=== PATIENT | female | born 1995 | race Caucasian/White ===

== ENCOUNTER → 2016-09-14 | Outpatient (CLI) | payer MEDICAID ==
[~2016-09-14] MED LIST: ACETAMINOPHEN-H1 TA2 PO; AMOXICILLIN 50500 MG PO; AMOXICILLIN500 M2 PO; BUSPIRONE HCL7.5 MG PO; CEFDINIR 300MG300 MG PO; CITALOPRAM HYDR10 MG PO; ETODOLAC200 MG PO; ETODOLAC400 MG PO; FLEXERIL10 MG PO; KEFLEX 500MG.500 MG PO; MACROBID 100MG100 MG PO; MACROBID100 M3 PO; MOBIC15 MG PO; MOTRIN 400MG.400 MG PO; MOTRIN 600MG.600 MG PO; NAPROSYN 500MG500 MG PO; NAPROSYN500 M1 PO; NAPROXEN SOD.550 MG PO; NICOTINE T21 MG/24 H TD; NITROFURANTOIN100 M4 PO; PAROXETINE HCL10 MG PO; PERCOCET 5/3251 EACH PO; PHENERGAN25 M3 PO; PREDNISONE 20MG20 MG PO; PRENATAL PLUS1 TA1 PO; TRAZODONE 50MG50 MG PO; TYLENOL WITH CO1 TA1 PO; TYLENOL325 MG PO; ULTRAM50 MG PO; ZITHROMAX Z PA250 MG PO; ZOFRAN ODT4 MG PO
--- NOTE | 2016-09-14 20:54 | RADIOLOGY REPORT PS360 ---
ULTRASOUND THYROID PROCEDURE: Multiple sagittal & transverse ultrasound images of the thyroid. HISTORY: COMPARISON 06/09/2016:. ----- FINDINGS: Small bilateral thyroid nodules evident. Bilateral thyroid enlargement. Minimal color flow bilateral. If anything slightly diminished. RIGHT LOBE: 4.9 cm x 1.7cm x 1.5 cm. Small Nodule: 4 mm x 5.2 mm solid nodule anterior aspect midportion right lobe. (No appreciablel change since May 2016 when measured from similar points.) LEFT LOBE: 4.5 cm x 2 cm x 1.3 cm. Small Nodule : 5.5 mm vague solid nodule posterior aspect mid left lobe The nodule left lobe does measure less than 1 mm mm greater than previous study, but I believe this is merely variations in measurements with no significant change. . ISTHMUS: Appears normal 3 mm AP ---- IMPRESSION 1. Gland is enlarged bilaterally 2.. No prominent findings. No significant change since prior studies. Small unimpressive singular thyroid nodules at both right and left lobe again noted. .
== END ==
LOC: RAD 13:00
DX: E04.9 Nontoxic goiter, unspecified (principal); E04.2 Nontoxic multinodular goiter; R13.10 Dysphagia, unspecified

== ENCOUNTER → 2016-09-17 | Outpatient (CLI) | payer MEDICAID ==
[2016-09-17 14:49] LABS: BUN 13 mg/dL (7-18)
[2016-09-17 14:50] LABS: GFR (ESTIMATED) 106 ML/MIN (59-)
[2016-09-17 14:54] LABS: LYMPH # 1.2 K/mm3 (0.7-4.5); LYMPH % 10.4 % (10-50.0)
== END ==
LOC: LAB 14:27
PROVIDERS: Surgery
DX: N63 Unspecified lump in breast (principal); Z01.812 Encounter for preprocedural laboratory examination

== ENCOUNTER 2016-09-18 06:59 | Day surgery (SDC) | payer MEDICAID ==
[~2016-09-18] VITALS: Ht 167.6 cm; Wt 83.9 kg
[~2016-09-18 06:59] MED LIST changes: -ETODOLAC200 MG PO
--- NOTE | 2016-09-18 12:17 | Operative Note ---
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 After discussion with the patient concerning the risks and benefits, complete excision of the lesion was recommended. Findings: Radiographic confirmation of lesion Procedure Description: The patient had a localization needle placed in radiology prior to presenting to the operating room. Please see separate radiology report for detail. After informed consent was obtained, the patient was taken to the operating room and placed in the supine position. General anesthesia was induced the patient's RIGHT breast was prepped and draped in a sterile fashion. After infiltration with local anesthetic a curvilinear incision was made just medial to the localization needle exit site. The deep subcutaneous tissue was dissected with scalpel and electrocautery. The localization needle was brought out through the incision. The surrounding breast tissue that had been marked by the localization needle was excised with electrocautery and passed off for pathologic evaluation after being confirmed in the radiology department. Again, the lesion was noted radiographically in the specimen. It also should be noted that the specimen was marked for margin. The dyed suture was utilized to shahid the lateral and superior margins (short superior/along lateral). The non-dyed suture was utilized to shahid the superficial and deep margins (short superficial/long deep). The wound was thoroughly irrigated. Electrocautery was utilized to achieve hemostasis. Metallic clips are placed along the wound base and margin. The deep subcutaneous tissue was reapproximated with interrupted Vicryl and skin was closed with 4-0 Monocryl in a running subcuticular fashion. Steri-Strips were applied and the patient's anesthetic agents were reversed. Her laryngeal mask airway was removed prior to transfer to recovery. EBL (ml): 25 Anesthesia: General Complications: No immediate Specimens: RIGHT breast lesion Disposition Disposition: Stable to recovery from where she will be discharged home. She will follow-up in one week. at 1216
--- NOTE | 2016-09-18 13:00 | RADIOLOGY REPORT PS360 ---
US BREAST BX-NEEDLE LOC-RT, DIG MAMM-SURGICAL SPECIMEN, US ORGAN SITE (BREAST), US BREAST-RT COMPLETE W/AXILLA CLINICAL INDICATION: Right breast mass, desired for surgical excision BREAST MASS COMPARISON: Previous ultrasound of 08/19/2016 FINDINGS: TECHNIQUE: Following obtaining informed consent under aseptic conditions and local anesthesia with 1% lidocaine, using sonographic guidance, a 5 cm Kopan's needle was inserted into the nodule within the inferior periareolar region of the right breast and the wire was employed and deemed to be in good position by ultrasound. The patient tolerated the procedure well without evidence of immediate common location and left radiology suite in stable condition. Surgical specimen: Ultrasound and mammogram performed of the surgical specimen confirming that the nodule is present within the specimen with wire through the nodule Pathology: Pending IMPRESSION: Successful ultrasound-guided wire localization of right breast nodule
[2016-09-18 14:02] VITALS: BP 121/65
[2016-12-04] MEDS ORDERED: ETODOLAC200 MG PO (00:01)
== END 2016-09-18 13:35 | disposition home or self-care (01) ==
LOC: SDC 06:59
PROVIDERS: Surgery
PROC: 0HBT0ZX Excision of Right Breast, Open Approach, Diagnostic (ICD-10-PCS; principal; 2016-09-18 10:00)
DX: N60.11 Diffuse cystic mastopathy of right breast (principal)
CPT/HCPCS: J0131; J2405

== ENCOUNTER → 2017-04-05 | Outpatient (CLI) | payer MEDICAID ==
[~2017-04-05] MED LIST changes: +ALBUTEROL-200 PUFFS/ IH; +ETODOLAC200 MG PO
[2017-04-05 14:38] LABS: FASTING URINE GLUCOSE NEGATIVE
[2017-04-05 15:33] LABS: LYMPH # 1.5 K/mm3 (0.7-4.5); LYMPH % 12.4 % (10-50.0)
[2017-04-05 16:45] LABS: ABO BLOOD TYPE A; RH BLOOD TYPE POSITIVE
--- NOTE | 2017-04-05 16:48 | RADIOLOGY REPORT PS360 ---
US PREG COMP: US PREG COMP: INDICATION: 20 WEEK ANATOMICAL SURVEY ORDERING PHYSICIAN: Ino Nava MD PATIENT AGE: 22 years TECHNIQUE: ultrasound transabdominal scanning. COMPARISON: No previous relevant studies. FINDINGS: Single viable intrauterine gestation. Breech position. Placenta: Posterior placenta grade 1. There is average amount fluid. The cervix appears satisfactory. Closed and measuring 3 cm in length. Complete survey performed and was unremarkable on the submitted images as in PACS. No discrete anomalies identified on survey imaging by technologist. Active fetus. Three-vessel cord with satisfactory umbilical cord insertion. 4- chamber heart noted. Survey of brain & ventricles. Face and neck survey unremarkable. Diaphragm and chest views unremarkable. Abdomen: Both kidneys noted and unremarkable. Stomach noted and satisfactory. Spine: Survey of the spine satisfactory with no anomalies identified nor imaged. Both arms and legs noted. Amniotic Fluid: Adequate. Maternal adnexa: No significant findings. Measurements: Average ultrasound age 27 weeks 2 days. Gestational Age unknown. Estimated due date by ultrasound age 1007/03/2017. Estimated weight 1028 g grams. BPD = 26 weeks 5 days OFD = 29 weeks 2 days HC = 28 weeks 1 day AC = 27 weeks 4 days FL = 26 weeks 3 days Heart Rate = 152 BPM Cerebellum = 27 weeks 4 days Humerus = 27 weeks 3 days HC/AC is 1.12. CI is 69%. FL/BPD is 74%. FL/AC is 21%. IMPRESSION: There is a single live fetus present in breech presentation. Average ultrasound age is 27 weeks 2 days. No obvious anomalies. Posterior placenta with no evidence of previa. Please see above for detail.
[2017-04-05 17:03] LABS: 1 HR URINE GLUCOSE NEGATIVE mg/ml
[2017-04-07 08:42] LABS: HIV Screen 4th Generation wRfx Non Reactive (Non Reactive); Rapid Plasma Reagin, Quant Non Reactive (NonRea<1:1)
[2017-04-07 09:37] LABS: HBsAg Screen Negative (Negative)
[2017-04-08 06:41] LABS: Rubella Antibodies, IgG 3.68 index (Immune >0.99)
== END ==
LOC: LAB 12:31 → RAD 12:31
PROVIDERS: Nurse Practitioner Obstetrics & Gynecology
DX: Z34.80 Encounter for supervision of other normal pregnancy, unspecified trimester (principal)
CPT/HCPCS: G0432

== ENCOUNTER 2017-04-07 15:21 | Emergency (ER) | payer MEDICAID ==
[~2017-04-07] VITALS: Ht 167.6 cm; Wt 90.7 kg
[~2017-04-07 15:21] MED LIST changes: -ALBUTEROL-200 PUFFS/ IH
--- OUTSIDE RECORDS SUMMARY | 2017-04-07 15:35 | External Medical Summary Rpt ---
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 ALS SERVICE SERVICE EMERGENCY TRANSPORT LEVEL 1 91343 MICHAEL GROSSMAN NONSTRESS 6 CHAUNCEY SHAW SONAM TEST URNLS DIP 57019 TOM SANTOS 6 [facility] STICK/TAB INC INC LET REAGENT AUTO MICROSCOP Y DRUG TST G0477 TOM SANTOS PRESUMP;C 6 [facility] PBL [place]ING [place] [address] TOM SANTOS INFUSION 6 [facility] THERAPY/P INC INC ROPHYLAXI S /DX 1ST TO 1 HR UNCLASSIF J3490 TOM SANTOS IED DRUGS 6 [place] [address] TOM SANTOS INFUSION 6 [facility] THERAPY INC INC PROPHYLAX IS/DX EA HOUR CULTURE 75163 TOM SANTOS BACTERIAL 6 [facility] INC INC QUANTTATI VE COLONY COUNT URINE BLOOD 43115 TOM SANTOS COUNT 6 [facility] COMPLETE INC INC AUTO&AUTO DIFRNTL WBC UNCLASSIF J3490 TOM SANTOS IED DRUGS 6 [facility] INC INC URNLS DIP 36257 TOM SANTOS 6 [facility] STICK/TAB INC INC LET REAGENT AUTO MICROSCOP Y COMPREHEN 49520 TOM SANTOS SIVE 6 [facility] METABOLIC INC INC PANEL DRUG TST G0477 TOM SANTOS PRESUMP;C 6 [facility] PBL BEING INC INC READ DC OPT OBV ONLY URNLS DIP 76300 TOM SANTOS 6 [facility] STICK/TAB INC INC LET REAGENT AUTO MICROSCOP Y UNCLASSIF J3490 TOM SANTOS IED DRUGS 6 [facility] INC INC 16919 [facility] REECE NONSTRESS 6 PHYSICIAN JOHN TEST S GROUP CULTURE 67306 TOM SANTOS BACTERIAL 6 [facility] INC INC QUANTTATI VE COLONY COUNT URINE DRUG TST G0477 [facility] NEWELL PRESUMP;C 6 PHYSICIAN JOHN PBL BEING S GROUP READ DC OPT OBV ONLY INF AGT G0432 TOM SANTOS AB DETECT 6 [facility] EIA TECH INC INC HIV-1&/HI V-2 SCR US PREG 61895 [facility] REECE UTERUS 6 PHYSICIAN JOHN AFTER 1ST S GROUP TRIMEST GESTATION COLLECTIO 49675 TOM SANTOS N VENOUS 6 [facility] BLOOD INC INC VENIPUNCT URE OBSTETRIC 30358 TOM SANTOS PANEL 6 [facility] INC INC COMPREHEN 38131 TOM SANTOS SIVE 5 [facility] METABOLIC INC INC PANEL URNLS DIP 23569 TOM SANTOS 5 [facility] STICK/TAB INC INC LET REAGENT AUTO MICROSCOP Y BLOOD 36153 TOM SANTOS COUNT 5 [facility] COMPLETE INC INC AUTO&AUTO DIFRNTL WBC AMB A0427 [facility] SERVICE 5 AMBULANCE AMBULANCE ALS SERVICE SERVICE EMERGENCY TRANSPORT LEVEL 1 GROUND A0425 [facility] MILEAGE 5 AMBULANCE AMBULANCE PER SERVICE SERVICE STATUTE MILE THER 11275 TOM SANTOS PROPH/DX 5 [facility] NJX EA INC INC SEQL IV PUSH SBST/DRUG FAC BLOOD 34623 TOM SANTOS COUNT 5 [facility] COMPLETE INC INC AUTO&AUTO DIFRNTL WBC THER 89673 TOM SANTOS PROPH/DX 5 [facility] NJX IV INC INC PUSH SINGLE/1S T SBST/DRUG URNLS DIP 07291 TOM SANTOS 5 [facility] STICK/TAB INC INC LET REAGENT AUTO MICROSCOP Y UNCLASSIF J3490 TOM SANTOS IED DRUGS 5 [facility] INC INC BASIC 57902 TOM SANTOS METABOLIC 5 [facility] PANEL INC INC CALCIUM TOTAL US PREG 38661 [place] [facility] UTERUS 5 MEDICAL ANAND REAL TIME IMAGING W/IMAGE ASS DCMTN TRANSVAG URNLS DIP 69565 TOM SANTOS 5 [facility] STICK/TAB INC INC LET REAGENT AUTO MICROSCOP Y CULTURE 93075 TOM SANTOS BACTERIAL 5 [facility] INC INC QUANTTATI VE COLONY COUNT URINE URINE 27844 TOM SANTOS 5 [facility] TEST INC INC VISUAL COLOR CMPRSN METHS URINE 23181 TOM SANTOS 5 [facility] TEST INC INC VISUAL COLOR CMPRSN METHS URNLS DIP 42208 TOM SANTOS 5 [facility] STICK/TAB INC INC LET REAGENT AUTO MICROSCOP Y Encounters Encounter Start End Date Code Location Performer Type Date OFFICE 39837 TOM MOORE 7 7 [facility] T VISIT 5 INC MINUTES [facility]PITAL TOM - 7 7 [facility] T[facility] - 7 7 [facility] OUT[facility]EN [facility] EMERGENCY 97349 TOM 7 7 [facility] T VISIT LOW/MODER SEVERITY EMERGENCY 55437 LESLIE WHYTE DEPT 7 7 PHYSICIAN [facility] HIGH SEVERITY& THREAT FUNCJ EMERGENCY 11917 LESLIE WHYTE 7 7 [facility] T VIS[facility] HIGH/URGE NT SEVERITY OFFICE 87089 A C KILPELA OUTPATIEN 7 7 [facility] SHAW T VISIT PSC 15 MINUTES EMERGENCY 96133 LESLIE COLE 7 7 PHYSICIAN [facility] T VISIT HIGH/URGE NT SEVERITY OFFICE 63685 TOM CHIANGPATIEN 7 7 [facility] T VISIT 5 INC MINUTES HOSPITAL TOM - 7 7 [facility] OUT[facility] OFFICE 87361 A C KILPELA OUTPATIEN 7 7 [facility] SHAW T VISIT PSC 15 MINUTES OFFICE 88257 A C KILPELA OUTPATIEN 7 7 [facility] SHAW T VISIT PSC 15 MINUTES HOSPITAL TOM - 7 7 [facility] H[facility]PITAL TOM - 7 7 [facility]PATIEN [facility] HOSPITAL TOM - 7 7 [facility]PAT[facility] OFFICE 07687 [facility] SAIGE CONSULTAT 7 7 PHYSICIAN ION S GROUP NEW/ESTAB PATIENT 30 MIN HOSPITAL TOM - 6 6 [facility] OUTPATIEN [facility] EMERGENCY 89591 LESLIE WHYTE 6 6 PHYSICIAN [facility] T VISIT MODERATE SEVERITY EMERGENCY 79548 LESLIE WHYTE 6 6 PHYSICIAN [facility] T VISIT HIGH/URGE NT SEVERITY OFFICE 93218 [facility] REECE OUTPATIEN 6 6 PHYSICIAN JOHN T VISIT S GROUP 15 MINUTES HOSPITAL TOM - 6 6 [facility] OUTPATIEN INC T OFFICE 49107 A C VALE OUTPATIEN 6 6 AIXA Lakhani VISIT PSC 15 MINUTES OFFICE 64433 [facility] REECE OUTPATIEN 6 6 PHYSICIAN JOHN T VISIT S GROUP 25 MINUTES EMERGENCY 66416 LESLIE COLE [address] [facility] T VISIT HIGH/URGE NT SEVERITY OFFICE 07840 [facility] MATILDE OUTZEV 6 6 PHYSICIAN KATHERINE T NEW 20 S GROUP MINUTES HOSPITAL TOM - 6 6 [facility] OUTPATIEN INC T EMERGENCY 73245 LESLIE WHYTE 6 6 PHYSICIAN [facility] DEPARTMEN S, PLLC T VISIT HIGH/URGE NT SEVERITY EMERGENCY 18716 LESLIE LEMUS [address] [facility] T VISIT MODERATE SEVERITY EMERGENCY 47160 LESLIE COLE 6 6 PHYSICIAN [facility] T VISIT MODERATE SEVERITY OFFICE 22610 A C VALE OUTPATIEN 6 6 AIXA MACEDO T VISIT PSC 15 MINUTES HOSPITAL TOM - 6 6 [facility] OUTPATIEN INC T OFFICE 18982 A C APOORVA OUTPATIEN 6 6 AIXA STRANGE 45 PSC MINUTES EMERGENCY 42850 LESLIE WHYTE DEPT 6 6 PHYSICIAN MI VISIT S, PLLC HIGH SEVERITY& THREAT FUNCJ EMERGENCY 84480 LESLIE WHYTE 6 6 PHYSICIAN MI DEPARTMEN S, PLLC T VISIT MODERATE SEVERITY EMERGENCY 59421 TOM 6 6 [facility] T VISIT LIMITED/M INOR PROB EMERGENCY 63968 LESLIE ISABELL 6 6 PHYSICIAN MI [facility] LOW/MODER SEVERITY HOSPITAL TOM - 6 6 [facility] OUTPATIEN INC T EMERGENCY 76711 LESLIE ISABELL 6 6 PHYSICIAN [facility] T VISIT MODERATE SEVERITY HOSPITAL TOM - 6 6 [facility] OUTPATIEN INC T EMERGENCY 23885 TOM 6 6 [facility] DEPARTMEN INC T VISIT LOW/MODER SEVERITY EMERGENCY 63364 TOM 6 6 [facility] DEPARTMEN INC T VISIT LOW/MODER SEVERITY HOSPITAL TOM - 6 6 [facility] OUTPATIEN INC T EMERGENCY 71370 LESLIE ISABELL 6 6 PHYSICIAN [facility], [facility] T VISIT MODERATE SEVERITY EMERGENCY 48920 LESLIE ANDINOEY 6 6 PHYSICIAN [facility] T VISIT MODERATE SEVERITY EMERGENCY 31566 TOM 6 6 [facility] T VISIT LOW/MODER SEVERITY EMERGENCY 20778 LESLIE GREENUSCH 6 6 PHYSICIAN FAIZA BARKLEY S [facility] T VISIT MODERATE SEVERITY HOSPITAL TOM - 6 6 [facility] T EMERGENCY 79662 LESLIE CHAMBERLAINH 6 6 PHYSICIAN FAIZA [facility] S [facility] T VISIT HIGH/URGE NT SEVERITY EMERGENCY 03634 TOM 6 6 [facility] MODERATE SEVERITY HOSPITAL TOM - 6 6 [facility] OUTPATIEN INC T EMERGENCY 97206 LESLIE ISABELL 6 6 PHYSICIAN [facility], [facility] T VISIT HIGH/URGE NT SEVERITY HOSPITAL TOM - 6 6 [facility] OUTPATIEN INC T EMERGENCY 07869 TOM 6 6 [facility] T VISIT LOW/MODER SEVERITY OFFICE 94432 [facility] MARTINEZ 6 6 PHYSICIAN JOHN T VISIT S GROUP 15 MINUTES EMERGENCY 10515 TOM 6 6 [facility] T VISIT LOW/MODER SEVERITY EMERGENCY 21858 LESLIE COLE DEPT 6 6 PHYSICIAN U ANAND [facility] HIGH SEVER[facility]& THREAT [facility] TOM - 6 6 [facility] OUTPATIEN INC T EMERGENCY 78573 LESLIE WHYTE 6 6 PHYSICIAN [facility] T VISIT HIGH/URGE NT SEVERITY EMERGENCY 49725 TOM 6 6 [facility] T VISIT LOW/MODER SEVERITY HOSPITAL TOM - 6 6 [facility] T EMERGENCY 45728 LESLIE WHYTE 6 6 PHYSICIAN [facility] T VISIT MODERATE SEVERITY HOSPITAL TOM - 6 6 [facility] T EMERGENCY 91871 TOM 6 6 [facility] T VISIT LIMITED/M INOR PROB EMERGENCY 10307 LESLIE ANDINOEY 6 6 PHYSICIAN [facility] T VISIT HIGH/URGE NT SEVERITY EMERGENCY 98607 TOM 6 6 [facility] T VISIT LIMITED/M INOR PROB HOSPITAL TOM - 6 6 [facility] OUTPATIEN [facility] T EMERGENCY 00939 TOM 6 6 [facility] DEPARTMEN INC T VISIT LOW/MODER SEVERITY HOSPITAL TOM - 6 6 [facility] OUTPATIEN [facility] T EMERGENCY 20594 LESLIE BLOCK, 6 6 PHYSICIAN [facility], [facility] T VISIT HIGH/URGE NT SEVERITY HOSPITAL TOM - 6 6 [facility] OUTPATIEN INC T EMERGENCY 00243 TOM 6 6 [facility] T VISIT LOW/MODER SEVERITY EMERGENCY 80861 LESLIE WHYTE 6 6 [facility]ICIAN [facility] T VISIT MODERATE SEVERITY HOSPITAL TOM - 6 6 [facility] INPATIENT [facility] TOM [facility] 6 6 [facility] OUTPATIEN [facility] OFFICE 50920 [facility] 6 6 PHYSICIAN JOHN T VISIT S GROUP 15 MINUTES HOSPITAL TOM - 6 6 [facility] OUTPATIEN [facility] EMERGENCY 51047 LESLIE WHYTE 6 6 PHYSICIAN [facility], [facility] T VISIT HIGH/URGE NT SEVERITY EMERGENCY 32923 TOM 6 6 [facility] T VISIT MODERATE SEVERITY HOSPITAL TOM - 6 6 [facility] OUTPATIEN [facility] H[facility]PITAL TOM - 6 6 [facility] OUTPATIEN [facility] H[facility]PITAL TOM [facility] 6 6 [facility] OUTPATIEN [facility] H[facility]PITAL TOM - 5 5 [facility] EMERGENCY 18404 LESLIE WHYTE 5 5 PHYSICIAN [facility] DEPARTMEN S, [facility] T VISIT HIGH/URGE NT SEVERITY EMERGENCY 44904 TOM 5 5 [facility] T VISIT LOW/MODER SEVERITY EMERGENCY 01899 LESLIE MCGOWAN 5 5 PHYSICIAN DEPARTMEN S, [facility] T VISIT HIGH/URGE NT SEVERITY EMERGENCY 56339 TOM 5 5 [facility] T VISIT MODERATE SEVERITY HOSPITAL TOM - 5 5 [facility] T EMERGENCY 14635 LESLIE MENDEZ 5 5 PHYSICIAN DEPARTMEN S, [facility] T VISIT HIGH/URGE NT SEVERITY EMERGENCY 75728 TOM 5 5 [facility] T VISIT LOW/MODER SEVERITY HOSPITAL TOM - 5 5 [facility] EMERGENCY 73121 TOM 5 5 [facility] T VISIT LOW/MODER SEVERITY HOSPITAL TOM - 5 5 [facility]
--- OUTSIDE RECORDS SUMMARY | 2017-04-07 15:35 | External Medical Summary Rpt ---
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 [facility]IS[facility] HIGH/URGE NT SEVERITY EMERGENCY 24827 TOM 6 6 [facility] INC T VISIT MODERATE SEVERITY HOSPITAL TOM - 6 6 [facility] OUTPATIEN INC T EMERGENCY 47136 LESLIE ISABELL 6 6 PHYSICIAN [facility], [facility]IS[facility] HIGH/URGE NT SEVERITY HOSPITAL TOM - 6 6 [facility] OUTPATIEN INC T EMERGENCY 88658 TOM 6 6 [facility] T VISIT LOW/MODER SEVERITY OFFICE 99223 [facility] 6 PHYSICIAN JOHN T VISIT S GROUP 15 MINUTES EMERGENCY 63361 TOM 6 6 [facility] T VISIT LOW/MODER SEVERITY EMERGENCY 76652 LESLIE COLE DEPT 6 6 PHYSICIAN U ANAND VISIT [facility] HIGH SEVERITY& THREAT [facility] TOM - 6 6 [facility] OUTPATIEN INC T EMERGENCY 96148 LESILE WHYTE 6 6 PHYSICIAN [facility], [facility] T VISIT HIGH/URGE NT SEVERITY EMERGENCY 19948 TOM 6 6 [facility] T VISIT LOW/MODER SEVERITY HOSPITAL TOM - 6 6 [facility] T EMERGENCY 56842 LESLIE WHYTE 6 6 PHYSICIAN [facility], [facility] T VISIT MODERATE SEVERITY HOSPITAL TOM - 6 6 [facility] T EMERGENCY 49795 TOM 6 6 [facility] T VISIT LIMITED/M INOR PROB EMERGENCY 72599 LESLIE ANDINOEY 6 6 PHYSICIAN [facility] S, [facility] T VISIT HIGH/URGE NT SEVERITY EMERGENCY 80881 TOM 6 6 [facility] T VISIT LIMITED/M INOR PROB HOSPITAL TOM - 6 6 [facility] T EMERGENCY 17229 TOM 6 6 [facility] DEPARTMEN INC T VISIT LOW/MODER SEVERITY HOSPITAL TOM - 6 6 [facility] T EMERGENCY 00552 LESLIE BLOCK, 6 6 PHYSICIAN [facility] S, [facility] T VISIT HIGH/URGE NT SEVERITY HOSPITAL TOM - 6 6 [facility] T EMERGENCY 16233 TOM 6 6 [facility] T VISIT LOW/MODER SEVERITY EMERGENCY 11646 LESLIE WHYTE 6 6 PHYSICIAN [facility], [facility] T VISIT MODERATE SEVERITY HOSPITAL TOM - 6 6 [facility] INPATIENT [facility] TOM [facility] 6 6 [facility] OUTPATIEN [facility] OFFICE 97007 [facility] PHYSICIAN JOHN T VISIT S GROUP 15 MINUTES HOSPITAL TOM - 6 6 [facility] OUTPATIEN [facility] EMERGENCY 06970 LESLIE WHYTE 6 6 PHYSICIAN [facility] S, [facility] T VISIT HIGH/URGE NT SEVERITY EMERGENCY 51460 TOM 6 6 [facility] T VISIT MODERATE SEVERITY HOSPITAL TOM - 6 6 [facility] OUTPATIEN [facility] HOSPITAL TOM - 6 6 [facility] OUTPATIEN [facility] HOSPITAL TOM - 6 6 [facility] OUTPATIEN [facility] HOSPITAL TOM - 5 5 [facility] EMERGENCY 95027 ELSLIE WHYTE 5 5 PHYSICIAN [facility] HIGH/URGE NT SEVERITY EMERGENCY 50717 TOM 5 5 [facility] T VISIT LOW/MODER SEVERITY EMERGENCY 66932 LESLIE MCGOWAN 5 5 PHYSICIAN [facility], [facility] HIGH/URGE NT SEVERITY EMERGENCY 69511 TOM 5 5 [facility] T VISIT MODERATE SEVERITY HOSPITAL TOM - 5 5 [facility] T EMERGENCY 62236 LESLIE MENDEZ 5 5 PHYSICIAN [facility], [facility] HIGH/URGE NT SEVERITY EMERGENCY 78161 TOM 5 5 [facility] T VISIT LOW/MODER SEVERITY HOSPITAL TOM - 5 5 [facility] 44453 TOM 5 5 [facility] T VISIT LOW/MODER SEVERITY HOSPITAL TOM - 5 5 [facility]
--- OUTSIDE RECORDS SUMMARY | 2017-04-07 15:40 | External Medical Summary Rpt ---
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 EMERGENCY 91959 LESLIE WHYTE 6 6 PHYSICIAN MI DEPARTMEN S, PLLC T VISIT MODERATE SEVERITY HOSPITAL TOM - 6 6 [facility] OUTPATIEN INC T EMERGENCY 51891 TOM 6 6 [facility] DEPARTMEN INC T VISIT LIMITED/M INOR PROB EMERGENCY 26074 LESLIE WHYTE 6 6 PHYSICIAN MI DEPARTMEN S, PLLC T VISIT LOW/MODER SEVERITY HOSPITAL TOM - 6 6 [facility] OUTPATIEN INC T EMERGENCY 41995 LESLIE WHYTE 6 6 PHYSICIAN MI DEPARTMEN S, PLLC T VISIT MODERATE SEVERITY EMERGENCY 40771 TOM 6 6 [facility] DEPARTMEN INC T VISIT LOW/MODER SEVERITY HOSPITAL TOM - 6 6 [facility] OUTPATIEN INC T EMERGENCY 39893 LESLIE WHYTE 6 6 PHYSICIAN MI DEPARTMEN S, PLLC T VISIT MODERATE SEVERITY EMERGENCY 83101 TOM 6 6 [facility] DEPARTMEN INC T VISIT LOW/MODER SEVERITY EMERGENCY 75263 LESLIE WHYTE 6 6 PHYSICIAN MI DEPARTMEN S, PLLC T VISIT MODERATE SEVERITY EMERGENCY 72357 TOM 6 6 [facility] DEPARTMEN INC T VISIT LOW/MODER SEVERITY EMERGENCY 18574 LESLIE LEMUS 6 6 PHYSICIAN FAIZA DEPARTMEN S, PLLC T VISIT MODERATE SEVERITY HOSPITAL TOM - 6 6 [facility] OUTPATIEN INC T EMERGENCY 27569 LESLIE LEMUS 6 6 [facility]IC[facility], [facility] T VISIT HIGH/URGE NT SEVERITY EMERGENCY 70823 TOM 6 6 [facility] T VISIT MODERATE SEVERITY HOSPITAL TOM - 6 6 [facility] T EMERGENCY 48822 LESLIE WHYTE 6 6 PHYSICIAN [facility] S, [facility] T VISIT HIGH/URGE NT SEVERITY EMERGENCY 57580 TOM 6 [address] [facility] T VISIT LOW/MODER SEVERITY HOSPITAL TOM - 6 6 [facility] 11339 [facility] 6 6 PHYSICIAN JOHN T VISIT S GROUP 15 MINUTES HOSPITAL TOM - 6 6 [facility] EMERGENCY 91215 LESLIE COLE DEPT 6 6 PHYSICIAN Bonita MICHEL VISIT [facility] HIGH SEVERITY& THREAT FUNCJ EMERGENCY 56439 TOM 6 [address] [facility] T VISIT LOW/MODER SEVERITY EMERGENCY 19376 LESLIE WHYTE 6 6 PHYSICIAN [facility] S [facility] T VISIT HIGH/URGE NT SEVERITY EMERGENCY 43360 TOM 6 [address] [facility] T VISIT LOW/MODER SEVERITY HOSPITAL TOM - 6 6 [facility] EMERGENCY 59096 LESLIE WHYTE 6 6 PHYSICIAN [facility] S, [facility] T VISIT MODERATE SEVERITY HOSPITAL TOM - 6 6 [facility] T EMERGENCY 90634 TOM 6 6 [facility] T VISIT LIMITED/M INOR PROB EMERGENCY 91604 LESLIE WHYTE 6 6 PHYSICIAN [facility] S, [facility] T VISIT HIGH/URGE NT SEVERITY HOSPITAL TOM - 6 6 [facility] OUTPATIEN [facility] T EMERGENCY 76521 TOM 6 6 [facility] T VISIT LIMITED/M INOR PROB HOSPITAL TOM - 6 6 [facility] OUTPATIEN [facility] T EMERGENCY 91311 TOM 6 [address] [facility] T VISIT LOW/MODER SEVERITY EMERGENCY 64020 LESLIE BLOCK, 6 6 PHYSICIAN [facility], [facility] T VISIT HIGH/URGE NT SEVERITY HOSPITAL TOM - 6 6 [facility] OUTPATIEN [facility] EMERGENCY 79953 LESLIE WHYTE 6 6 PHYSICIAN [facility], [facility] T VISIT MODERATE SEVERITY EMERGENCY 23970 TOM 6 6 [facility] T VISIT LOW/MODER SEVERITY HOSPITAL TOM - 6 6 [facility] INPATIENT [facility] H[facility]PITAL TOM [facility] 6 6 [facility] OUTPATIEN [facility] OFFICE 73814 [facility] 6 6 PHYSICIAN JOHN T VISIT S GROUP 15 MINUTES HOSPITAL TOM [facility] 6 6 [facility] OUTPATIEN [facility] EMERGENCY 81498 TOM 6 [address] [facility] T VISIT MODERATE SEVERITY HOSPITAL TOM - 6 6 [facility] OUTPATIEN [facility] T EMERGENCY 63223 LESLIE WHYTE 6 6 PHYSICIAN [facility], [facility] T VISIT HIGH/URGE NT SEVERITY HOSPITAL TOM - 6 6 [facility] OUTPATIEN [facility] TOM - 6 6 [facility] OUTPATIEN [facility] T EMERGENCY 00996 [facility]OM 5 [address] [facility] T VISIT LOW/MODER SEVERITY HOSPITAL TOM - 5 5 [facility] OUTPATIEN INC T EMERGENCY 10807 LESLIE WHYTE 5 5 PHYSICIAN [facility] DEPARTMEN S, [facility] T VISIT HIGH/URGE NT SEVERITY EMERGENCY 01343 LESLIE MCGOWAN 5 5 PHYSICIAN DEPARTMEN S, [facility] T VISIT HIGH/URGE NT SEVERITY EMERGENCY 05881 [facility] 5 [facility] T VISIT MODERATE SEVERITY HOSPITAL TOM - 5 5 [facility] OUTPATIEN [facility] T EMERGENCY 08424 LESLIE MENDEZ 5 5 PHYSICIAN DEPARTMEN S, [facility] T VISIT HIGH/URGE NT SEVERITY HOSPITAL TOM - 5 5 [facility] OUTPATIEN INC T EMERGENCY 60628 [facility]OM 5 5 [facility] T VISIT [facility]OW[facility]MODER SEVERITY HOSPITAL TOM - 5 5 [facility] OUTPATIEN INC T EMERGENCY 71025 [facility]OM 5 5 [facility] T VISIT LOW/MODER SEVERITY
--- OUTSIDE RECORDS SUMMARY | 2017-04-07 15:40 | External Medical Summary Rpt ---
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 6 [facility] T VISIT LOW/MODER SEVERITY HOSPITAL TOM [facility] 6 6 [facility] EMERGENCY 25869 LESLIE WHYTE 6 6 PHYSICIAN [facility] S, [facility] T VISIT MODERATE SEVERITY HOSPITAL TOM - 6 6 [facility] T EMERGENCY 26528 TOM 6 6 [facility] T VISIT LIMITED/M INOR PROB EMERGENCY 84973 LESLIE WHYTE 6 6 PHYSICIAN [facility] S, [facility] T VISIT HIGH/URGE NT SEVERITY HOSPITAL TOM - 6 6 [facility] OUTPATIEN [facility] T EMERGENCY 93407 [facility] T VISIT LIMITED/M INOR PROB HOSPITAL TOM - 6 6 [facility] OUTPATIEN [facility] T EMERGENCY 29461 TOM 6 6 [facility] T VISIT LOW/MODER SEVERITY EMERGENCY 08048 LESLIE BLOCK, 6 6 PHYSICIAN [facility], [facility] T VISIT HIGH/URGE NT SEVERITY HOSPITAL TOM - 6 6 [facility] OUTPATIEN [facility], [facility] EMERGENCY 02428 LESLIE WHYTE 6 6 PHYSICIAN [facility], [facility] T VISIT MODERATE SEVERITY EMERGENCY 87809 TOM 6 6 [facility] T VISIT LOW/MODER SEVERITY HOSPITAL TOM - 6 6 [facility] INPATIENT [facility] HOSPITAL TOM [facility] 6 6 [facility] OUTPATIEN [facility], [facility] OFFICE 73444 [facility] 6 6 PHYSICIAN JOHN T VISIT S GROUP 15 MINUTES HOSPITAL TOM [facility] 6 6 [facility] OUTPATIEN [facility] EMERGENCY 70453 TOM 6 6 [facility] T VISIT MODERATE SEVERITY HOSPITAL TOM - 6 6 [facility] OUTPATIEN [facility] T EMERGENCY 45927 LESLIE WHYTE 6 6 PHYSICIAN [facility], [facility] T VISIT HIGH/URGE NT SEVERITY HOSPITAL TOM - 6 6 [facility] OUTPATIEN [facility] HOSPITAL TOM [facility] 6 6 [facility] OUTPATIEN [facility] T EMERGENCY 10777 TOM 5 5 [facility] T VISIT LOW/MODER SEVERITY HOSPITAL TOM - 5 5 [facility] OUTPATIEN INC T EMERGENCY 50431 LESLIE WHYTE 5 5 PHYSICIAN [facility] DEPARTMEN S, [facility] T VISIT HIGH/URGE NT SEVERITY EMERGENCY 38784 LESLIE MCGOWAN 5 5 PHYSICIAN DEPARTMEN S, [facility] T VISIT HIGH/URGE NT SEVERITY EMERGENCY 30892 [facility] T VISIT MODERATE SEVERITY HOSPITAL TOM - 5 5 [facility] OUTPATIEN [facility] T EMERGENCY 75723 LESLIE MENDEZ 5 5 PHYSICIAN DEPARTMEN S, [facility] T VISIT HIGH/URGE NT SEVERITY HOSPITAL TOM - 5 5 [facility] OUTPATIEN INC T EMERGENCY 09182 TOM 5 5 [facility] T VISIT LOW/MODER SEVERITY HOSPITAL TOM - 5 5 [facility] OUTPATIEN INC T EMERGENCY 60246 TOM 5 5 [facility] T VISIT LOW/MODER SEVERITY
--- OUTSIDE RECORDS SUMMARY | 2017-04-07 15:41 | External Medical Summary Rpt ---
Demographics Preferred Language Bengali Marital Status Unknown Faith Affiliation Unknown Race Unknown Ethnic Group Unknown Author Author , JESUS LEE Address Unknown Phone Immunization Unable to retrieve immunization data due to connection failure with Immunization Registry. Please try again later.
--- OUTSIDE RECORDS SUMMARY | 2017-04-07 15:41 | External Medical Summary Rpt ---
Author Author JESUS Opal, [employer] Address Unknown Phone Unavailable Results Glucose [Presence] in Urine by Test strip --1 hour post 75 g glucose PO Observa Value Referen Units Interpr Notes Date ti ce etation Range Glucose No mg/dL No No Apr 05 [Mass/vol informati informati informati 2017 2:05 ume] in on in on in on in PM Serum or source source source Plasma data data data --1 hour post dose glucose Glucose NEGATIV No mg/ml No No Apr 05 E informa informa informa 2016 [Presen tion in tion in tion in 2:05 PM ce] in source source source Urine data data data by Test strip Glucose NEGATIV No mg/dL No No Apr 05 E informa informa informa 2016 [Presen tion in tion in tion in 2:05 PM ce] in source source source Urine data data data by Automat ed test strip Fasting 60 - 105 mg/dL Normal No Apr 05 glucose informati 2016 2:05 [Mass/vol on in PM ume] in source Serum or data Plasma Blood group antibody screen [Presence] in Serum or Plasma Observa Value Referen Units Interpr Notes Date ti ce etation Range Blood NEGATIV NEGATIV No No No Apr 05 group E E informa informa informa 2016 antibod tion in tion in ti in 1:58 PM y source source source screen data data data [Presen ce] in Serum or Plasma Rh [Type] in Blood Observa Value Referen Units Interpr Notes Date ti ce etation Range Rh POSITIV No No No No Apr 05 [Type] E informa informa informa informa 2016 in tion in tion in tion in tion in 1:58 PM Blood source source source source data data data data ABO group [Type] in Blood Observa Value Referen Units Interpr Notes Date ce etation Range ABO A No No No No Apr 05 group informa informa informa informa 2017 [Type] tion in tion in tion in tion in 1:58 PM in source source source source Blood data data data data CBC W Auto Differential panel in Blood Observa Value Referen Units Interpr Notes Date tion ce etation Range Basophils 0 - 0.2 K/MM3 Normal No Apr 05 inform2016 1:58 [#/volume on in PM ] in source Blood by data Automated count Basophils 0.1 - 2.0 % Normal No Apr 05 / informati 2016 1:58 leukocyte on in PM s in source Blood by data Automated count Eosinophi 0.0 - 0.4 K/mm3 Normal No Apr 05 ls informati 2016 1:58 [#/volume on in PM ] in source Blood by data Automated count Eosinophi 0.1 - % Normal No Apr 05 ls/100 12.0 informati 2016 1:58 leukocyte on in PM s in source Blood by data Automated count Granulocy 1.8 - 7.8 K/mm3 High No Apr 05 gillian informati 2016 1:58 [#/volume on in PM ] in source Blood by data Automated count Granulocy 37.0 - % High No Apr 05 gillian/100 80.0 informati 2016 1:58 leukocyte on in PM s in source Blood by data Automated count Hematocri 37.0 - % Low No Apr 05 t [Volume 47.0 informati 2016 1:58 on in PM Fraction] source of Blood data Hemoglobi 12.2 - g/dL Low No Apr 05 n 16.2 informati 2016 1:58 [Mass/vol on in PM ume] in source Blood data Lymphocyt 0.7 - 4.5 K/mm3 Normal No Apr 05 es informati 2016 1:58 [#/volume on in PM ] in source Unspecifi data ed specimen by Automated count Lymphocyt 10 - 50.0 % Normal No Apr 05 es informati 2016 1:58 [#/volume on in PM ] in source Unspecifi data ed specimen by Automated count Erythrocy 27 - 31.2 pg High No Apr 05 te mean informati 2016 1:58 corpuscul on in PM ar source hemoglobi data n [Entitic mass] Erythrocy 31.8 - g/dl Normal No Apr 05 te mean 35.4 informati 2016 1:58 corpuscul on in PM ar source hemoglobi data n concentra tion [Mass/vol ume] by Automated count Erythrocy 82.2 - fl High No Apr 05 te mean 97.8 informati 2016 1:58 corpuscul on in PM ar volume source [Entitic data volume] by Automated count Monocytes 0.1 - 1.0 K/mm3 Normal No Apr 05 informati 2016 1:58 [#/volume on in PM ] in source Blood by data Automated count Monocytes 1.7 - 9.3 % Normal No Apr 05 /100 informati 2016 1:58 leukocyte on in PM s in source Blood by data Automated count Platelet 7.4 - fl Normal No Apr 05 mean 10.4 informati 2016 1:58 volume on in PM [Entitic source volume] data in Blood by Automated count Platelets 142 - 424 K/mm3 Normal No Apr 05 informati 2016 1:58 [#/volume on in PM ] in source Blood data Erythrocy 4.2 - 5.4 M/mm3 Low No Apr 05 gillian informati 2016 1:58 [#/volume on in PM ] in source Amniotic data fluid Erythrocy 11.5 - % Normal No Apr 05 te 17.5 informati 2016 1:58 distribut on in PM ion width source [Entitic data volume] by Automated count Leukocyte 4.8 - K/MM3 High No Apr 05 s 10.8 informati 2016 1:58 [#/volume on in PM ] in source Blood data Choriogonadotropin.beta subunit ( test) [Presence] in Serum or Plasma Observa Value Referen Units Interpr Notes Date tion ce etation Range Choriog 76537.3 No mIU/ML No NON-PRE February 10 onadotr informa informa GNANT 2017 opin.be tion in tion in FEMALES 9:03 PM ta source source subunit data data REFEREN CE (pregna RANGE = ncy 0 - 6 test) mIU/mLG [Presen estatio ce] in nal Age Serum or HCG Plasma RANGE0. 2 WEEKS 5 - 501-2 WEEKS 50 - 5002-3 WEEKS 100 - 5,0003- 4 WEEKS 500 - 10,0004 -5 WEEKS 1,000 - 50,0005 -6 WEEKS 10,000 - 100,000 6-8 WEEKS 15,000 - 200,000 2-3 MONTHS 10,000 - 100,000 Choriogonadotropin.beta subunit ( test) [Presence] in Serum or Plasma Observa Value Referen Units Interpr Notes Date tion ce etation Range Choriog 61808.5 No mIU/ML No NON-PRE February 04 onadotr informa informa GNANT 2017 opin.be tion in tion in FEMALES 9:50 PM ta source source subunit data data REFEREN CE (pregna RANGE = ncy 0 - 6 test) mIU/mLG [Presen estatio ce] in nal Age Serum or HCG Plasma RANGE0. 2 WEEKS 5 - 501-2 WEEKS 50 - 5002-3 WEEKS 100 - 5,0003- 4 WEEKS 500 - 10,0004 -5 WEEKS 1,000 - 50,0005 -6 WEEKS 10,000 - 100,000 6-8 WEEKS 15,000 - 200,000 2-3 MONTHS 10,000 - 100,000 Amylase [Enzymatic activity/volume] in Serum or Plasma Observa Value Referen Units Interpr Notes Date ti ce etation Range Amylase 25 - 115 U/L Normal No February 04 [Enzymati informati 2016 9:50 c on in PM activity/ source volume] data in Serum or Plasma Comprehensive metabolic 2000 panel in Serum or Plasma Observa Value Referen Units Interpr Notes Date tion ce etation Range Albumin/G 1.1 - 1.8 No Low No February 04 lobulin informati informati 2016 9:50 [Mass on in on in PM ratio] in source source Serum or data data Plasma Albumin 3.4 - 5.0 gm/dL Low No February 04 [Mass/vol informati 2016 9:50 ume] in on in PM Serum or source Plasma data Alkaline 46 - 116 U/L Normal No February 04 phosphata informati 2016 9:50 se on in PM [Enzymati source c data activity/ volume] in Serum or Plasma Bilirubin 0.2 - 1.0 mg/dL Normal No February 04 .total informati 2016 9:50 [Mass/vol on in PM ume] in source Serum or data Plasma Urea 7 - 18 mg/dL Low No February 04 nitrogen informati 2016 9:50 [Mass/vol on in PM ume] in source Serum or data Plasma Calcium 8.5 - mg/dL Normal No February 04 [Mass/vol 10.1 informati 2017 9:50 ume] in on in PM Serum or source Plasma data Chloride 98 - 107 mmoL/L Normal No February 04 [Moles/vo informati 2017 9:50 lume] in on in PM Serum or source Plasma data Carbon 21.0 - mmoL/L Normal No February 04 dioxide, 32.0 informati 2016 9:50 total on in PM [Moles/vo source lume] in data Serum or Plasma Creatinin 0.55 - mg/dL Normal No February 04 e 1.02 informati 2016 9:50 [Mass/vol on in PM ume] in source Serum or data Plasma Creatinin 50 - 200 ML/MIN High No February 04 e renal informati 2016 9:50 clearance on in PM source predicted data by Cockcroft -Gault formula Estimated 59- ML/MIN No REFERENCE February 04 informati RANGE: 2017 9:50 glomerula on in >60 PM r source ML/MIN/1. filtratio data 73 SQUARE n rate METERSIf (GF this patient is -A merican, then multiply theresult by 1.210. Globulin 1.3 - 3.2 gm/dL Normal No February 04 [Mass/vol informati 2016 9:50 ume] in on in PM Serum source data Glucose 74 - 106 mg/dL High No February 04 [Mass/vol informati 2016 9:50 ume] in on in PM Serum or source Plasma data Potassium 3.5 - 5.1 mmoL/L Normal No February 04 informati 2016 9:50 [Moles/vo on in PM lume] in source Serum or data Plasma Sodium 136 - 145 mmoL/L Normal No February 04 [Moles/vo informati 2016 9:50 lume] in on in PM Serum or source Plasma data Aspartate 15 - 37 U/L Low No February 04 informati 2016 9:50 aminotran on in PM sferase source [Enzymati data c activity/ volume] in Serum or Plasma Alanine 12 - 78 U/L Normal No February 04 aminotran informati 2016 9:50 sferase on in PM [Enzymati source c data activity/ volume] in Serum or Plasma Protein 6.4 - 8.2 gm/dL Low No February 04 [Mass/vol informati 2016 9:50 ume] in on in PM Serum or source Plasma data Lipase [Enzymatic activity/volume] in Serum or Plasma Observa Value Referen Units Interpr Notes Date tion ce etation Range Lipase 73 - 393 U/L Normal No February 04 [Enzymati informati 2016 9:50 c on in PM activity/ source volume] data in Serum or Plasma CBC W Auto Differential panel in Blood Observa Value Referen Units Interpr Notes Date tion ce etation Range Basophils 0 - 0.2 K/MM3 Normal No February 04 inform2016 9:50 [#/volume on in PM ] in source Blood by data Automated count Basophils 0.1 - 2.0 % Normal No February 04 / inform2016 9:50 leukocyte on in PM s in source Blood by data Automated count Eosinophi 0.0 - 0.4 K/mm3 Normal No February 04 ls informati 2016 9:50 [#/volume on in PM ] in source Blood by data Automated count Eosinophi 0.1 - % Normal No February 04 ls/100 12.0 informati 2016 9:50 leukocyte on in PM s in source Blood by data Automated count Granulocy 1.8 - 7.8 K/mm3 Normal No February 04 gillian informati 2016 9:50 [#/volume on in PM ] in source Blood by data Automated count Granulocy 37.0 - % Normal No February 04 gillian/100 80.0 informati 2016 9:50 leukocyte on in PM s in source Blood by data Automated count Hematocri 37.0 - % Normal No February 04 t [Volume 47.0 informati 2016 9:50 on in PM Fraction] source of Blood data Hemoglobi 12.2 - g/dL No February 04 n 16.2 informati informati 2016 9:50 [Mass/vol on in on in PM ume] in source source Blood data data Lymphocyt 0.7 - 4.5 K/mm3 Normal No February 04 es informati 2016 9:50 [#/volume on in PM ] in source Unspecifi data ed specimen by Automated count Lymphocyt 10 - 50.0 % Normal No February 04 es informati 2016 9:50 [#/volume on in PM ] in source Unspecifi data ed specimen by Automated count Erythrocy 27 - 31.2 pg High No February 04 te mean informati 2016 9:50 corpuscul on in PM ar source hemoglobi data n [Entitic mass] Erythrocy 31.8 - g/dl Normal No February 04 te mean 35.4 informati 2016 9:50 corpuscul on in PM ar source hemoglobi data n concentra tion [Mass/vol ume] by Automated count Erythrocy 82.2 - fl Normal No February 04 te mean 97.8 informati 2016 9:50 corpuscul on in PM ar volume source [Entitic data volume] by Automated count Monocytes 0.1 - 1.0 K/mm3 Normal No February 042016 9:50 [#/volume on in PM ] in source Blood by data Automated count Monocytes 1.7 - 9.3 % Normal No February 04 /100 informati 2016 9:50 leukocyte on in PM s in source Blood by data Automated count Platelet 7.4 - fl Low No February 04 mean 10.4 informati 2016 9:50 volume on in PM [Entitic source volume] data in Blood by Automated count Platelets 142 - 424 K/mm3 Normal No February 04 informati 2016 9:50 [#/volume on in PM ] in source Blood data Erythrocy 4.2 - 5.4 M/mm3 Low No February 04 gillian ati 2016 9:50 [#/volume on in PM ] in source Amniotic data fluid Erythrocy 11.5 - % Normal February 04 te 17.5 ati 2016 9:50 distribut on in PM ion width source [Entitic data volume] by Automated count Leukocyte 4.8 - K/MM3 Normal No February 04 s 10.8 ati 2016 9:50 [#/volume on in PM ] in source Blood data Urinalysis dipstick W Reflex Microscopic panel in Urine Observa Value Referen Units Interpr Notes Date tion ce etation Range Appeara CLEAR CLEAR No No No February 04 nce of informa informa informa 2016 Urine tion in tion in tion in 9:35 PM source source source data data data Bacteri 1+ O No No No February 04 a informa informa informa 2016 [Presen tion in tion in tion in 9:35 PM ce] in source source source Urine data data data sedimen t by Light microsc opy Bilirub NEGATIV NEG No No No February 04 in E informa informa informa 2016 [Presen tion in tion in tion in 9:35 PM ce] in source source source Urine data data data by Test strip Erythro NEGATIV NEG No No No February 04 cytes E informa informa informa 2016 [Presen tion in tion in tion in 9:35 PM ce] in source source source Urine data data data Color YELLOW YELLOW No No No February 04 of informa informa informa 2016 Urine tion in tion in tion in 9:35 PM source source source data data data Glucose NEG No No No February 04 [Mass/vol informati informati informati 2016 9:35 ume] in on in on in on in PM Urine by source source source Test data data data strip Ketones NEGATIV NEG mg/dL No No February 04 E informa informa 2016 [Presen tion in tion in 9:35 PM ce] in source source Urine data data by Automat ed test strip Mucus 2+ NEG No Abnorma No February 04 [Presen informa l informa 2016 ce] in tion in tion in 9:35 PM Urine source source sedimen data data t by Light microsc opy Nitrite NEGATIV NEG No No No February 04 E informa informa informa 2016 [Presen tion in tion in tion in 9:35 PM ce] in source source source Urine data data data by Test strip pH of 5.0 - 8.5 No Normal No February 04 Urine informati informati 2016 9:35 on in on in PM source source data data Protein NEG mg/dL No No February 04 [Mass/vol informati informati 2016 9:35 ume] in on in on in PM Urine by source source Automated data data test strip Erythro 5-10 0 rbc/hpf No No February 04 cytes informa informa 2016 [Presen tion in tion in 9:35 PM ce] in source source Urine data data sedimen t by Light microsc opy Specific 1.005 - No Normal No February 04 gravity 1.030 informati informati 2016 9:35 of Urine on in on in PM source source data data Epithel 10-20 0 - 5 #/hpf No No February 04 ial informa informa 2016 cells.s tion in tion in 9:35 PM quamous source source data data [Presen ce] in Urine sedimen t by Microsc opy high power field Trichom 1+ NONE No No No February 04 onas sp informa informa informa 2017 tion in tion in tion in 9:35 PM [Presen source source source ce] in data data data Urine by Light microsc opy Urobili 1.0 NEG E.U./dL No No February 04 nogen informa informa 2016 [Presen tion in tion in 9:35 PM ce] in source source Urine data data by Test strip Leukocy [5 O wbc/hpf No No February 04 gillian wbc/hpf informa informa 2016 [#/volu ; 10 tion in tion in 9:35 PM me] in wbc/hpf source source Urine ] data data Urinalysis dipstick W Reflex Microscopic panel in Urine Observa Value Referen Units Interpr Notes Date tion ce etation Range Appeara CLEAR CLEAR No No No February 04 nce of informa informa informa 2016 Urine tion in tion in tion in 9:35 PM source source source data data data Bilirub NEGATIV NEG No No No February 04 in E informa informa informa 2016 [Presen tion in tion in tion in 9:35 PM ce] in source source source Urine data data data by Test strip Erythro NEGATIV NEG No No No February 04 cytes E informa informa informa 2016 [Presen tion in tion in tion in 9:35 PM ce] in source source source Urine data data data Color YELLOW YELLOW No No No February 04 of informa informa informa 2016 Urine tion in tion in tion in 9:35 PM source source source data data data Glucose NEG No No No February 04 [Mass/vol informati informati informati 2016 9:35 ume] in on in on in on in PM Urine by source source source Test data data data strip Ketones NEGATIV NEG mg/dL No No February 04 E informa informa 2016 [Presen tion in tion in 9:35 PM ce] in source source Urine data data by Automat ed test strip Mucus 2+ NEG No Abnorma No February 04 [Presen informa l informa 2016 ce] in tion in tion in 9:35 PM Urine source source sedimen data data t by Light microsc opy Nitrite NEGATIV NEG No No No February 04 E informa informa informa 2016 [Presen tion in tion in tion in 9:35 PM ce] in source source source Urine data data data by Test strip pH of 5.0 - 8.5 No Normal No February 04 Urine informati informati 2016 9:35 on in on in PM source source data data Protein NEG mg/dL No No February 04 [Mass/vol informati informati 2017 9:35 ume] in on in on in PM Urine by source source Automated data data test strip Specific 1.005 - No Normal No February 04 gravity 1.030 informati informati 2016 9:35 of Urine on in on in PM source source data data Urobili 1.0 NEG E.U./dL No No February 04 nogen informa informa 2016 [Presen tion in tion in 9:35 PM ce] in source source Urine data data by Test strip Choriogonadotropin.beta subunit [Units] in 24 hour Urine Observa Value Referen Units Interpr Notes Date tion ce etation Range Choriogon NEG No No No February 04 adotropin informati informati informati 2016 9:35 .beta on in on in on in PM subunit source source source [Units] data data data in 24 hour Urine
--- OUTSIDE RECORDS SUMMARY | 2017-04-07 15:41 | External Medical Summary Rpt ---
Demographics Preferred Language Persian Marital Status Unknown Yarsanism Affiliation Unknown Race Unknown Ethnic Group Unknown Author Author , JESUS LEE Address Unknown Phone Immunization Unable to retrieve immunization data due to connection failure with Immunization Registry. Please try again later.
--- OUTSIDE RECORDS SUMMARY | 2017-04-07 15:41 | External Medical Summary Rpt ---
[...] Notes Date tion ce etation Range Choriog 72847.3 No mIU/ML No NON-PRE February 10 onadotr [...] Notes Date tion ce etation Range Choriog 96385.5 No mIU/ML No NON-PRE February 04 onadotr [...]
[2017-04-07] MEDS ORDERED: ALBUTEROL-200 PUFFS/ IH (16:02)
[2017-04-07] MEDS ORDERED: AMOXICILLIN500 M2 PO (16:02)
--- NOTE | 2017-04-07 16:03 | Emergency Room Report ---
History of Present Illness Time Seen by [id number] Presenting Problem in Triage Pt arrived:Walked Presenting Problem:COLD SYMPTONS. 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 N Clinical Suspician of Infection? N Mental Status: 1 - Regular (Normal Baseline) Sepsis Risk:Low Sepsis Risk Have you (or family members/close friends) recently traveled outside the [place]? N If Yes, where/when: Have you had exposure to infectious disease within the past month? TB? Other? Specify: Source patient, RN notes reviewed, RN/MD Exam Limitations no limitations Comment This is a 22-year-old female patient, 7 months , here with congestion and nonproductive cough for the past 2 weeks. She has been prescribed Claritin, with incomplete control of her symptoms. She is still smoking half a pack of cigarettes a day, despite being . Patient has any fever or productive cough. ALLERGIES Coded Allergies: adhesive tape (04/07/17) History Medical History General CAD? No Angina: No DE: No Hypertension? No Hyperlipidemia? No CHF? No DVT? No PE? No COPD? No Asthma? Yes Anemia? No GERD? No Gastric ulcers? No GI Bleed? No Hernia? No Thyroid Problems? Yes Hypothyroidism? No CVA? No Seizures? Yes Diabetes? No Insulin Dependent: No Insulin Pump: No Home FSBS? No Renal Insuffiency? No End Stage Renal Disease? No UTI? Yes Stones? Yes BPH? No GB Disease: Yes Nephritic Syndrome? No Asplenia? No Hepatitis? No Sickle Cell Disease? No Arthritis? No Migraines? Yes Cataracts? No Glaucoma? No MRSA? No HIV? No TB? No Anxiety? Yes Depression? Yes Cancer? No More? 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 Respiratory cough Physical Exam Vital Signs Vital Signs Date Time Temp Pulse Resp B/P Pulse O2 O2 Flow FiO2 Ox Delivery Rate 04/07 1607 98.4 92 18 156/82 99 04/07 1525 98.4 92 18 99 General Appearance normal appearance, WD/WN, no apparent distress Ear, Nose, Throat hearing grossly normal, postnasal discharge, yellow Respiratory Status Yes: trachea midline, chest symmetrical, non tender chest. No: respiratory distress. Lung Sounds bilateral: normal breath sounds, lungs clear. 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 No Comment I advised patient to continue the current antihistamine, Claritin, will add amoxicillin as well. If not better patient instructed to follow-up with PCP or ObGyn per discharge. Departure Departure Time of Disposition 1600 Disposition DC Home or Self Care(routine) Clinical Impression Primary Impression: Acute bronchitis Qualifiers: Bronchitis organism: unspecified organism Qualified Code: J20.9 - Acute bronchitis, unspecified Secondary Impressions: RAD (reactive airway disease) Qualifiers: Asthma severity: unspecified severity Asthma complication type: uncomplicated Qualified Code: J45.909 - Unspecified asthma, uncomplicated Condition STABLE Referrals [facility]: 2 Days-Call Office if not better Patient Instructions DI for Acute Bronchitis Additional Instructions Take the medications prescribed as directed, follow up with PCP or your ObGyn if not better per instructions. Discharge Counseling Counseled pt/family regarding diagnosis, test results, medications/RX, home care, follow up needs Comment Take the medications prescribed as directed, follow up with PCP or your ObGyn if not better per instructions. Prescriptions Current Visit Scripts Albuterol (Albuterol-Hfa Inhaler) 1 PUFF IH QID #1 INH Ref 2 Amoxicillin (Amoxicillin 500MG Tab) 500 MG PO TID #30 TAB ED Critical Care Critical Care No at 1910
--- NOTE | 2017-04-07 16:03 | Emergency Room Report ---
History of Present Illness Time Seen by [id number] Presenting Problem in Triage Pt arrived:Walked Presenting Problem:COLD SYMPTONS. 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 N Clinical Suspician of Infection? N Mental Status: 1 - Regular (Normal Baseline) Sepsis Risk:Low Sepsis Risk Have you (or family members/close friends) recently traveled outside the [place]? N If Yes, where/when: Have you had exposure to infectious disease within the past month? TB? Other? Specify: Source patient, RN notes reviewed, RN/MD Exam Limitations no limitations Comment This is a 22-year-old female patient, 7 months , here with congestion and nonproductive cough for the past 2 weeks. She has been prescribed Claritin, with incomplete control of her symptoms. She is still smoking half a pack of cigarettes a day, despite being . Patient has any fever or productive cough. ALLERGIES Coded Allergies: adhesive tape (04/07/17) History Medical History General CAD? No Angina: No [place]: No Hypertension? No Hyperlipidemia? No CHF? No DVT? No PE? No COPD? No Asthma? Yes Anemia? No GERD? No Gastric ulcers? No GI Bleed? No Hernia? No Thyroid Problems? Yes Hypothyroidism? No CVA? No Seizures? Yes Diabetes? No Insulin Dependent: No Insulin Pump: No Home FSBS? No Renal Insuffiency? No End Stage Renal Disease? No UTI? Yes Stones? Yes BPH? No GB Disease: Yes Nephritic Syndrome? No Asplenia? No Hepatitis? No Sickle Cell Disease? No Arthritis? No Migraines? Yes Cataracts? No Glaucoma? No MRSA? No HIV? No TB? No Anxiety? Yes Depression? Yes Cancer? No More? 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 Respiratory cough Physical Exam Vital Signs Vital Signs Date Time Temp Pulse Resp B/P Pulse O2 O2 Flow FiO2 Ox Delivery Rate 04/07 1607 98.4 92 18 156/82 99 04/07 1525 98.4 92 18 99 General Appearance normal appearance, WD/WN, no apparent distress Ear, Nose, Throat hearing grossly normal, postnasal discharge, yellow Respiratory Status Yes: trachea midline, chest symmetrical, non tender chest. No: respiratory distress. Lung Sounds bilateral: normal breath sounds, lungs clear. 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 No Comment I advised patient to continue the current antihistamine, Claritin, will add amoxicillin as well. If not better patient instructed to follow-up with PCP or ObGyn per discharge. Departure Departure Time of Disposition 1600 Disposition DC Home or Self Care(routine) Clinical Impression Primary Impression: Acute bronchitis Qualifiers: Bronchitis organism: unspecified organism Qualified Code: J20.9 - Acute bronchitis, unspecified Secondary Impressions: RAD (reactive airway disease) Qualifiers: Asthma severity: unspecified severity Asthma complication type: uncomplicated Qualified Code: J45.909 - Unspecified asthma, uncomplicated Condition STABLE Referrals [facility]: 2 Days-Call Office if not better Patient Instructions DI for Acute Bronchitis Additional Instructions Take the medications prescribed as directed, follow up with PCP or your ObGyn if not better per instructions. Discharge Counseling Counseled pt/family regarding diagnosis, test results, medications/RX, home care, follow up needs Comment Take the medications prescribed as directed, follow up with PCP or your ObGyn if not better per instructions. Prescriptions Current Visit Scripts Albuterol (Albuterol-Hfa Inhaler) 1 PUFF IH QID #1 INH Ref 2 Amoxicillin (Amoxicillin 500MG Tab) 500 MG PO TID #30 TAB ED Critical Care Critical Care No at 1910
[2017-04-07 16:07] VITALS: BP 156/82
== END 2017-04-07 16:08 | disposition home or self-care (01) ==
LOC: ER 15:21
DX: O99.519 Diseases of the respiratory system complicating pregnancy, unspecified trimester (principal); J45.909 Unspecified asthma, uncomplicated; J20.9 Acute bronchitis, unspecified

== ENCOUNTER 2017-05-13 22:07 | Outpatient (CLI) | payer MEDICAID ==
[~2017-05-13 22:07] MED LIST changes: +ALBUTEROL-200 PUFFS/ IH
[2017-05-13 22:32] LABS: URINE BILIRUBIN - DIPSTICK NEGATIVE (NEG); URINE BLOOD NEGATIVE (NEG)
[2017-05-14] MEDS ORDERED: ZOFRAN4 MG PO (17:59)
[2017-05-14] MEDS ORDERED: PHENERGAN 2525 MG/ML PO (17:59)
== END 2017-05-13 23:56 | disposition home or self-care (01) ==
LOC: OBOUT 22:07 → OB 22:09 → OBOUT 23:56
PROVIDERS: Obstetrics & Gynecology
DX: O26.93 Pregnancy related conditions, unspecified, third trimester (principal); Z3A.34 34 weeks gestation of pregnancy; M54.5 Low back pain; R10.30 Lower abdominal pain, unspecified

== ENCOUNTER 2017-05-14 17:33 | Outpatient (CLI) | payer MEDICAID ==
[~2017-05-14] VITALS: Ht 167.6 cm; Wt 90.3 kg
[2017-05-14 17:55] VITALS: BP 114/65
[2017-05-14] MEDS ORDERED: ZOFRAN4 MG PO (17:59)
[2017-05-14] MEDS ORDERED: PHENERGAN 2525 MG/ML PO (17:59)
[2017-05-14 18:02] LABS: URINE BILIRUBIN - DIPSTICK NEGATIVE (NEG); URINE BLOOD NEGATIVE (NEG)
[2017-05-14 18:16] LABS: URINE SQUAMOUS CELLS OCC #/hpf (0-5)
[2017-05-14 18:34] LABS: AMPHETAMINES/METAMPHETAMINES NEGATIVE ng/mL (<1000)
== END 2017-05-14 20:20 ==
LOC: OBOUT 17:33 → OB 17:36 → OBOUT 20:20
PROVIDERS: Obstetrics & Gynecology
DX: O26.93 Pregnancy related conditions, unspecified, third trimester (principal); Z3A.34 34 weeks gestation of pregnancy; M54.5 Low back pain; R10.30 Lower abdominal pain, unspecified

== ENCOUNTER 2017-05-18 15:35 | Outpatient (CLI) | payer MEDICAID ==
[~2017-05-18] VITALS: Ht 167.6 cm; Wt 83.9 kg
[~2017-05-18 15:35] MED LIST changes: +PHENERGAN 2525 MG/ML PO; +ZOFRAN4 MG PO
[2017-05-18 15:50] VITALS: BP 135/80
== END 2017-05-18 16:03 | disposition hospice, home (50) ==
LOC: OBOUT 15:35 → OB 15:35 → OBOUT 16:03
DX: O26.93 Pregnancy related conditions, unspecified, third trimester (principal); Z3A.33 33 weeks gestation of pregnancy

== ENCOUNTER 2017-05-19 15:56 | Outpatient (CLI) | payer MEDICAID | END 2017-05-19 16:11 | disposition home or self-care (01) | LOC: OB 15:56 → OBOUT 15:56 | DX: O26.93 Pregnancy related conditions, unspecified, third trimester (principal); Z3A.33 33 weeks gestation of pregnancy ==

== ENCOUNTER 2017-05-27 16:14 | Outpatient (CLI) | payer MEDICAID ==
[~2017-05-27] VITALS: Ht 167.6 cm; Wt 87.5 kg
[2017-05-27 16:37] VITALS: BP 123/73
[2017-05-27] MEDS ORDERED: PRENATAL PLUS1 TA1 PO (16:42)
== END 2017-05-27 17:00 | disposition home or self-care (01) ==
LOC: OBOUT 16:14 → OB 16:14 → OBOUT 17:00
DX: O26.93 Pregnancy related conditions, unspecified, third trimester (principal); Z3A.34 34 weeks gestation of pregnancy; R11.10 Vomiting, unspecified

== ENCOUNTER 2017-05-27 16:58 | Emergency (ER) | payer MEDICAID ==
[~2017-05-27] VITALS: Ht 167.6 cm; Wt 87.5 kg
--- NOTE | 2017-05-27 17:41 | Urgent Treatment Center Report ---
History of Present Issue Date/Time Seen by Provider 05/27/17 1715 Visit Reason Pt arrived:Walked Presenting Problem:SORE THROAT TODAY, VOMTIED TODAY AND HAS BEEN VOMITING DURING THE , OT IS 34 WEEKS . Location if Accident: Onset of symptoms date/time:/ or onset unknown for:MEDICAL HX UNKNOWN Have you (or family members/close friends) recently traveled outside the [place]? N If Yes, where/when: Have you had exposure to infectious disease within the past month? TB? Other? Specify: Patient state that she has had sore throat that started this morning. States that she has also been vomiting today but has vomited on and off the whole . States that she is 34 weeks OB and was sent down to be checked to make sure that she does not have strep throat. Was just seen on the mother and baby floor and recommended that due to the fact that she was so close to her due date that she come down and get checked for strep throat ALLERGIES Coded Allergies: adhesive tape (-- 05/13/17) Home Medications Reported Medications MULTIVIT-MIN W/FE-FA ( Multivitamin Tablet) 1 TAB PO DAILY History Medical History General CAD? No Angina: No [place]: No Hypertension? No Hyperlipidemia? No CHF? No DVT? No PE? No COPD? No Asthma? Yes Anemia? No GERD? No Gastric ulcers? No GI Bleed? No Hernia? No Thyroid Problems? Yes Hypothyroidism? No CVA? No Seizures? Yes Diabetes? No Insulin Dependent: No Insulin Pump: No Home FSBS? No Renal Insuffiency? No UTI? Yes Stones? Yes BPH? No GB Disease: Yes Nephritic Syndrome? No Asplenia? No Hepatitis? No Sickle Cell Disease? No Arthritis? No Migraines? Yes Cataracts? No Glaucoma? No MRSA? No HIV? No TB? No Anxiety? Yes Depression? Yes Cancer? No More? No Immunization HX DT/Tetanus 1-4 Years Ago Flu 2015-16FSN Pneumonia Refuses Surgical Hx Previous Surgery?Y GALLBLADDER BIOPSY RIGHT BREAST Social History Smoking Hx Smoker: Current Every Day Smoker Tobacco: Yes Type Cigarettes Packs/day < 1 Pack Alcohol Alcohol: No Review of Systems All Other Systems Reviewed and Negative ENT throat pain, throat swelling. Physical Exam Vital Signs Vital Signs Date Time Temp Pulse Resp B/P Pulse O2 O2 Flow FiO2 Ox Delivery Rate 05/27 1705 98.7 121 18 130/81 96 General Appearance normal appearance, WD/WN, no apparent distress Ear, Nose, Throat Throat red, irritated. drainage noted Respiratory Status Yes: trachea midline, chest symmetrical, non tender chest. No: respiratory distress. 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 No Results/Orders Laboratory Tests 05/27/17 1710: Group A Strep Screen NOT DETECTED Orders Procedure Date/time Status [facility] STREP SCREEN 05/27 171 Complete Departure Departure Time of Disposition 1735 Disposition DC Home or Self Care(routine) Clinical Impression Primary Impression: Acute pharyngitis Qualifiers: Pharyngitis/tonsillitis etiology: unspecified etiology Qualified Code: J02.9 - Acute pharyngitis, unspecified Condition STABLE Patient Instructions Sore Throat Additional Instructions * Monitor Temp. Tylenol and/or Ibuprofen as needed. ER if fever is no less than 101 despite alternating Tylenol and Ibuprofen * Encourage fluids, water, Gatorade, powerade, pedialyte if /toddler/or child * Warm salt water gargles for throat irritation *Warm fluids *Sore throat lozenges *Sleep elevated *humidifier or vaporizer Follow up IMMEDIATELY for new or worsening of symptoms OR no noticeable improvement over the next 48-72 hours. 911 immediately for any life threatening symptoms such as chest pain or difficulty breathing Discharge Counseling Counseled pt/family regarding diagnosis, test results, home care, follow up needs at 1740
[2017-05-27 17:43] VITALS: BP 130/81
== END 2017-05-27 17:45 | disposition home or self-care (01) ==
LOC: UTC 16:58
DX: O26.893 Other specified pregnancy related conditions, third trimester (principal); J02.9 Acute pharyngitis, unspecified; O99.513 Diseases of the respiratory system complicating pregnancy, third trimester; J45.909 Unspecified asthma, uncomplicated; F17.210 Nicotine dependence, cigarettes, uncomplicated; Z3A.34 34 weeks gestation of pregnancy

== ENCOUNTER → 2017-06-07 | Outpatient (CLI) | payer MEDICAID | LOC: LAB 17:48 | DX: Z34.80 Encounter for supervision of other normal pregnancy, unspecified trimester (principal) ==

== ENCOUNTER 2017-06-26 18:07 | Emergency (ER) | payer MEDICAID ==
[~2017-06-26] VITALS: Ht 170.2 cm; Wt 86.2 kg
[2017-06-26] MEDS ORDERED: ACETAMIN W/CODE1 TAB PO (18:22)
--- NOTE | 2017-06-26 18:25 | Emergency Room Report ---
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 Clinical Suspician of Infection? Mental Status: Sepsis Risk: Have you (or family members/close friends) recently traveled outside the [place]? If Yes, where/when: Have you had exposure to infectious disease within the past month? TB? Other? Specify: Source patient, RN notes reviewed Exam Limitations no limitations Comment Pt reports she had a baby on 06/24 by Vaginal delivery and the baby was taken from her by the [facility]. She comes to the ED now because she has not had a BM since before the baby was born and she is having lower abd pain and swelling in feet and legs. She is not SOA and no fever and no trouble with urination. Also no vomiting Cardiac Chest Pain Chest pain indicative of cardiac No ALLERGIES Coded Allergies: adhesive tape (-- 05/13/17) Home Medications Reported Medications ACETAMINOPHEN WITH CODEINE (Acetaminophen-Cod #3 Tablet) 1 TAB PO Q6HP PRN PAIN #12 History Medical History General CAD? No Angina: No [place]: No Hypertension? No Hyperlipidemia? No CHF? No DVT? No PE? No COPD? No Asthma? Yes Anemia? No GERD? No Gastric ulcers? No GI Bleed? No Hernia? No Thyroid Problems? Yes Hypothyroidism? No CVA? No Seizures? Yes Diabetes? No Insulin Dependent: No Insulin Pump: No Home FSBS? No Renal Insuffiency? No End Stage Renal Disease? No UTI? Yes Stones? Yes BPH? No GB Disease: Yes Nephritic Syndrome? No Asplenia? No Hepatitis? No Sickle Cell Disease? No Arthritis? No Migraines? Yes Cataracts? No Glaucoma? No MRSA? No HIV? No TB? No Anxiety? Yes Depression? Yes Cancer? No More? No Immunization Hx DT/Tetanus 1-4 Years Ago Flu Refused Pneumonia Refuses Surgical Hx Previous Surgery?Y GALLBLADDER BIOPSY RIGHT BREAST Social History Smoking Hx Packs/day 1 1/2 - 2 Packs Alcohol Alcohol: No Review of Systems All Other Systems Reviewed and Negative Constitutional see HPI Gastrointestinal see HPI Genitourinary see HPI. Physical Exam Vital Signs Vital Signs Date Time Temp Pulse Resp B/P Pulse O2 O2 Flow FiO2 Ox Delivery Rate 06/26 1943 82 18 131/83 100 06/26 1817 98.4 85 18 154/95 95 General Appearance normal appearance, no apparent distress, 1+ pretibial edema bilaterally Respiratory Status No: respiratory distress. Lung Sounds bilateral: normal breath sounds. 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 No Results/Orders Laboratory Tests 06/26/17 1845: Sodium 136, Potassium 4.2, Chloride 103, Carbon Dioxide 27, BUN 8, Creatinine 0.5 L, Estimated Creat Clear 240 H, Estimated GFR (MDRD) 154, Glucose 97, Calcium 8.4 L, Total Bilirubin 0.1 L, AST 21, ALT 0 L, Alkaline Phosphatase 446 H, Total Protein 6.1 L, Albumin 2.6 L, Globulin 3.5 H, Albumin/Globulin Ratio 0.7 L, WBC 10.8, RBC 3.70 L, Hgb 11.4 L, Hct 34.4 L, MCV 92.7, RDW 13.9, Plt Count 178, MPV 10.7 H, Gran % 75.1, Gran # 8.1 H, Lymphocytes % 19.7 , Monocytes % 2.9, Eosinophils % 1.9, Basophils % 0.4, Lymphocytes # 2.1, Monocytes # 0.3, Eosinophils # 0.2, Basophils # 0.0, PUBS MCHC 33.2, MCH 30.8 06/26/17 1835: Opiates Screen POSITIVE H, Urine Methadone Screen NEGATIVE, Barbiturates NEGATIVE, Phencyclidine Screen NEGATIVE, Amphetamines Screen NEGATIVE, Benzodiazepines Screen NEGATIVE, Cocaine Screen NEGATIVE, Marijuana (THC) Screen NEGATIVE, Urine Color DK YELLOW, Urine Appearance CLOUDY, Urine pH 7.5, Ur Specific [place] 1.010, Urine Protein TRACE H, Urine Ketones NEGATIVE, Urine Blood 3+ H, Urine Nitrate NEGATIVE, Urine Bilirubin NEGATIVE, Urine Urobilinogen 1.0, Ur Leukocyte Esterase 1+ H, Urine RBC 20-50, Urine WBC 5-10, Ur Squamous Epith Cells 10-20, Urine Bacteria 2+, Urine Glucose NEGATIVE Current Medication Orders Sig/Manju Start time Last Medication Dose Route Stop Time Status Admin Sodium Chloride 10 ML PRN PRN 06/26 1830 AC IV 06/27 182 Sodium Chloride 1,000 ML .Q4H 06/26 183 DC IV 06/26 2229 Sodium Chloride 10 ML PRN PRN 06/26 183 DC IV 06/27 182 Orders Procedure Date/time Status CULTURE, URINE 06/26 1835 Active KUB (SINGLE VIEW) 06/26 1826 Active IV SALINE LOCK 06/26 1826 Active URINALYSIS/COMPLETE 06/26 1826 Complete DRUG ABUSE SCREEN (10) 06/26 1826 Complete CBC WITH AUTO DIFF 06/26 1826 Complete CHEM 12 PROFILE 06/26 1826 Complete XRAY/CT/US XRAY/CT/US XRAY KUB XR interpretation by reviewed by me Xray Results constipated but no fecal impaction Departure Departure Time of Disposition 1945 Disposition DC Home or Self Care(routine) Clinical Impression Primary Impression: Constipation by delayed colonic transit Condition STABLE Patient Instructions Constipation, Constipation (Alternative Therapy), DI for Constipation, DIET-CONSTIPATION NUTRI. HMH, Increased Dietary Fiber May Improve Constipation Conditions With Pelvic Anjum Additional Instructions Drink a lot of fluids and take Magnesium Citrate as directed, 2 ounces every 4 hours while awake until stool is loose Discharge Counseling Counseled pt/family regarding diagnosis, test results, medications/RX, home care, follow up needs Prescriptions Current Visit Scripts Magnesium Citrate (Citrate Of Magnesia) 60 ML PO Q4HP PRN constipation #300 ML Ref 1 ED Critical Care Critical Care No If Critical Care minutes are documented, the time involved in the performance of seperately reportable procedures was not counted toward critical care time documented. I directly delivered medical care to this critically ill and/or injured patient. Timely evaluation and treatment was necessary to address the significant organ system(s) dysfunction present in this patient. at 1949
[2017-06-26 18:42] LABS: URINE BILIRUBIN - DIPSTICK NEGATIVE (NEG); URINE BLOOD 3+ (NEG)
[2017-06-26 18:44] LABS: LYMPH # 2.1 K/mm3 (0.7-4.5); LYMPH % 19.7 % (10-50.0)
[2017-06-26 18:45] LABS: HEMOGLOBIN 11.4 g/dL (12.2-16.2)
[2017-06-26 19:10] LABS: AMPHETAMINES/METAMPHETAMINES NEGATIVE ng/mL (<1000)
[2017-06-26] MEDS ORDERED: MAGNESIUM1.75 GM/30 PO (19:49)
[2017-06-26 20:10] VITALS: BP 131/83
--- OUTSIDE RECORDS SUMMARY | 2017-06-27 05:12 | External Medical Summary Rpt | Continuity of Care Document ---
Author Author Organization Address Unknown Phone Unavailable Care Team Providers Care Metal Burnisher Name Role Phone , Unavailable Unavailable EMS Current Medications Section EMS Allergies and Adverse Reactions EMS Past Medical History Medications Administered Section EMS Procedures Performed EMS Vital Signs EMS Patient Care Report Narrative EC-[address] for 22 yo female water has broken she thinks she is in labor. Upon arrival pt standing in driveway of residence with her passing a cigarette between each other. Pt advised this is her fourth her water has broken she is 38 weeks and 3 days along and she has already spoken to the hospital about her coming. Pt said she has been taking her pre- vitamins regularly since she found out she was . She also advised she is having slight pressure in her lower abdomen but no pain anywhere. She has had her gall bladder removed and also a spot on her breast that doctors advised her was benign. ALS assessment performed by Jo Ann Jeter- Car Scrubber she was deemed to be BLS. Pt walked to ambulance assisted inside and onto stretcher. All straps and rails on stretcher used during transport. Pt vitals were as follows: BP 131/90 HR 122 RR 14 O2 SAT 100%. Pt did not seem to be in any discomfort and was calm en route to [facility]. At destination pt moved into facility via stretcher and taken straight upstairs to Labor and Delivery room. Pt walked from stretcher to bed without assistance. Report given pt care transferred to RN at facility. EC-1 clear from this call Tin Welch EMT-B
--- OUTSIDE RECORDS SUMMARY | 2017-06-27 05:12 | External Medical Summary Rpt | Continuity of Care Document ---
Author Author Organization Address Unknown Phone Unavailable Care Team Providers Care Cell Plasterer Name Role Phone , Unavailable Unavailable EMS [...] ALS assessment performed by Jo Ann Jeter- Machine Printer Hose she was deemed to be BLS. Pt walked to ambulance assisted inside and onto stretcher. All straps and rails on stretcher used during transport. Pt vitals were as follows: BP 131/90 HR 122 RR 14 O2 SAT 100%. Pt did not seem to be in any discomfort and was calm en route to [facility]. At destination pt moved into facility via stretcher and taken straight upstairs to Labor and Delivery room. Pt walked from stretcher to bed without assistance. Report given pt care transferred to RN at facility. EC-1 clear from this call Tin Welch EMT-B
--- OUTSIDE RECORDS SUMMARY | 2017-06-27 05:17 | External Medical Summary Rpt | CCD ---
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 [facility] C 7 MEDICAL EXAMINATI IMAGING ON KNEE 3 ASS VIEWS IAADIADOO 01110 [facility] 7 [facility] INFLUENZA INC INC UNCLASSIF J3490 TOM [facility] IED DRUGS 7 [facility] INC INC ANES 32952 COMM[facility] FEEBACK INTEG 7 ANESTH EXTREMITI OF THE ES ANT BLUE TRUNK & [place]INEUM N[place] L[place]EL V [address] [facility], [place]O SURG [facility] PATHOLOGY GROSS&MI ROSCOPIC EXAM BIOPSY 59700 [facility] BREAST 7 PHYSICIAN OPEN S GROUP INCISIONA L PERQ 83249 [place] BREAST 7 MEDICAL LOC IMAGING DEVICE ASS PLACEMT 1ST LESIO US IMAG RADIOLOGI 68852 TOM SANTOS RADHA 7 [facility] EXAMINATI INC INC ON SURGICAL SPECIMEN US BREAST 91520 TOM SANTOS UNI REAL 7 [facility] TIME INC INC WITH IMAGE COMPLETE GONADOTRO 97018 TOM SANTOS PIN 7 [facility] CHORIONIC INC INC QUALITATI VE BASIC 00024 TOM SANTOS METABOLIC 7 [facility] PANEL INC INC CALCIUM TOTAL COLLECTIO 47648 TOM SANTOS N VENOUS 7 [facility] BLOOD INC INC VENIPUNCT URE US SOFT 14648 TOM SANTOS TISSUE 7 [facility] HEAD & INC INC [place] [address] [place] SURG 6 SY & GREG PATHOLOGY DUBILIER GROSS&MI ROSCOPIC EXAM US BREAST 24548 TOM SANTOS UNI REAL 6 [facility] TIME INC INC WITH IMAGE COMPLETE BX BREAST 00908 TOM SANTOS W/DEVICE 6 [facility] 1ST INC INC LESION ULTRASOUN D GUID PROBE/NEE C2618 TOM SANTOS DLE 6 [facility] CRYOABLAT INC INC ION RADEX 17507 [place] BEINE ELBOW 6 MEDICAL ANAND COMPLETE IMAGING MINIMUM 3 ASS VIEWS RADEX 96072 [place] AMAURIINE HUMERUS 6 MEDICAL ANAND MINIMUM 2 IMAGING VIEWS ASS RADEX 47354 [place] SCOTT FOREARM 2 6 MEDICAL ANAND VIEWS IMAGING ASS RADEX [address] [place] [address] [facility] SPINE 6 MEDICAL ANAND CERVICAL IMAGING 4 OR 5 ASS VIEWS RADEX 22082 [place] SCOTT SHOULDER 6 MEDICAL ANAND COMPLETE IMAGING MINIMUM 2 ASS VIEWS SHOULDER L3650 [facility] 6 TECHNOLOG TECHNOLOG FIG 8 IES INC IES INC ABDUCT RESTRAINE R PREFAB US BREAST 88479 [place] RUBIO ALL UNI REAL 6 MEDICAL TIME IMAGING WITH ASS IMAGE LIMITED US BREAST 34069 TOM SANTOS UNI REAL 6 [facility] TIME INC INC WITH IMAGE COMPLETE RADEX 27077 TOM SANTOS ESOPHAGUS 6 [place] [address] TOM SANTOS TRANSVAGI 6 [facility] NAL INC INC URNLS DIP 61602 [facility] 6 PHYSICIAN JOHN STICK/TAB S GROUP LET RGNT NON-AUT[place] W/[place] [address] [facility] ALL ABDOMEN & 6 MEDICAL PELVIS IMAGING W/[place] [address] TOM SANTOS FREE 6 [facility] [place] [address] TOM SANTOS THYROID 6 [facility] STIMULATI INC INC NG HORMONE TSH COLLECTIO 50987 TOM SANTOS N VENOUS 6 [facility] BLOOD INC INC VENIPUNCT URE MICROSOMA 71222 TOM SANTOS L 6 [facility] ANTIBODIE INC INC S EACH RADIOLOGI 72685 [facility] [place] SCALF C 6 RADIOLOGY EXAMINATI ON NECK SOFT TISSUE GROUND A0425 [facility] MILEAGE 6 AMBULANCE AMBULANCE PER SERVICE SERVICE STATUTE MILE AMBULANCE A0429 [facility] SERVICE 6 AMBULANCE AMBULANCE BLS SERVICE SERVICE EMERGENCY TRANSPORT US SOFT 32952 TOM SANTOS TISSUE 6 [facility] HEAD & INC INC NECK REAL TIME IMGE DOCM HEMOGLOBI 07272 Pravin GUERIN N 6 AIXA HEBERT PSC ANA ROSA A1C AMBULANCE A0429 [facility] SERVICE 6 AMBULANCE AMBULANCE BLS SERVICE SERVICE EMERGENCY TRANSPORT GROUND A0425 [facility] MILEAGE 6 AMBULANCE AMBULANCE PER SERVICE SERVICE STATUTE MILE RADEX 34970 TOM SANTOS HAND 6 [facility] MINIMUM 3 INC INC VIEWS RADEX 00349 [facility] ALL HAND 2 6 MEDICAL VIEWS IMAGING ASS URNLS DIP 24832 TOM SANTOS 6 [facility] STICK/TAB INC INC LET REAGENT AUTO MICROSCOP Y UNCLASSIF J3490 TOM SANTOS IED DRUGS 6 [facility] INC INC URINE 91681 TOM SANTOS 6 [facility] TEST INC INC VISUAL COLOR CMPRSN METHS ANKLE L4350 [facility] CONTROL 6 TECHNOLOG TECHNOLOG ORTHOSIS IES INC IES INC STIRRUP STYL RIGID PREFAB RADEX 78433 [place] LIN ANKLE 6 MEDICAL PRICE COMPLETE IMAGING MINIMUM 3 ASS VIEWS CRTCHS E0114 [facility] UNDARM 6 TECHNOLOG TECHNOLOG OTH THAN IES INC IES INC WOOD PAIR PAD TIP&HNDGR IP REMOVAL 41465 [facility] NON-BIODE 6 PHYSICIAN JOHN GRADABLE S GROUP DRUG DELIVERY IMPLANT URNLS DIP 61510 TOM SANTOS 6 [facility] STICK/TAB INC INC LET REAGENT AUTO MICROSCOP Y BLOOD 75299 TOM SANTOS COUNT 6 [facility] COMPLETE INC INC AUTO&[place] [address] TOM SANTOS INFUSION 6 [facility] THERAPY/P INC INC ROPHYLAXI S /DX 1ST TO 1 HR URINE 35565 TOM SANTOS 6 [facility] TEST INC INC VISUAL COLOR CMPRSN METHS UNCLASSIF J3490 TOM SANTOS IED DRUGS 6 [facility] INC INC COMPREHEN 19256 TOM SANTOS SIVE 6 [facility] METABOLIC INC INC PANEL UNCLASSIF J3490 TOM SANTOS IED DRUGS 6 [facility] INC INC AMB A0427 [facility] SERVICE 6 AMBULANCE AMBULANCE ALS SERVICE SERVICE EMERGENCY TRANSPORT LEVEL 1 COLLECTIO 70551 TOM SANTOS N VENOUS 6 [facility] BLOOD INC INC VENIPUNCT URE GROUND A0425 [facility] 6 AMBULANCE AMBULANCE PER SERVICE SERVICE STATUTE MILE ECG 75133 TOM SANOTS ROUTINE 6 [facility] ECG INC INC W/LEAST 12 LDS TRCG ONLY W/O I&R CREATINE 60413 TOM SANTOS KINASE 6 [facility] [place] [address] TOM SANTOS TROPONIN 6 [facility] QUANTITAT INC INC SHAYNE ECG 63122 TOM [place] ROUTINE 6 [facility] W/LEAST P 12 LDS I&R ONLY CREATINE 70124 TOM SANTOS KINASE MB 6 [facility] [place] [address] TOM SANTOS AMYLASE 6 [facility] INC INC BLOOD 58810 TOM SANTOS COUNT 6 [facility] COMPLETE INC INC AUTO&AUTO DIFRNTL WBC GONADOTRO 97493 TOM SANTOS PIN 6 [facility] CHORIONIC INC INC QUALITATI VE URNLS DIP 27432 TOM SANTOS 6 [facility] STICK/TAB INC INC [place] [address] TOM SANTOS LIPASE 6 [place] [address] TOM SANTOS ABDOMEN & 6 [facility] PELVIS INC INC W/O CONTRAST MATERIAL COMPREHEN 74798 TOM SANTOS SIVE 6 [facility] METABOLIC INC INC PANEL AMBULANCE A0429 [facility] SERVICE 6 AMBULANCE AMBULANCE BLS SERVICE SERVICE EMERGENCY TRANSPORT GROUND A0425 [facility] MILEAGE 6 AMBULANCE AMBULANCE PER SERVICE SERVICE STATUTE MILE RADEX 72641 TOMTANNER CARTERON RIBS UNI 6 [facility] W/POSTERO INC INC ANT CH MINIMUM 3 VIEWS UNCLASSIF J3490 TOM SANTOS IED DRUGS 6 [facility] INC INC RADEX 80320 [place] LIN RIBS 6 MEDICAL PRICE UNILATERA IMAGING L 2 VIEWS ASS INSJ 72519 [facility] NON-BIODE 6 PHYSICIAN JOHN GRADABLE S GROUP DRUG DELIVERY IMPLANT ETONOGEST J7307 [facility] REL 6 PHYSICIAN JOHN CNTRACPT S GROUP IMPL SYS INCL IMPL & SPL CYTP C/V 43566 [facility] AUTO THIN 6 [facility] ER JR SHAISTA LYR PREPJ SCR MNL RESCR PHYS URINE 76402 [facility] 6 PHYSICIAN JOHN TEST S GROUP VISUAL COLOR CMPRSN METHS IADNA 01173 [facility] NEISSERIA 6 [facility] ER JR SHAISTA GONORRHOE AE AMPLIFIED PROBE TQ IADNA 21425 [facility], [facility] CHLAMYDIA 6 [facility] ER JR SHAISTA TRACHOMAT IS AMPLIFIED PROBE TQ IM ADM 76901 [facility] PRQ ID 6 [facility] SUBQ/IM HLTH DEPT HLTH DEPT NJXS 1 ANTHONY ANTHONY VACCINE RUBEN 33022 [facility] V[facility]INE 6 [facility] LIVE FOR HLTH DEPT HLTH DEPT SUBCUTANE ANTHONY ANTHONY OUS USE GROUND A0425 [facility] MILEAGE 6 AMBULANCE AMBULANCE PER SERVICE SERVICE STATUTE MILE AMBULANCE A0429 [facility] 6 AMBULANCE AMBULANCE BLS [place] [address] TOM SANTOS ABDOMEN & 6 [facility] PELVIS INC INC W/O CONTRAST MATERIAL BLOOD 76857 TOM SANTOS COUNT 6 [facility] COMPLETE INC INC AUTO&[place] [address] TOM SANTOS AMYLASE 6 [facility] INC INC URNLS DIP 55140 TOM SANTOS 6 [facility] STICK/TAB INC INC LET REAGENT AUTO MICROSCOP Y COMPREHEN 82285 TOM SANTOS SIVE 6 [facility] METABOLIC INC INC PANEL URINE 37101 TOM SANTOS 6 [facility] TEST INC INC VISUAL COLOR CMPRSN METHS URINE 58950 TOM SANTOS 6 [facility] TEST INC INC VISUAL COLOR CMPRSN METHS URNLS DIP 13533 TOM TOM 6 [facility] STICK/TAB INC INC LET REAGENT AUTO MICROSCOP Y H[facility] [address] [place] [facility] DIS[facility] 6 [place]OR DAY INTERNAL MANAGEMEN MED T 30 MIN/< SUBQ [address] [address] FLOR CARE PER INTERNAL DAY E/M MED NORMAL NEURAXIAL 607[address] [facility] LABOR 6 ANESTH SHE ANALG/ANE OF THE S PLND BLUE VAGINAL DELIVERY AMBULANCE A0429 [facility]ICE 6 AMBULANCE AMBULANCE BLS SERVICE SERVICE EMERGENCY TRANSPORT GROUND A0425 [facility]LE[facility] 6 AMBULANCE AMBULANCE PER SERVICE SERVICE STATUTE MILE VAGINAL 23546 [facility] DELIVERY 6 PHYSICIAN JOHN ONLY S GROUP W/POSTPAR DREAD CARE PARTICLE 68432 [facility]OM [facility] AGGLUTINA 6 [facility] TION INC INC SCREEN EACH ANTIBODY DRUG TST G0477 [facility] PRESUMP;C 6 PHYSICIAN JOHN PBL BEING S GROUP READ DC OPT OBV ONLY HANDLG&/O 57736 [facility] R CONVEY 6 PHYSICIAN JOHN OF SPEC S GROUP FOR TR OFFICE TO LAB 60360 MICHAEL GROSSMAN NONSTRESS 6 CHAUNCEY SHAW SONAM TEST AMB A0427 [facility] 6 AMBULANCE AMBULANCE ALS SERVICE SERVICE EMERGENCY TRANSPORT LEVEL 1 DRUG TST G0477 TOM SANTOS PRESUMP;C 6 [facility] PBL BEING INC INC READ DC OPT OBV ONLY CULTURE 92302 TOM SANTOS BACTERIAL 6 [facility] INC INC QUANTTATI VE COLONY COUNT URINE URNLS DIP 21791 TOM SANTOS 6 [facility] STICK/TAB INC INC LET REAGENT AUTO MICROSCOP Y EVAL C/V 43794 TOM SANTOS AMNIOTIC 6 [facility] FLUID INC INC PROTEIN QUAL EA SPECIMEN GROUND A0425 [facility] 6 AMBULANCE AMBULANCE [place] [address] TOM SANTOS INFUSION 6 [facility] THERAPY/P INC INC ROPHYLAXI S /DX 1ST TO 1 [place] [address] TOM SANTOS INFUSION 6 [facility] THERAPY INC INC PROPHYLAX IS/DX EA HOUR UNCLASSIF J3490 TOM SANTOS IED DRUGS 6 [facility] INC INC UNCLASSIF J3490 TOM SANTOS IED DRUGS 6 [facility] INC INC COMPREHEN 61739 TOM SANTOS SIVE 6 [facility] METABOLIC INC INC PANEL CULTURE 99628 TOM SANTOS BACTERIAL 6 [facility] INC INC QUANTTATI VE COLONY COUNT URINE URNLS DIP 76962 TOM SANTOS 6 [facility] STICK/TAB INC INC LET REAGENT AUTO MICROSCOP Y BLOOD 95574 TOM SANTOS COUNT 6 [facility] COMPLETE INC INC AUTO&AUTO DIFRNTL WBC URNLS DIP 01217 TOM SANTOS 6 [facility] STICK/TAB INC INC LET REAGENT AUTO MICROSCOP Y CULTURE 43041 TOM SANTOS BACTERIAL 6 [facility] INC INC QUANTTATI VE COLONY COUNT URINE DRUG TST G0477 TOM SANTOS PRESUMP;C 6 [facility] PBL BEING INC INC READ DC OPT OBV ONLY 75705 [facility] NONSTRESS 6 PHYSICIAN JOHN TEST S GROUP UNCLASSIF J3490 TOM SANTOS IED DRUGS 6 [facility] INC INC OBSTETRIC 05116 TOM SANTOS PANEL 6 [facility] INC INC COLLECTIO 79776 TOM SANTOS N VENOUS 6 [facility] BLOOD INC INC VENIPUNCT URE DRUG TST G0477 [facility] PRESUMP;C 6 PHYSICIAN JOHN PBL BEING S GROUP READ DC OPT OBV ONLY INF AGT G0432 TOM SANTOS AB DETECT 6 [facility] EIA TECH INC INC HIV-1&/HI V-2 SCR US PREG 76403 [facility] UTERUS 6 PHYSICIAN JOHN AFTER 1ST S GROUP TRIMEST GESTATION URNLS DIP 09368 TOM SANTOS 5 [facility] STICK/TAB INC INC LET REAGENT AUTO MICROSCOP Y BLOOD 16269 TOM SANTOS COUNT 5 [facility] COMPLETE INC INC AUTO&AUTO DIFRNTL WBC AMB A0427 [facility] 5 AMBULANCE AMBULANCE ALS SERVICE SERVICE EMERGENCY TRANSPORT LEVEL 1 COMPREHEN 50477 TOM SANTOS SIVE 5 [facility] METABOLIC INC INC PANEL GROUND A0425 [facility]LE[facility] 5 AMBULANCE AMBULANCE PER SERVICE SERVICE STATUTE MILE UNCLASSIF J3490 TOM SANTOS IED DRUGS 5 [facility] INC INC THER 65819 TOM SANTOS PROPH/DX 5 [facility] NJX EA INC INC SEQL IV PUSH SBST/DRUG FAC BASIC 98037 TOM SANTOS METABOLIC 5 [facility] PANEL INC INC CALCIUM TOTAL BLOOD 03811 TOM TOM COUNT 5 [facility] COMPLETE INC INC AUTO&AUTO DIFRNTL WBC URNLS DIP 05283 TOM SANTOS 5 [facility] STICK/TAB INC INC LET REAGENT AUTO MICROSCOP Y THER 00700 TOM SANTOS PROPH/DX 5 [facility] NJX IV INC INC PUSH SINGLE/1S T SBST/DRUG US PREG 50633 TRACIE BEINEKE UTERUS 5 MEDICAL ANAND REAL TIME IMAGING W/IMAGE ASS DCMTN TRANSVAG URNLS DIP 51069 TOM SANTOS 5 [facility] STICK/TAB INC INC LET REAGENT AUTO MICROSCOP Y CULTURE 82705 TOM SANTOS BACTERIAL 5 [facility] INC INC QUANTTATI VE COLONY COUNT URINE URINE 16088 TOM SANTOS 5 [facility] TEST INC INC VISUAL COLOR CMPRSN METHS URINE 47295 TOM SANTOS 5 [facility] TEST INC INC VISUAL COLOR CMPRSN METHS URNLS DIP 21921 TOM SANTOS 5 [facility] STICK/TAB INC INC LET REAGENT AUTO MICROSCOP Y Encounters Encounter Start End Date Code Location Performer Type Date HOSPITAL TOM - 7 7 [facility] TOM - 7 7 [facility] TOM - 7 7 [facility] - 7 [facility] - 7 7 [facility] OFFICE 67225 [facility] MOORE 7 7 PHYSICIAN T VISIT S GROUP 15 MINUTES OFFICE 63891 [facility] MOORE 7 7 PHYSICIAN T VISIT S GROUP 15 MINUTES OFFICE 48675 TOM MOORE 7 7 [facility] T VISIT 5 INC [facility] TOM - 7 7 [facility] OUTPATIEN INC T HOSPITAL [facility]OM - 7 7 [facility] OUTPATIEN INC T EMERGENCY 06042 LESLIE WHYTE DEPT 7 7 PHYSICIAN VISIT S, [facility] HIGH SEVERITY& THREAT FUNCJ EMERGENCY 13177 TOM 7 7 [facility] T VISIT LOW/MODER SEVERITY EMERGENCY 55260 LESLIE WHYTE [address] [facility] T VISIT HIGH/URGE NT SEVERITY OFFICE 74817 A C KILPELA OUTPATIEN 7 7 AIXA SHAW T VISIT PSC 15 MINUTES EMERGENCY 39184 LESLIE COLE [address] [facility] T VISIT HIGH/URGE NT SEVERITY OFFICE 55589 TOM MOORE 7 7 [facility] T VISIT 5 INC MINUTES HOSPITAL TOM - 7 7 [facility] OUTPATIEN INC T OFFICE 37903 A C KILPELA OUTPATIEN 7 7 AIX[facility] SHAW T VISIT PSC 15 MINUTES OFFICE 32452 A C KILPELA OUTPATIEN 7 7 AIXA SHAW T VISIT [facility] 15 MINUTES HOSPITAL TOM - 7 7 [facility] OUTPATIEN INC T HOSPITAL TOM - 7 7 [facility] OUTPATIEN INC HOSPITAL TOM - 7 7 [facility] OUTPATIEN INC T OFFICE 90551 [facility] CONSULTAT 7 7 PHYSICIAN ORESTES Urbina GROUP NEW/ESTAB PATIENT 30 MIN HOSPITAL TOM - 6 6 [facility]PATIEN [facility] T EMERGENCY 02938 LESLIE WHYTE 6 6 PHYSICIAN [facility] T VISIT MODERATE SEVERITY EMERGENCY 37902 LESLIE WHYTE 6 6 PHYSICIAN [facility] DEPARTMEN S, PLL[facility] T VISIT HIGH/URGE NT SEVERITY OFFICE 90167 [facility] OUTPATIEN 6 6 PHYSICIAN JOHN T VISIT S GROUP 15 MINUTES HOSPITAL TOM - 6 6 [facility] OUTPATIEN INC T OFFICE 60814 A C VALE OUTPATIEN 6 6 AIXA MACEDO T VISIT PSC 15 MINUTES OFFICE 00056 [facility] OUTPATIEN 6 6 PHYSICIAN JOHN T VISIT S GROUP 25 MINUTES EMERGENCY 03080 LESLIE COLE 6 6 PHYSICIAN U ANAND DEPARTMEN S, PLLC T VISIT HIGH/URGE NT SEVERITY OFFICE 14034 [facility] OUTPATIEN 6 6 PHYSICIAN KATHERINE Lakhani NEW 20 S GROUP MINUTES HOSPITAL TOM - 6 6 [facility] OUTPATIEN INC T EMERGENCY 38431 LESLIE WHYTE 6 6 PHYSICIAN MI DEPARTMEN S, PLLC T VISIT HIGH/URGE NT SEVERITY EMERGENCY 62894 LESLIE LEMUS 6 6 PHYSICIAN FAIZA [facility] S, PLLC T VISIT MODERATE SEVERITY EMERGENCY 39775 LESLIE COLE 6 6 PHYSICIAN U ANAND [facility] S, PLL[facility] T VISIT MODERATE SEVERITY OFFICE 01786 A Grace COLLAZO OUTPATIEN 6 6 AIXA MACEDO T VISIT PSC 15 MINUTES HOSPITAL TOM - 6 6 [facility] OUTPATI[facility] INC T OFFICE 57773 A C APOORVA OUTPATIEN 6 6 AIXA Lakhani NEW 45 PSC MINUTES EMERGENCY 81630 LESLIE WHYTE DEPT 6 6 PHYSICIAN MI VISIT S, PLLC HIGH SEVERITY& THREAT FUNCJ EMERGENCY 28595 LESLIE WHYTE 6 6 PHYSICIAN MI DEPARTMEN S, PLLC T VISIT MODERATE SEVERITY EMERGENCY 30928 TOM 6 6 [facility] DEPARTMEN INC T VISIT LIMITED/M INOR PROB HOSPITAL TOM - 6 6 [facility] OUTPATIEN [facility] T EMERGENCY 41010 LESLIE ISABELL 6 6 PH[facility]IC[facility] LOW/MODER SEVERITY EMERGENCY 48245 LESLIE ISABELL 6 6 PHYSICIAN [facility] T VISIT MODERATE SEVERITY HOSPITAL TOM - 6 6 [facility] OUTPATIEN INC T EMERGENCY 75640 TOM 6 6 [facility] LOW/MODER SEVERITY HOSPITAL TOM - 6 6 [facility] OUTPATIEN [facility] T EMERGENCY 73458 TOM 6 6 [facility] LOW/MODER SEVERITY EMERGENCY 20227 LESLIE ANDINOEY 6 6 PHYSICIAN [facility] S, [facility] T VISIT MODERATE SEVERITY EMERGENCY 95005 LESLIE ANDINOEY 6 6 PHYSICIAN [facility] S, [facility] VISIT MODERATE SEVERITY EMERGENCY 19607 [facility]OM 6 [facility] T VISIT LOW/MODER SEVERITY EMERGENCY 56865 LESLIE PETERUSCH 6 6 PHYSICIAN FAIZA [facility] S, [facility] MODERATE SEVERITY HOSPITAL TOM - 6 6 [facility] OUTPATIEN [facility] T EMERGENCY 31814 LESLIE GREENUSCYamilet 6 6 PHYSICIAN FAIZA BARKLEY S, [facility] HIGH/URGE NT SEVERITY HOSPITAL TOM - 6 6 [facility] T EMERGENCY 44647 LESLIE ANDINOEY 6 6 [facility]IC[facility] T VISIT HIGH/URGE NT SEVERITY EMERGENCY 93156 TOM 6 6 [facility] T VISIT MODERATE SEVERITY HOSPITAL TOM - 6 6 [facility] OUTPATIEN INC T EMERGENCY 67808 LESLIE WHYTE 6 6 PHYSICIAN [facility] S, [facility] T VISIT LOW/MODER SEVERITY [facility] 89718 [facility] 6 6 PHYSICIAN JOHN T VISIT S GROUP 15 MINUTES EMERGENCY 13100 LESLIE COLE DEPT 6 6 PHYSICIAN U ANAND VISIT S, [facility] HIGH SEVERITY& THREAT [facility] TOM - 6 6 [facility] OUTPATIEN INC T EMERGENCY 34353 TOM 6 6 [facility] LOW/MODER SEVERITY EMERGENCY 79945 LESLIE WHYTE 6 6 PHYSICIAN [facility] T VISIT HIGH/URGE NT SEVERITY HOSPITAL OTM - 6 6 [facility] OUTPATIEN INC T EMERGENCY 37781 TOM 6 6 [facility] LOW/MODER SEVERITY EMERGENCY 61343 LESLIE WHYTE 6 6 PHYSICIAN [facility] T VISIT MODERATE SEVERITY EMERGENCY 94720 TOM 6 6 [facility] V[facility] LIMITED/M [facility] TOM - 6 6 [facility] OUTPATIEN INC T EMERGENCY 17526 LESLIE WHYTE 6 6 PHYSICIAN [facility] T VISIT HIGH/URGE NT SEVERITY HOSPITAL TOM - 6 6 [facility] OUTPATIEN INC T EMERGENCY 84035 TOM 6 6 [facility]ISIT LIMITED/M INOR PROB EMERGENCY 44639 TOM 6 6 [facility] VISIT LOW/MODER SEVERITY HOSPITAL TOM - 6 6 [facility] OUTPATIEN INC T EMERGENCY 46422 LESLIE BLOCK, 6 6 PHYSICIAN [facility], [facility] T VISIT HIGH/URGE NT SEVERITY HOSPITAL TOM - 6 6 [facility] OUTPATIEN [facility] EMERGENCY 04132 LESLIE WHYTE 6 6 PHYSICIAN [facility] T VISIT MODERATE SEVERITY EMERGENCY 83383 TOM 6 6 [facility] T VISIT LOW/MODER SEVERITY HOSPITAL OTM - 6 6 [facility] TOM - 6 6 [facility] OUTPATIEN [facility] OFFICE [id number] [facility] 6 6 PHYSICIAN JOHN T VISIT S GROUP 15 MINUTES HOSPITAL TOM [facility] 6 6 [facility] TOM [facility] 6 6 [facility] EMERGENC[facility] 78236 LESLIE WHYTE 6 6 PHYSICIAN [facility] T VISIT HIGH/URGE NT SEVERITY EMERGENCY 96009 TOM 6 6 [facility] T VISIT MODERATE SEVERITY HOSPITAL TOM - 6 6 [facility]EN [facility] TOM [facility] 6 6 [facility] EMERG[facility] 64628 LESLIE WHYTE 5 5 PHYSICIAN [facility] T VISIT HIGH/URGE NT SEVERITY EMERGENCY 96946 TOM 5 5 [facility] T VISIT LOW/MODER SEVERITY HOSPITAL TOM - 5 5 [facility] OUTPATIEN [facility] EMERGENCY 59945 LESLIE MCGOWAN 5 5 PHYSICIAN [facility] T VISIT HIGH/URGE NT SEVERITY EMERGENCY [id number] TOM 5 5 [facility] MOD[facility]ATE [facility]ITY [facility] TOM - 5 5 [facility] OUTPATIEN [facility] EMERGENCY [id number] TOM 5 5 [facility] DEPARTMEN INC T VISIT LOW/MODER SEVERITY HOSPITAL TOM [facility] 5 5 [facility] OUTPAT[facility] INC T EMERGENCY [id number] LESLIE MENDEZ 5 5 [facility]YSICIAN DEPARTMEN S, [facility] T VISIT HIGH/URGE NT SEVERITY HOSPITAL TOM Guillory 5 5 [facility] OUTPATIEN INC T EMERGENCY [id number] TOM 5 5 [facility] LOW/MODER SEVERITY
--- OUTSIDE RECORDS SUMMARY | 2017-06-27 05:17 | External Medical Summary Rpt | CCD ---
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 02810 TOM MOORE 7 7 [facility] T VISIT 5 INC MINUTES HOSPITAL TOM - 7 7 [facility] OUTPATIEN INC T OFFICE 26806 A C KILPELA OUTPATIEN 7 7 AIXA SHAW T VISIT PSC 15 MINUTES OFFICE 79899 A C KILPELA OUTPATIEN 7 7 AIXA SHAW T VISIT [facility] 15 MINUTES HOSPITAL TOM - 7 7 [facility] OUTPATIEN INC T HOSPITAL TOM - 7 7 [facility] OUTPATIEN INC HOSPITAL TOM - 7 7 [facility] OUTPATIEN INC T OFFICE 54659 [facility] SAIGE CONSULTAT 7 7 PHYSICIAN ORESTES Urbina GROUP NEW/ESTAB PATIENT 30 MIN HOSPITAL TOM - 6 6 [facility] OUTPATIEN [facility] T EMERGENCY 38361 LESLIE WHYTE 6 6 PHYSICIAN [facility], [facility] T VISIT MODERATE SEVERITY EMERGENCY 75827 LESLIE WHYTE 6 6 PHYSICIAN [facility] T VISIT HIGH/URGE NT SEVERITY OFFICE 07217 [facility] NEWELL OUTPATIEN 6 6 PHYSICIAN JOHN T VISIT S GROUP 15 MINUTES HOSPITAL TOM - 6 6 [facility] OUTPATIEN INC T OFFICE 46326 A C VALE OUTPATIEN 6 6 AIXA MACEDO T VISIT PSC 15 MINUTES OFFICE 89200 [facility] REECE OUTPATIEN 6 6 PHYSICIAN JOHN T VISIT S GROUP 25 MINUTES EMERGENCY 82565 LESLIE COLE 6 6 PHYSICIAN U ANAND [facility]PART[facility] T VISIT HIGH/URGE NT SEVERITY OFFICE 29378 [facility] MATILDE OUTPATIEN 6 6 PHYSICIAN KATHERINE Lakhani NEW 20 S GROUP MINUTES HOSPITAL TOM - 6 6 [facility] OUTPATIEN INC T EMERGENCY 23400 LESLIE WHYTE 6 6 PHYSICIAN [facility] T VISIT HIGH/URGE NT SEVERITY EMERGENCY 63706 LESLIE LEMUS 6 6 PHYSICIAN FAIZA [facility] S, [facility] T VISIT MODERATE SEVERITY EMERGENCY 38116 LESLIE COLE 6 6 PHYSICIAN U ANAND [facility], [facility] T VISIT MODERATE SEVERITY OFFICE 75620 A Grace COLLAZO OUTPATIEN 6 6 AIXA MACEDO T VISIT PSC 15 MINUTES HOSPITAL TOM - 6 6 [facility] OUTPATIEN INC T OFFICE 62559 A C APOORVA OUTPATIEN 6 6 AIXA Lakhani NEW 45 PSC MINUTES EMERGENCY 49999 LESLIE WHYTE DEPT 6 6 PHYSICIAN [facility] VISIT S, PLLC HIGH SEVERITY& THREAT FUNCJ EMERGENCY 43817 LESLIE WHYTE 6 6 PHYSICIAN [facility] T VISIT MODERATE SEVERITY EMERGENCY 51170 TOM 6 6 [facility] DEPART[facility] INC T VISIT LIMITED/M [facility] TOM - 6 6 [facility] OUTPATIEN [facility] T EMERGENCY 25877 LESLIE ISABELL 6 6 [facility] VISIT LOW/MODER SEVERITY EMERGENCY 52796 LESLIE ISABELL 6 6 [facility] T VISIT MODERATE SEVERITY HOSPITAL TOM - 6 6 [facility] OUTPATIEN INC T EMERGENCY 64169 TOM 6 6 [facility] LOW/MODER SEVERITY HOSPITAL TOM - 6 6 [facility] OUTPATIEN [facility] T EMERGENCY 77638 TOM 6 6 [facility] LOW/MODER SEVERITY EMERGENCY 56149 LESLIE ANDINOEY [address] [facility], [facility] T VISIT MODERATE SEVERITY EMERGENCY 84371 LESLIE ANDINOEY [address] [facility], [facility] T VISIT MODERATE SEVERITY EMERGENCY 00453 TOM 6 6 [facility] T VISIT LOW/MODER SEVERITY EMERGENCY 31134 LESLIE PETERUSCH 6 6 PHYSICIAN FAIZA BARKLEY S, [facility] T VISIT MODERATE SEVERITY HOSPITAL TOM - 6 6 [facility] OUTPATIEN [facility] T EMERGENCY 93651 LESLIE GREENUSCYamilet 6 6 PHYSICIAN FAIZA BARKLEY S, [facility] T VISIT HIGH/URGE NT SEVERITY HOSPITAL TOM - 6 6 [facility] OUTPATIEN [facility] T EMERGENCY 11417 LESLIE ANDINOEY 6 6 [facility]IC[facility], [facility] T VISIT HIGH/URGE NT SEVERITY EMERGENCY 69403 TOM 6 6 [facility] T VISIT MODERATE SEVERITY HOSPITAL TOM - 6 6 [facility] OUTPATIEN INC T EMERGENCY 13769 LESLIE WHYTE [address] [facility], [facility] T VISIT LOW/MODER SEVERITY OFFICE [address] [facility] 6 6 PHYSICIAN JOHN T VISIT S GROUP 15 MINUTES EMERGENCY 21534 LESLIE COLE DEPT 6 6 PHYSICIAN U ANAND VISIT S, [facility] HIGH SEVERITY& THREAT FUNCJ HOSPITAL TOM - 6 6 [facility] OUTPATIEN INC T EMERGENCY 15096 TOM 6 6 [facility] T [facility]IS[facility] LOW/MODER SEVERITY EMERGENCY 52811 LESLIE WHYTE [address] [facility] T VISIT HIGH/URGE NT SEVERITY HOSPITAL TOM - 6 6 [facility] OUTPATIEN INC T EMERGENCY 11678 TOM 6 6 [facility] T VISIT LOW/MODER SEVERITY EMERGENCY 96010 LESLIE WHYTE [address] [facility] T VISIT MODERATE SEVERITY EMERGENCY 23705 TOM 6 6 [facility] T [facility]IS[facility] LIMITED/M [facility] TOM - 6 6 [facility] OUTPATIEN INC T EMERGENCY 20878 LESLIE WHYTE [address] [facility] T VISIT HIGH/URGE NT SEVERITY HOSPITAL TOM - 6 6 [facility] OUTPATIEN INC T EMERGENCY 14307 TOM 6 6 [facility] T VISIT LIMITED/M INOR PROB EMERGENCY 76330 TOM 6 6 [facility] T VISIT LOW/MODER SEVERITY HOSPITAL TOM - 6 6 [facility] OUTPATIEN INC T EMERGENCY 39887 LESLIE BLOCK, 6 6 PHYSICIAN [facility], [facility] T VISIT HIGH/URGE NT SEVERITY HOSPITAL TOM - 6 6 [facility] OUTPATIEN [facility] EMERGENCY 87949 LESLIE WHYTE [address] [facility] T VISIT MODERATE SEVERITY EMERGENCY 87772 TOM 6 6 [facility] T VISIT LOW/MODER SEVERITY HOSPITAL TOM - 6 6 [facility] INPATIENT [facility] TOM - 6 6 [facility] OUTPATIEN [facility] OFFICE 27685 [facility] 6 6 PHYSICIAN JOHN T VISIT S GROUP 15 MINUTES HOSPITAL TOM [facility] 6 6 [facility] TOM [facility] 6 6 [facility] EMERGENCY 42973 LESLIE WHYTE 6 6 PHYSICIAN [facility] T VISIT HIGH/URGE NT SEVERITY EMERGENCY 59629 TOM 6 6 [facility] T VISIT MODERATE SEVERITY HOSPITAL TOM - 6 6 [facility] OUTPATIEN [facility] HOSPITAL TOM [facility] 6 6 [facility] EMERGENCY 92301 LESLIE WHYTE [address] [facility] T VISIT HIGH/URGE NT SEVERITY EMERGENCY 58998 TOM 5 5 [facility] T VISIT LOW/MODER SEVERITY HOSPITAL TOM - 5 5 [facility] OUTPATIEN [facility] EMERGENCY 06228 LESLIE MCGOWAN 5 5 [facility] T VISIT HIGH/URGE NT SEVERITY EMERGENCY 00100 TOM 5 5 [facility] T VISIT MODERATE SEVERITY HOSPITAL TOM - 5 5 [facility] OUTPATIEN [facility] EMERGENCY 11215 TOM 5 5 [facility] INC T VISIT LOW/MODER SEVERITY HOSPITAL TOM Guillory 5 5 [facility] OUTPATIEN INC T EMERGENCY 63633 LESLIE MENDEZ 5 5 PHYSICIAN DEPARTMEN S, [facility] T VISIT HIGH/URGE NT SEVERITY HOSPITAL TOM Guillory 5 5 [facility] OUTPATIEN INC T EMERGENCY 73273 TOM 5 5 [facility] VISIT LOW/MODER SEVERITY
--- OUTSIDE RECORDS SUMMARY | 2017-06-27 05:21 | External Medical Summary Rpt | CCD ---
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 64156 [facility] 5 [facility] TEST INC INC VISUAL COLOR CMPRSN METHS Encounters Encounter Start End Date Code Location Performer Type Date [facility] TOM - 7 7 [facility] 7 7 [facility] 7 7 [facility] OFF[facility] 72570 [facility] NE[facility] OUTPATIEN 7 7 PHYSICIAN T VISIT S GROUP 15 MINUTES OFFICE 70053 [facility] OUTPATIEN 7 7 PHYSICIAN T VISIT S GROUP 15 MINUTES OFFICE 73578 [facility] OUTPATIEN 7 7 [facility] T VISIT 5 INC MINUTES HOSPITAL TOM - 7 7 [facility] OUTPATIEN INC T EMERGENCY 45490 TOM 7 7 [facility] DEPARTMEN INC T VISIT LOW/MODER SEVERITY HOSPITAL TOM - 7 7 [facility] OUTPATIEN INC T EMERGENCY 29753 LESLIE WHYTE DEPT 7 7 PHYSICIAN VISIT S, PLLC HIGH SEVERITY& THREAT FUNCJ EMERGENCY 71317 LESLIE WHYTE 7 7 PHYSICIAN DEPARTMEN S, [facility] T VISIT HIGH/URGE NT SEVERITY OFFICE 46624 A C KILPELA OUTPATIEN 7 7 AIX[facility] SHAW T VISIT PSC 15 MINUTES EMERGENCY 60850 LESLIE COLE 7 7 PHYSICIAN U [facility], [facility] HIGH/URGE NT SEVERITY OFFICE 40824 [facility] OUTPATIEN 7 7 [facility] T VISIT 5 INC MINUTES HOSPITAL TOM - 7 7 [facility] OUTPATIEN INC T OFFICE 83104 A C KILPELA OUTPATIEN 7 7 [facility] SHAW T VISIT PSC 15 MINUTES OFFICE 47711 A C KILPELA OUTPATIEN 7 7 [facility] SHAW T VISIT PSC 15 MINUTES HOSPITAL TOM - 7 7 [facility] OUTPATIEN INC T HOSPITAL TOM - 7 7 [facility] OUTPATIEN INC T HOSPITAL TOM - 7 7 [facility] OUTPATIEN INC T OFFICE 59361 [facility] SAIGE CONSULTAT 7 7 PHYSICIAN ION S GROUP NEW/ESTAB PATIENT 30 MIN HOSPITAL 12-07-201 12-07-201 TOM - 6 6 [facility] OUTPATIEN INC T EMERGENCY 02428 LESLIE ANDINOEY 6 6 PHYSICIAN MI FILIPPO Urbina [facility] T VISIT MODERATE SEVERITY EMERGENCY 30796 LESLIE WHYTE 6 6 PHYSICIAN MI FILIPPO S PLLC T VISIT HIGH/URGE NT SEVERITY OFFICE 62170 [facility] NEWELL OUTPATIEN 6 6 PHYSICIAN JOHN T VISIT S GROUP 15 MINUTES HOSPITAL TOM - 6 6 [facility] OUTPATIEN INC T OFFICE 19644 A Grace COLLAZO OUTPATIEN 6 6 AIXA MACEDO T VISIT PSC 15 MINUTES OFFICE 18859 [facility] REECE OUTPATIEN 6 6 PHYSICIAN JOHN T VISIT S GROUP 25 MINUTES EMERGENCY 71733 LESLIE COLE 6 6 PHYSICIAN Bonita MICHEL FILIPPO S PLLC T VISIT HIGH/URGE NT SEVERITY HOSPITAL TOM - 6 6 [facility] OUTPATIEN INC T OFFICE 73275 [facility] MATILDE OUTPATIEN 6 6 PHYSICIAN KATHERINE Lakhani NEW 20 S GROUP MINUTES EMERGENCY 28145 LESLIE WHYTE 6 6 PHYSICIAN MI FILIPPO S PLLC T VISIT HIGH/URGE NT SEVERITY EMERGENCY 88066 LESLIE LEMUS 6 6 PHYSICIAN FAIZA BARKLEY S [facility] T VISIT MODERATE SEVERITY EMERGENCY 73703 LESLIE COLE 6 6 PHYSICIAN Bonita [facility] T VISIT MODERATE SEVERITY OFFICE 40702 A Grace COLLAZO OUTPATIFRANK 6 6 [facility] Lakhani VISIT PSC 15 MINUTES HOSPITAL TOM - 6 6 [facility] OUTPATIEN INC T OFFICE 79397 Pravin GUERIN OUTPATIEN 6 6 AIXA Lakhani NEW 45 PSC MINUTES EMERGENCY 90905 LESLIE WHYTE DEPT 6 6 PHYSICIAN MI VISIT SFLORESC HIGH SEVERITY& THREAT FUNCJ EMERGENCY 36744 LESLIE WHYTE 6 6 PHYSICIAN MI DEPARTMEN S, PLLC T VISIT MODERATE SEVERITY EMERGENCY 95994 TOM 6 6 [facility] DEPARTMEN INC T VISIT LIMITED/M [facility] TOM - 6 6 [facility] OUTPATIEN INC T EMERGENCY 82759 LESLIE ANDINOEY 6 6 PHYSICIAN MI DEPARTMEN S PLLC T VISIT LOW/MODER SEVERITY EMERGENCY 95900 LESLIE WHYTE 6 6 PHYSICIAN MI DEPARTMEN S, PLLC T VISIT MODERATE SEVERITY EMERGENCY 47226 TOM 6 6 [facility] DEPARTMEN INC T VISIT LOW/MODER SEVERITY HOSPITAL TOM - 6 6 [facility] OUTPATIEN INC T EMERGENCY 32800 LESLIE ANDINOEY 6 6 PHYSICIAN MI DEPARTMEN S PLLC T VISIT MODERATE SEVERITY HOSPITAL TOM - 6 6 [facility] OUTPATIEN INC T EMERGENCY 24296 TOM 6 6 [facility] DEPARTMEN INC T VISIT LOW/MODER SEVERITY EMERGENCY 62804 LESLIE WHYTE 6 6 PHYSICIAN MI DEPARTMEN S PLLC T VISIT MODERATE SEVERITY EMERGENCY 01644 LESLIE LEMUS 6 6 PHYSICIAN FAIZA DEPARTMEN S PLLC T VISIT MODERATE SEVERITY EMERGENCY 99657 TOM 6 6 [facility] DEPARTMEN INC T VISIT LOW/MODER SEVERITY HOSPITAL TOM - 6 6 [facility] OUTPATIEN INC T EMERGENCY 70198 LESLIE GREENUSCH 6 6 PHYSICIAN FAIZA DEPARTMEN S, PLLC T VISIT HIGH/URGE NT SEVERITY EMERGENCY 51258 TOM 6 6 [facility] DEPARTMEN INC T VISIT MODERATE SEVERITY HOSPITAL TOM - 6 6 [facility] T EMERGENCY 15220 LESLIE ANDINOEY [address] [facility] S, [facility] T VISIT HIGH/URGE NT SEVERITY EMERGENCY 49289 [facility] T VISIT LOW[facility]MODER SEVERITY HOSPITAL TOM - 6 6 [facility] T OFFICE 15512 [facility] 6 6 PHYSICIAN JOHN T VISIT S GROUP 15 MINUTES EMERGENCY 96935 LESLIE COLE DEPT 6 6 PHYSICIAN Bonita MICHEL VISIT S, [facility] HIGH SEVERITY& THREAT FUNJ EMERGENCY 52431 [facility] 6 6 [facility] T VISIT LOW/MODER SEVERITY HOSPITAL TOM - 6 6 [facility] T EMERGENCY 58076 [facility]OM 6 6 [facility] T VISIT LOW/MODER SEVERITY HOSPITAL TOM - 6 6 [facility] OUTPATIEN [facility] T EMERGENCY 04728 LESLIE WHYTE [address] [facility] S, [facility] T VISIT HIGH/URGE NT SEVERITY EMERGENCY 02544 TOM 6 6 [facility] T VISIT LIMITED/M [facility] PROB HOSPITAL TMO - 6 6 [facility] T EMERGENCY 81495 LESLIE WHYTE [address] [facility] S [facility] T VISIT MODERATE SEVERITY EMERGENCY 40934 LESLIE WHYTE [address] [facility] S, [facility] T VISIT HIGH/URGE NT SEVERITY HOSPITAL TOM - 6 6 [facility] T EMERGENCY 46141 [facility]OM 6 6 [facility] T VISIT LIMITED/M INOR PROB EMERGENCY 39105 LESLIE BLOCK, 6 6 PHYSICIAN [facility], [facility] T VISIT HIGH/URGE NT SEVERITY EMERGENCY 59578 [facility]OM 6 6 [facility] T VISIT LOW/MODER SEVERITY HOSPITAL TOM - 6 6 [facility] OUTPATIEN [facility] T EMERGENCY 90530 LESLIE WHYTE [address] [facility] S, [facility] T VISIT MODERATE SEVERITY HOSPITAL TOM - 6 6 [facility] OUTPATIEN [facility] T EMERGENCY 30217 [facility]OM 6 6 [facility] T VISIT LOW/MODER SEVERITY HOSPITAL TOM - 6 6 [facility] INPATIENT INC OFFICE 04133 [facility] 6 6 PHYSICIAN JOHN T VISIT S GROUP 15 MINUTES HOSPITAL TOM - 6 6 [facility] OUTPATIEN INC T HOSPITAL TOM [facility] 6 6 [facility] OUTPATIEN [facility] T HOSPITAL TOM [facility] 6 6 [facility] OUTPATIEN [facility] T EMERGENCY 67677 TOM 6 6 [facility] T VISIT MODERATE SEVERITY EMERGENCY 12520 LESLIE WHYTE [address] [facility] S, [facility] T VISIT HIGH/URGE NT SEVERITY HOSPITAL TOM - 6 6 [facility] OUTPATIEN [facility] T HOSPITAL TOM [facility] 6 6 [facility] OUTPATIEN [facility] T EMERGENCY 61957 TOM 5 5 [facility] T VISIT LOW/MODER SEVERITY EMERGENCY 29847 LESLIE WHYTE [address] [facility] T VISIT HIGH/URGE NT SEVERITY HOSPITAL TOM - 5 5 [facility] OUTPATIEN [facility] T EMERGENCY 14616 LESLIE MCGOWAN 5 5 PHYSICIAN DEPARTMEN S, [facility]IS[facility] HIGH/URGE NT SEVERITY EMERGENCY 60638 TOM 5 5 [facility] VISIT MODERATE SEVERITY HOSPITAL TOM - 5 5 [facility] OUTPATIEN [facility] T EMERGENCY 86213 LESLIE MENDEZ 5 5 PHYSICIAN DEPARTMEN S, [facility] T VISIT HIGH/URGE NT SEVERITY HOSPITAL TOM - 5 5 [facility] OUTPATIEN INC T EMERGENCY 23602 [facility] 5 5 [facility] T VISIT LOW[facility]MODER [facility]VERITY HOSPITAL TOM - 5 5 [facility] OUTPATIEN [facility] T EMERGENCY 72004 [facility] 5 5 [facility] T VISIT LOW/MODER SEVERITY
--- OUTSIDE RECORDS SUMMARY | 2017-06-27 05:21 | External Medical Summary Rpt | CCD ---
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 MODERATE SEVERITY EMERGENCY 38433 LESLIE WHYTE 6 6 PHYSICIAN MI FILIPPO S PLLC T VISIT HIGH/URGE NT SEVERITY OFFICE 09465 [facility] NEWELL OUTPATIEN 6 6 PHYSICIAN JOHN T VISIT S GROUP 15 MINUTES HOSPITAL TOM - 6 6 [facility] OUTPATIEN INC T OFFICE 19493 A Grace COLLAZO OUTPATIEN 6 6 AIXA MACEDO T VISIT PSC 15 MINUTES OFFICE 43930 [facility] REECE OUTPATIEN 6 6 PHYSICIAN JOHN T VISIT S GROUP 25 MINUTES EMERGENCY 28104 LESLIE COLE 6 6 PHYSICIAN Bonita MICHEL FILIPPO S PLLC T VISIT HIGH/URGE NT SEVERITY HOSPITAL TOM - 6 6 [facility] OUTPATIEN INC T OFFICE 18128 [facility] MATILDE OUTPATIEN 6 6 PHYSICIAN KATHERINE Lakhani NEW 20 S GROUP MINUTES EMERGENCY 20542 LESLIE WHYTE 6 6 PHYSICIAN MI FILIPPO S PLLC T VISIT HIGH/URGE NT SEVERITY EMERGENCY 70942 LESLIE LEMUS 6 6 PHYSICIAN FA[facility]A [facility] MODERATE SEVERITY EMERGENCY 06549 LESLIE COLE 6 6 PHYSICIAN Bon[facility] VIS[facility] MODERATE SEVERITY OFFICE 28292 A Grace COLLAZO OUTPATIFRANK 6 6 AIXA Lakhani VISIT PSC 15 MINUTES HOSPITAL TOM - 6 6 [facility] OUTPATIEN INC T OFFICE 08857 Pravin GUERIN OUTPATIEN 6 6 AIXA Lakhani NEW 45 PSC MINUTES EMERGENCY 56970 LESLIE WHYTE DEPT 6 6 PHYSICIAN MI VISIT SFLORESC HIGH SEVERITY& THREAT FUNCJ EMERGENCY 21769 LESLIE WHYTE 6 6 PHYSICIAN MI DEPARTMEN S, PLLC T VISIT MODERATE SEVERITY EMERGENCY 66601 TOM 6 6 [facility] DEPARTMEN INC T VISIT LIMITED/M [facility] TOM - 6 6 [facility] OUTPATIEN INC T EMERGENCY 16619 LESLIE ANDINOEY 6 6 PHYSICIAN MI DEPARTMEN S PLLC T VISIT LOW/MODER SEVERITY EMERGENCY 19343 LESLIE WHYTE 6 6 PHYSICIAN MI DEPARTMEN S, PLLC T VISIT MODERATE SEVERITY EMERGENCY 18326 TOM 6 6 [facility] DEPARTMEN INC T VISIT LOW/MODER SEVERITY HOSPITAL TOM - 6 6 [facility] OUTPATIEN INC T EMERGENCY 60662 LESLIE ANDINOEY 6 6 PHYSICIAN MI DEPARTMEN S PLLC T VISIT MODERATE SEVERITY HOSPITAL TOM - 6 6 [facility] OUTPATIEN INC T EMERGENCY 35611 TOM 6 6 [facility] DEPARTMEN INC T VISIT LOW/MODER SEVERITY EMERGENCY 37000 LESLIE WHYTE 6 6 PHYSICIAN MI DEPARTMEN S PLLC T VISIT MODERATE SEVERITY EMERGENCY 55265 LESLIE LEMUS 6 6 PHYSICIAN FAIZA DEPARTMEN S PLLC T VISIT MODERATE SEVERITY EMERGENCY 05600 TOM 6 6 [facility] DEPARTMEN INC T VISIT LOW/MODER SEVERITY HOSPITAL TOM - 6 6 [facility] OUTPATIEN INC T EMERGENCY 84529 LESLIE GREENUSCH 6 6 PHYSICIAN FAIZA DEPARTMEN S, PLLC T VISIT HIGH/URGE NT SEVERITY EMERGENCY 30459 TOM 6 6 [facility] DEPARTMEN INC T VISIT MODERATE SEVERITY HOSPITAL TOM - 6 6 [facility] T EMERGENCY 43638 LESLIE ANDINOEY 6 6 PHYSICIAN [facility] S, [facility] T VISIT HIGH/URGE NT SEVERITY EMERGENCY 67609 TOM 6 6 [facility] T VISIT LOW/MODER SEVERITY HOSPITAL TOM - 6 6 [facility] T OFFICE 30862 [facility] 6 6 PHYSICIAN JOHN T VISIT S GROUP 15 MINUTES EMERGENCY 26125 LESLIE COLE DEPT 6 6 PHYSICIAN Bonita MICHEL VISIT S, [facility] HIGH SEVERITY& THREAT FUNJ EMERGENCY 72472 TOM 6 6 [facility] T VISIT [facility]OW/MODER SEVERITY HOSPITAL TOM - 6 6 [facility] T EMERGENCY 33420 TOM 6 6 [facility] T VISIT LOW[facility]MODER SEVERITY HOSPITAL TOM - 6 6 [facility] OUTPATIEN [facility] T EMERGENCY 90270 LESLIE WHYTE 6 6 PHYSICIAN [facility] S, [facility] T VISIT HIGH/URGE NT SEVERITY EMERGENCY 25390 TOM [address] [facility] T VISIT LIMITED/M [facility] TOM - 6 6 [facility] T EMERGENCY 50314 LESLIE WHYTE 6 6 PHYSICIAN [facility] S [facility] T VISIT MODERATE SEVERITY EMERGENCY 27579 LESLIE WHYTE 6 6 PHYSICIAN [facility] S, [facility] T VISIT HIGH/URGE NT SEVERITY HOSPITAL TOM - 6 6 [facility] T EMERGENCY 68367 TOM 6 6 [facility] T [facility]ISIT LIMITED/M INOR PROB EMERGENCY 04180 LESLIE BLOCK, 6 6 PHYSICIAN JR [facility]BERTS [facility] S, [facility] T VISIT HIGH/URGE NT SEVERITY EMERGENCY 06092 TOM 6 6 [facility] T VISIT LOW/MODER SEVERITY HOSPITAL TOM - 6 6 [facility] OUTPATIEN [facility] T EMERGENCY 91704 LESLIE WHYTE 6 6 PHYSICIAN [facility] S, [facility] T VISIT MODERATE SEVERITY HOSPITAL TOM - 6 6 [facility] OUTPATIEN [facility] T EMERGENCY 25834 TOM 6 6 [facility] T VISIT LOW/MODER SEVERITY HOSPITAL TOM - 6 6 [facility] INPATIENT INC OFFICE 19732 [facility] 6 6 PHYSICIAN JOHN T VISIT S GROUP 15 MINUTES HOSPITAL TOM - 6 6 [facility] OUTPATIEN INC T HOSPITAL TOM [facility] 6 6 [facility] OUTPATIEN [facility] T HOSPITAL TOM [facility] 6 6 [facility] OUTPATIEN [facility] T EMERGENCY 76271 [facility]OM 6 6 [facility] T VISIT MODERATE SEVERITY EMERGENCY 59340 LESLIE WHYTE 6 6 PHYSICIAN [facility] S, [facility] T VISIT HIGH/URGE NT SEVERITY HOSPITAL TOM - 6 6 [facility] OUTPATIEN [facility] T HOSPITAL TOM - 6 6 [facility] OUTPATIEN [facility] T EMERGENCY 10772 [facility]OM 5 5 [facility] T VISIT LOW/MODER SEVERITY EMERGENCY 43338 LESLIE WHYTE 5 5 PHYSICIAN [facility] S [facility] T VISIT HIGH/URGE NT SEVERITY HOSPITAL TOM - 5 5 [facility] OUTPATIEN [facility] T EMERGENCY 75995 LESLIE MCGOWAN 5 5 [facility] H[facility]/URGE NT SEVERITY EMERGENCY 40175 TOM 5 5 [facility] T VISIT MODERATE SEVERITY HOSPITAL TOM - 5 5 [facility] OUTPATIEN [facility] T EMERGENCY 50655 LESLIE MENDEZ 5 5 PHYSICIAN DEPARTMEN S, [facility] T VISIT HIGH/URGE NT SEVERITY HOSPITAL TOM - 5 5 [facility] OUTPATIEN INC T EMERGENCY 21727 TOM 5 5 [facility] T VISIT LOW/MODER SEVERITY HOSPITAL TOM - 5 5 [facility] OUTPATIEN [facility] T EMERGENCY 60066 TOM 5 5 [facility] T VISIT LOW/MODER SEVERITY
--- OUTSIDE RECORDS SUMMARY | 2017-06-27 05:22 | External Medical Summary Rpt | CCD ---
Author Author , JESUS LEE Address Unknown Phone [email or web address] Immunization Name Date Rout CVX Reac Dose Comm Prov Is Faci e tion ent ider Refu lity Give sed n Vari 05-1 Subc 21 0.50 Hist ANDREW No H149 cell 6-20 utan mL oric E a 16 eous al ANDR Info EA rmat ion - Sour ce Unsp ecif ied
--- OUTSIDE RECORDS SUMMARY | 2017-06-27 05:22 | External Medical Summary Rpt | CCD ---
Author Author , JESUS LEE Address Unknown Phone [email or web address] Immunization Name Date Rout CVX Reac Dose Comm Prov Is Faci e tion ent ider Refu lity Give sed n Vari 05-1 Subc 21 0.50 Hist ANDREW No H149 cell 6-20 utan mL oric E a 16 eous al ANDR Info EA rmat ion - Sour ce Unsp ecif ied
--- NOTE | 2017-06-27 07:01 | RADIOLOGY REPORT PS360 ---
KUB (SINGLE VIEW) HISTORY: constipation ORDERING PHYSICIAN: Le Morris MD PATIENT AGE: 22 years COMPARISON: None FINDINGS: There is a moderate amount retained colonic feces throughout the colon greatest in the ascending colon. No evidence of small bowel obstruction or abnormal calcifications. Calcified phlebolith is present in the right pelvis. The symphysis pubis is widened. IMPRESSION: 1. Constipation. 2. Widened symphysis pubis at 3.7 cm
== END 2017-06-26 20:11 | disposition home or self-care (01) ==
LOC: ER 18:07
PROVIDERS: General Practice
DX: K59.01 Slow transit constipation (principal)

== ENCOUNTER 2017-07-10 00:36 | Emergency (ER) | payer MEDICAID ==
[~2017-07-10] VITALS: Ht 170.2 cm; Wt 81.6 kg
[~2017-07-10 00:36] MED LIST changes: +ACETAMIN W/CODE1 TAB PO; +MAGNESIUM1.75 GM/30 PO
[2017-07-10] MEDS ORDERED: BUDEPRION XL150 MG PO (00:46)
[2017-07-10] MEDS ORDERED: FUROSEMIDE 20MG20 MG FT (00:46)
[2017-07-10 01:08] LABS: HEMOGLOBIN 12.4 g/dL (12.2-16.2); LYMPH % 38.7 % (10-50.0)
[2017-07-10 01:09] LABS: URINE BILIRUBIN - DIPSTICK NEGATIVE (NEG); URINE BLOOD 3+ (NEG)
--- OUTSIDE RECORDS SUMMARY | 2017-07-10 01:12 | External Medical Summary Rpt | CCD ---
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 21:03 ta subunit (pregna ncy test) [Presen ce] in Serum or Plasma Choriogonadotropin.beta subunit ( test) [Presence] in Serum or Plasma (02-04-2017 21:50) Choriog 36955.5 complet onadotr 017 ed opin.be 21:50 ta subunit (pregna ncy test) [Presen ce] in Serum or Plasma Urinalysis dipstick W Reflex Microscopic panel in Urine (02-04-2017 21:35) Bacteri 1+ O complet a 017 ed [Presen 21:35 ce] in Urine sedimen t by Light microsc opy Erythro 5-10 0 complet cytes 017 ed [Presen 21:35 ce] in Urine sedimen t by Light microsc opy Epithel 10-20 0#/hp complet ial 017 f - ed cells.s 21:35 5#/hp quamous f [Presen ce] in Urine sedimen t by Microsc opy high power field Trichom 05-25-2 1+ NONE complet onas sp 017 ed 21:35 [Presen ce] in Urine by Light microsc opy Leukocy 02-04-2 5-10 O complet gillian 017 wbc/hpf ed [#/volu 21:35 me] in Urine Urinalysis dipstick W Reflex Microscopic panel in Urine (02-04-2017 21:35) Appeara CLEAR CLEAR complet nce of 017 ed Urine 21:35 Bilirub NEGATIV NEG complet in 017 E ed [Presen 21:35 ce] in Urine by Test strip Erythro NEGATIV NEG complet cytes 017 E ed [Presen 21:35 ce] in Urine Color YELLOW YELLOW complet of 017 ed Urine 21:35 Ketones NEGATIV NEG complet 017 E ed [Presen 21:35 ce] in Urine by Automat ed test strip Mucus 02-04-2 2+ NEG Abnorma complet [Presen 017 l ed ce] in 21:35 Urine sedimen t by Light microsc opy Nitrite NEGATIV NEG complet 017 E ed [Presen 21:35 ce] in Urine by Test strip Urobili 02-04-2 1.0 NEG complet nogen 017 ed [Presen 21:35 ce] in Urine by Test strip Procedures Procedure DOS Code Location Performer Comment 50614 [facility]STRESS [facility] TEST INC INC CULTURE 63151 OTM [facility] BACTERIAL 7 [facility] INC INC QUANTTATI VE COLONY COUNT URINE DRUG TEST 21006 [facility] PRSMV [facility] QUAL DIR INC INC OPTICAL OBS PER DAY 71644 TOM [facility] NONSTRESS 7 [facility] TEST INC INC DRUG TEST 04101 [facility] R[facility] PRSMV 7 PHYSICIAN QUAL DIR S GROUP OPTICAL OBS PER DAY THERAPEUT 92565 [facility] IC 7 [facility] PROPHYLAC INC INC TIC/DX INJECTION SUBQ/IM UNCLASSIF J3490 TOM [facility]ANT[facility] IED DRUGS 7 [facility] INC INC UNCLASSIF J3490 [facility]OM [facility] IED DRUGS 7 [facility] INC INC THERAPEUT 47347 TOM [facility]OS IC 7 [facility] PROPHYLAC INC INC TIC/DX INJECTION SUBQ/IM DRUG TEST 88970 TOM SANTOS PRSMV 7 [facility] QUAL DIR INC INC OPTICAL OBS PER DAY CULTURE 59243 TOM [facility] BACTERIAL 7 [facility] INC INC QUANTTATI VE COLONY COUNT URINE 61608 [facility]OM [facility] NONSTRESS 7 [facility] TEST INC INC 39082 TOM SANTOS NONSTRESS 7 [facility] TEST INC INC URNLS DIP 24011 [facility]OS [facility] STICK/TAB INC INC LET REAGENT AUTO MICROSCOP Y CULTURE 19475 [facility]OM [facility] BACTERIAL 7 [facility] INC INC QUANTTATI VE COLONY COUNT URINE UNCLASSIF J3490 TOM [facility] IED DRUGS 7 [facility] INC INC SUSCEPTIB 78351 TOM SANTOS LTY STDY 7 [facility] ANTIMICRB INC INC IAL MICRO/AGA R DILUTJ URNLS DIP 74573 [facility] STICK/TAB INC INC LET REAGENT AUTO MICROSCOP Y 53320 TOM SANT[facility] NONSTRESS 7 [facility] TEST INC INC 56964 [facility] R[facility] NONSTRESS 7 PHYSICIAN TEST S GROUP US [facility]REG 70000 [facility] UTERUS 7 MEDICAL AFTER 1ST IMAGING TRIMEST ASS GESTATION URINE 93831 [facility] NEWELL 7 PHYSICIAN TEST S GROUP VISUAL COLOR CMPRSN METHS DRUG TEST 94548 [facility] PRSMV 7 PHYSICIAN QUAL DIR S GROUP OPTICAL OBS PER DAY CULTURE 20601 T[facility] BACTERIAL 7 [facility] INC INC QUANTTATI VE COLONY COUNT URINE GONADOTRO 16458 TOM SANTOS PIN 7 [facility] CHORIONIC INC INC QUANTITAT SHAYNE URNLS DIP 93812 TOM SANTOS 7 [facility] STICK/TAB INC INC LET REAGENT AUTO MICROSCOP Y RADIOLOGI 00620 [place] C 7 MEDICAL EXAMINATI IMAGING ON KNEE 3 ASS VIEWS IAADIADOO 01582 [facility] INFLUENZA INC INC UNCLASSIF J3490 TOM SANTOS IED DRUGS 7 [facility] INC INC LEVEL V 14938 [facility] SURG 7 LLC PATHOLOGY GROSS&MI ROSCOPIC EXAM BIOPSY 66656 [facility] SAIGE BREAST 7 PHYSICIAN OPEN S GROUP INCISIONA L PERQ 73190 [place] BREAST 7 MEDICAL LOC IMAGING DEVICE ASS PLACEMT 1ST LESIO US IMAG ANES 00126 COMMUNITY FEEBACK INTEG 7 ANESTH EXTREMITI OF THE ES ANT BLUE TRUNK & PERINEUM NOS US BREAST 76535 TOM SANTOS UNI REAL 7 [facility] TIME INC INC WITH IMAGE COMPLETE RADIOLOGI 61670 TOM SANTOS RADHA 7 [facility] EXAMINATI INC INC ON SURGICAL SPECIMEN GONADOTRO 38633 TOM SANTOS PIN 7 [facility] CHORIONIC INC INC QUALITATI VE BASIC 65526 TOM SANTOS METABOLIC 7 [facility] PANEL INC INC CALCIUM TOTAL COLLECTIO 79890 TOM SANTOS N VENOUS 7 [facility] BLOOD INC INC VENIPUNCT URE US SOFT 96565 TOM SANTOS TISSUE 7 [facility] HEAD & INC INC NECK REAL TIME IMGE DOCM US BREAST 00497 TOM SANTOS UNI REAL 6 [facility] TIME INC INC WITH IMAGE COMPLETE BX BREAST 75006 [place] W/DEVICE 6 MEDICAL 1ST IMAGING [place] [address] [place] SURG 6 SY & GREG PATHOLOGY DUBILIER GROSS&MI ROSCOPIC EXAM PROBE/NEE C2618 TOM SANTOS DLE 6 [facility] CRYOABLAT INC INC ION RADEX 59260 [place] EL[place]OW 6 MEDICAL ANAND COMPLETE IMAGING MINIMUM 3 ASS VIEWS RADEX 92368 [place]OTT HUMERUS 6 MEDICAL ANAND MINIMUM 2 IMAGING VIEWS ASS RADEX 72998 [place] FOREARM 2 6 MEDICAL AANND VIEWS IMAGING ASS SHOULDER L3650 [facility] 6 TECHNOLOG TECHNOLOG FIG 8 IES INC IES INC ABDUCT RESTRAINE R PREFAB RADEX 38026 [facility] SPINE 6 MEDICAL ANAND CERVICAL IMAGING 4 OR 5 ASS VIEWS RADEX 39351 [facility] CHAVE[facility] SHOULDER 6 MEDICAL ANAND COMPLETE IMAGING MINIMUM 2 ASS VIEWS RADEX 40444 TOM SANTOS ESOPHAGUS 6 [place] [address] TOM SANTOS TRANSVAGI 6 [facility] NAL INC INC US BREAST 52269 TRACIE RUBIO ALL UNI REAL 6 MEDICAL TIME IMAGING WITH ASS IMAGE LIMITED US BREAST 41041 TOM SANTOS UNI REAL 6 [facility] TIME INC INC WITH IMAGE COMPLETE URNLS DIP 03041 [facility] NE[facility] 6 PHYSICIAN JOHN STICK/TAB S GROUP LET RGNT NON-AUT[place] W/[place] [address] TRACIE RUBIO ALL ABDOMEN & 6 MEDICAL PELVIS IMAGING W/O ASS CONTRAST MATERIAL COLLECTIO 30994 TOM SANTOS N VENOUS 6 [facility] [place] [address] TOM SANTOS FREE 6 [facility] [place] [address] [facility]OM SANTOS THYROID 6 [facility] STIMULATI INC INC NG HORMONE TSH MICROSOMA 59232 TOM SANTOS L 6 [facility] ANTIBODIE INC INC S EACH RADIOLOGI 53074 [facility] [place] SCALF C 6 RADIOLOGY EXAMINATI ON NECK SOFT TISSUE GROUND A0425 [facility] ER 6 AMBULANCE AMBULANCE PER SERVICE SERVICE STATUTE MILE AMBULANCE A0429 [facility] SERVICE 6 AMBULANCE AMBULANCE BLS SERVICE SERVICE EMERGENCY TRANSPORT US SOFT 99718 [place] LIN TISSUE 6 MEDICAL PRICE HEAD & IMAGING NECK REAL ASS TIME IMGE DOCM HEMOGLOBI 89942 Pravin GUERIN N 6 AIXA HEBERT PSC ANA ROSA A1C GROUND A0425 [facility] MILEAGE 6 AMBULANCE AMBULANCE PER SERVICE SERVICE STATUTE MILE AMBULANCE A0429 [facility] SERVICE 6 AMBULANCE AMBULANCE BLS SERVICE SERVICE EMERGENCY TRANSPORT RADEX 66986 [place] ALL HAND 2 6 MEDICAL VIEWS IMAGING ASS RADEX 79025 TOM SANTOS HAND 6 [facility] MINIMUM 3 INC INC VIEWS UNCLASSIF J3490 TOM SANTOS IED DRUGS 6 [facility] INC INC URNLS DIP 41132 TOM TOM 6 [facility] STICK/TAB INC INC LET REAGENT AUTO MICROSCOP Y URINE 96639 [facility]ANTOS 6 [facility] TEST INC INC VISUAL COLOR CMPRSN METHS ANKLE L4350 [facility] CONTROL 6 TECHNOLOG TECHNOLOG ORTHOSIS IES INC IES INC STIRRUP STYL RIGID PREFAB RADEX 89878 [place] LIN ANKLE 6 MEDICAL PRICE COMPLETE IMAGING MINIMUM 3 ASS VIEWS CRTCHS E0114 [facility] UNDARM 6 TECHNOLOG TECHNOLOG OTH THAN IES INC IES INC WOOD PAIR PAD TIP&HNDGR IP REMOVAL 73710 [facility] NON-BIODE 6 PHYSICIAN JOHN GRADABLE [place] [address] TOM SANTOS INFUSION 6 [facility] THERAPY/P INC INC ROPHYLAXI S /DX 1ST TO 1 HR COMPREHEN 06601 TOM S[facility]OS SIVE 6 [facility] METABOLIC INC INC PANEL UNCLASSIF J3490 TOM SANTOS IED DRUGS 6 [facility] INC INC BLOOD 40101 TOM SANTOS COUNT 6 [facility] COMPLETE INC INC AUTO&AUTO DIFRNTL WBC URINE 90269 [facility]OS 6 [facility] TEST INC INC VISUAL COLOR CMPRSN METHS URNLS DIP 70073 TOM SANTOS 6 [facility] STICK/TAB INC INC LET REAGENT AUTO MICROSCOP Y UNCLASSIF J3490 TOM SANTOS IED DRUGS 6 [facility] INC INC ECG 45888 TOM SANTOS ROUTINE 6 [facility] ECG INC INC W/LEAST 12 LDS TRCG ONLY W/O I&R AMB A0427 YENNY RAMON SERVICE 6 AMBULANCE AMBULANCE ALS SERVICE SERVICE EMERGENCY TRANSPORT LEVEL [address] [place] [address] TOM SANTOS TROPONIN 6 [facility] QUANTITAT INC INC SHAYNE CREATINE 20589 TOM SANTOS KINASE 6 [facility] TOTAL INC INC COLLECTIO 83562 TOM SANTOS N VENOUS 6 [facility] BLOOD INC INC VENIPUNCT URE CREATINE 03136 TOM SANTOS KINASE MB 6 [facility] FRACTION INC INC ONLY ECG 10773 TOM [place] ROUTINE 6 [facility] W/LEAST P 12 LDS I&R ONLY GROUND A0425 YENNY RAMON MILEAGE 6 AMBULANCE AMBULANCE PER SERVICE SERVICE STATUTE MILE GROUND A0425 [facility] AM[facility]ULANCE PER SERVICE SERVICE STATUTE MILE AMBULANCE A0429 [facility] 6 AMBULANCE AMBULANCE BLS SERVICE [place] [address] TOM SANTOS AMYLASE 6 [place] [address] TOM SANTOS LIPASE 6 [facility] INC INC GONADOTRO 88051 TOM SANTOS PIN 6 [facility] CHORIONIC INC INC QUALITATI VE URNLS DIP 66233 TOM SANTOS 6 [facility] STICK/TAB INC INC LET REAGENT AUTO MICROSCOP Y COMPREHEN 43761 TOM [facility]ANTOS SIVE 6 [facility] [place] [address] TOM SANTOS ABDOMEN & 6 [facility] PELVIS INC INC W/O CONTRAST MATERIAL BLOOD 76278 TOM SANTOS COUNT 6 [facility] COMPLETE INC INC AUTO&AUTO DIFRNTL WBC UNCLASSIF J3490 TOM SANTOS IED DRUGS 6 [facility] INC INC RADEX 17648 TRACIE LIN RIBS 6 MEDICAL PRICE UNILATERA IMAGING L 2 VIEWS ASS RADEX 78765 TOM SANTOS RIBS UNI 6 [facility] W/POSTERO INC INC ANT CH MINIMUM 3 VIEWS URINE 71884 [facility] REECE 6 PHYSICIAN JOHN TEST S GROUP VISUAL COLOR CMPRSN METHS IADNA 15588 [facility], PICKLESIM NEISSERIA 6 LLC ER JR SHAISTA GONORRHOE AE AMPLIFIED PROBE TQ IADNA 18897 [facility], [facility] CHLAMYDIA 6 LLC ER JR SHAISTA TRACHOMAT IS AMPLIFIED PROBE TQ ETONOGEST J7307 [facility] REECE REL 6 PHYSICIAN JOHN CNTRACPT S GROUP IMPL SYS INCL IMPL & SPL CYTP C/V 63565 [facility], PICKLESIM AUTO THIN 6 LLC ER JR SHAISTA LYR PREPJ SCR MNL RESCR PHYS INSJ 86457 [facility] REECE NON-BIODE 6 PHYSICIAN JOHN GRADABLE S GROUP DRUG DELIVERY IMPLANT RUBEN 66696 [facility] VACCINE 6 [facility]IVE FOR HLTH DEPT HLTH DEPT SUBCUTANE ANTHONY [place]THON[place] USE [place] ADM [address]451 [facility] PRQ ID 6 [facility] SUBQ/IM HLTH DEPT HLTH DEPT NJXS 1 ANTHONY ANTHONY VACCINE GROUND A0425 [facility] MILEAGE 6 AMBULANCE AMBULANCE PER SERVICE SERVICE STATUTE MILE AMBULANCE A0429 [facility] SERVICE 6 AMBULANCE AMBULANCE BLS SERVICE SERVICE EMERGENCY TRANSPORT BLOOD 75486 TOM SANTOS COUNT 6 [facility] COMPLETE INC INC AUTO&[place] [address] [place] ALL ABDOMEN & 6 MEDICAL PELVIS IMAGING W/O ASS CONTRAST MATERIAL COMPREHEN 56595 TOM SANTOS SIVE 6 [facility] METABOLIC INC INC PANEL URINE 58964 [facility] 6 [facility] TEST INC INC [place] [address] TOM SANTOS AMYLASE 6 [facility] INC INC URNLS DIP 05113 TOM SANTOS 6 [facility] STICK/TAB INC INC LET REAGENT AUTO MICROSCOP Y URNLS DIP 25172 TOM SANTOS 6 [facility] STICK/TAB INC INC LET REAGENT AUTO MICROSCOP Y URINE 07033 [facility]OS 6 [facility] TEST INC INC VISUAL COLOR CMPRSN [facility] [address] [facility] OV[facility] DISCHARGE [address] [place] [address] DAY INTERNAL MANAGEMEN MED T 30 MIN/< SUBQ [address] [place] [address] CARE PER INTERNAL DAY E/M MED NORMAL GROUND A0425 [facility]ULANCE PER SERVICE SERVICE STATUTE MILE AMBULANCE A0429 [facility] SERVICE 6 AMBULANCE AMBULANCE BLS SERVICE SERVICE EMERGENCY TRANSPORT NEURAXIAL 99566 [facility] LABOR 6 ANESTH SHE ANALG/ANE OF THE S PLND BLUE VAGINAL DELIVERY VAGINAL 61874 [facility] REECE DELIVERY 6 PHYSICIAN JOHN ONLY S GROUP W/POSTPAR DREAD CARE HANDLG&/O 19076 [facility] R[facility] R CONVEY 6 PHYSICIAN JOHN OF SPEC S GROUP FOR TR OFFICE TO LAB PARTICLE 30716 TOM SANTOS AGGLUTINA 6 [facility] TION INC INC SCREEN EACH ANTIBODY DRUG TST G0477 [facility] REECE PRESUMP;C 6 PHYSICIAN JOHN PBL BEING S GROUP READ DC OPT OBV ONLY DRUG TST G0477 TOM SANTOS PRESUMP;C 6 [facility] PBL BEING INC INC READ DC OPT OBV ONLY AMB A0427 [facility] SERVICE 6 AMBULANCE AMBULANCE ALS SERVICE SERVICE EMERGENCY TRANSPORT LEVEL 1 CULTURE 14791 TOM SANTOS BACTERIAL 6 [facility] INC INC QUANTTATI VE COLONY COUNT URINE 12136 MICHAEL GROSSMAN NONSTRESS 6 [facility] SHAW SONAM TEST URNLS DIP 95282 TOM SANTOS 6 [facility] STICK/TAB INC INC LET REAGENT AUTO MICROSCOP Y EVAL C/V 52895 TOM SANTOS AMNIOTIC 6 [facility] FLUID INC INC PROTEIN QUAL EA SPECIMEN GROUND A0425 [facility] ER 6 AMBULANCE AMBULANCE [place] [address] TOM SANTOS INFUSION 6 [facility] THERAPY/P INC INC ROPHYLAXI S /DX 1ST TO 1 [place] [address] TOM SANTOS INFUSION 6 [facility] THERAPY INC INC PROPHYLAX IS/DX EA HOUR UNCLASSIF J3490 TOM TOM IED DRUGS 6 [facility] INC INC UNCLASSIF J3490 TOM SANTOS IED DRUGS 6 [facility] INC INC BLOOD 58900 TOM SANTOS COUNT 6 [facility] COMPLETE INC INC AUTO&AUTO DIFRNTL WBC CULTURE 99728 TOM SANTOS BACTERIAL 6 [facility] INC INC QUANTTATI VE COLONY COUNT URINE COMPREHEN 93929 TOM TOM SIVE 6 [facility] METABOLIC INC INC PANEL URNLS DIP 85518 TOM SANTOS 6 [facility] STICK/TAB INC INC LET REAGENT AUTO MICROSCOP Y URNLS DIP 68305 TOM SANTOS 6 [facility] STICK/TAB INC INC LET REAGENT AUTO MICROSCOP Y 09438 TOM SANTOS NONSTRESS 6 [facility] TEST INC INC CULTURE 79521 TOM SANTOS BACTERIAL 6 [facility] INC INC QUANTTATI VE COLONY COUNT URINE UNCLASSIF J3490 TOM TOM IED DRUGS 6 [facility] INC INC DRUG TST G0477 TOM SANTOS PRESUMP;C 6 [facility] PBL BEING INC INC READ DC OPT OBV ONLY DRUG TST G0477 [facility] REE[facility] PRESUMP;C 6 PHYSICIAN JOHN PBL BEING S GROUP READ DC OPT OBV ONLY OBSTETRIC 93059 TOM SANTOS PANEL 6 [facility] INC INC INF AGT G0432 TOM SANTOS AB DETECT 6 [facility] EIA TECH INC INC HIV-1&/HI V-2 SCR COLLECTIO 78021 TOM SANTOS N VENOUS 6 [facility] BLOOD INC INC VENIPUNCT URE US PREG 36130 [facility] R[facility] UTERUS 6 PHYSICIAN JOHN AFTER 1ST S GROUP TRIMEST / GESTATION URNLS DIP 80347 TOM S[facility]OS 5 [facility] STICK/TAB INC INC LET REAGENT AUTO MICROSCOP Y COMPREHEN 17364 TOM SANTOS SIVE 5 [facility] METABOLIC INC INC PANEL AMB A0427 [facility] SERVICE 5 AMBULANCE AMBULANCE ALS SERVICE SERVICE EMERGENCY TRANSPORT LEVEL 1 BLOOD 41260 TOM SANTOS COUNT 5 [facility] COMPLETE INC INC AUTO&AUTO DIFRNTL WBC GROUND A0425 [facility] MILEAGE 5 AMBULANCE AMBULANCE PER SERVICE SERVICE STATUTE MILE BLOOD 06173 TOM SANTOS COUNT 5 [facility] COMPLETE INC INC AUTO&AUTO DIFRNTL WBC UNCLASSIF J3490 TOM SANTOS IED DRUGS 5 [facility] INC INC THER 89933 TOM SANTOS PROPH/DX 5 [facility] NJX IV INC INC PUSH SINGLE/1S T SBST/DRUG URNLS DIP 40944 [facility] SANTOS 5 [facility] STICK/TAB INC INC LET REAGENT AUTO MICROSCOP Y THER 76847 TOM SANTOS PROPH/DX 5 [facility] NJX EA INC INC SEQL IV PUSH SBST/DRUG FAC BASIC 98095 TOM SANTOS METABOLIC 5 [facility] PANEL INC INC CALCIUM TOTAL US PREG 08527 [place] UTERUS 5 MEDICAL ANAND REAL TIME IMAGING W/IMAGE ASS DCMTN TRANSVAG URNLS DIP 76433 TOM S[facility]OS 5 [facility] STICK/TAB INC INC LET REAGENT AUTO MICROSCOP Y URINE 32647 [facility] 5 [facility] TEST INC INC VISUAL COLOR CMPRSN METHS CULTURE 43470 TOM SANTOS BACTERIAL 5 [facility] INC INC QUANTTATI VE COLONY COUNT URINE URINE 54432 [facility]OM [facility]OS 5 [facility] TEST INC INC VISUAL COLOR CMPRSN METHS URNLS DIP 58653 [facility]OM [facility] 5 [facility] STICK/TAB INC INC LET REAGENT AUTO MICROSCOP Y Encounters Encounter Start End Date Code Location Performer Type Date [facility] TOM [facility] OUTPATIEN INC [facility] TOM [facility] 7 [facility] OUTPATIEN INC T OFFICE 87736 [facility] REECE OUTPATIEN 7 7 PHYSICIAN T VISIT S GROUP 15 MINUTES [facility] T[facility] - 7 7 [facility]PAT[facility] INC T [facility] TOM - 7 7 [facility] OUTPATIEN INC T OFFICE 75591 [facility] OUTPATIEN 7 7 PHYSICIAN T VISIT S GROUP 15 MINUTES HOSPITAL TOM - 7 7 [facility] OUTPATIEN INC T [facility]PITAL TOM - 7 7 [facility]PATIEN INC T [facility]PITAL TOM - 7 7 [facility] OUTPATIEN INC T OFFICE 85728 [facility] OUTPATIEN 7 7 PHYSICIAN T VISIT S GROUP 15 MINUTES OFFICE 90407 [facility] OUTPATIEN 7 7 PHYSICIAN T VISIT S GROUP 15 MINUTES OFFICE 99112 [facility] OUTPATIEN 7 7 PHYSICIAN T VISIT S GROUP 15 MINUTES HOSPITAL TOM - 7 7 [facility] OUTPATIEN INC T OFFICE 37075 TOM OUTPATIFRANK 7 7 [facility] T VISIT 5 INC MINUTES EMERGENCY 07476 TOM 7 7 [facility] DEPARTMEN INC T VISIT LOW/MODER SEVERITY EMERGENCY 57863 LESLIE WHYTE DEPT 7 7 PHYSICIAN VISIT S, PLLC HIGH SEVERITY& THREAT [facility] TOM - 7 7 [facility] OUTPATIEN INC T EMERGENCY 68319 LESLIE WHYTE 7 7 PHYSICIAN DEPARTMEN S, PLLC T VISIT HIGH/URGE NT SEVERITY OFFICE 02851 Pravin MOORE 7 7 [facility] SHAW T VISIT PSC 15 MINUTES EMERGENCY 70252 LESLIE COLE 7 7 PHYSICIAN U DEPARTMEN S, PLLC T VISIT HIGH/URGE NT SEVERITY OFFICE 72597 T[facility] OUTPATIEN 7 7 [facility] T VISIT 5 INC MINUTES HOSPITAL TOM - 7 7 [facility] OUTPATIEN [facility] T OFFICE 75925 [facility] [place] OUTPATIEN 7 7 AIXA SHAW T VISIT PSC 15 MINUTES OFFICE 00867 [facility] [place] OUTPATIEN 7 7 [facility] SHAW T VISIT PSC 15 MINUTES HOSPITAL TOM - 7 7 [facility] OUTPATIEN [facility] TOM - 7 7 [facility] OUTPATIEN [facility] T OFFICE [id number] [facility] SAIGE CONSULTAT 7 7 PHYSICIAN ORESTES S GROUP NEW/ESTAB PATIENT 30 MIN HOSPITAL TOM - 7 7 [facility] OUTPATIEN [facility] TOM - 6 6 [facility] T EMERGENCY 03154 LESLIE WHYTE 6 6 PHYSICIAN MI Urbina PLLC T VISIT MODERATE SEVERITY EMERGENCY 26997 LESLIE WHYTE 6 6 PHYSICIAN MI Urbina PLLC T VISIT HIGH/URGE NT SEVERITY OFFICE 03773 [facility] REECE MOORE 6 6 PHYSICIAN JOHN T VISIT S GROUP 15 MINUTES HOSPITAL TOM - 6 6 [facility] OUTPATIEN [facility] T OFFICE 88514 A C [facility] OUTPATIEN 6 6 [facility] MACEDO T VISIT PSC 15 MINUTES OFFICE 45487 [facility] REECE MOORE 6 6 PHYSICIAN JOHN T VISIT S GROUP 25 MINUTES EMERGENCY 53661 LESLIE COLE 6 6 PHYSICIAN Bonita Urbina PLLC T VISIT HIGH/URGE NT SEVERITY HOSPITAL TOM - 6 6 [facility] T OFFICE 64790 [facility] [place] OUTPATIEN 6 6 PHYSICIAN KATHERINE STRANGE 20 S GROUP MINUTES EMERGENCY 58938 LESLIE WHYTE 6 6 PHYSICIAN MI HONGMEN S PLLC T VISIT HIGH/URGE NT SEVERITY EMERGENCY 09728 LESLIE LEMUS 6 6 PHYSICIAN FAIZA FILIPPO S PLLC T VISIT MODERATE SEVERITY EMERGENCY 85538 LESLIE COLE 6 6 PHYSICIAN Boniat MICHEL HONGMEN S PLLC T VISIT MODERATE SEVERITY OFFICE 28343 Pravin COLLAZO OUTPATIEN 6 6 [facility] Lakhani VISIT PSC 15 MINUTES HOSPITAL TOM - 6 6 [facility] OUTPATIEN INC T OFFICE 55415 Pravin GUERIN OUTPATIEN 6 6 [facility] Lakhani NEW 45 PSC MINUTES EMERGENCY 43394 LESLIE WHYTE DEPT 6 6 PHYSICIAN MI VISIT S PLLC HIGH SEVERITY& THREAT FUNCJ EMERGENCY 35181 LESLIE WHYTE 6 6 PHYSICIAN MI HONGMEN S PLLC T VISIT MODERATE SEVERITY EMERGENCY 12615 TOM 6 6 [facility] T VISIT LIMITED/M INOR PROB EMERGENCY 87000 LESLIE WHYTE 6 6 PHYSICIAN MI DEPARTMEN S PLLC T VISIT LOW/MODER SEVERITY HOSPITAL TOM - 6 6 [facility] OUTPATIEN INC T HOSPITAL TOM - 6 6 [facility] OUTPATIEN INC T EMERGENCY 85361 LESLIE WHYTE 6 6 PHYSICIAN MI DEPARTMEN S PLL[facility] T VISIT MODERATE SEVERITY EMERGENCY 80800 TOM 6 6 [facility] T VISIT LOW/MODER SEVERITY EMERGENCY 55206 LESLIE WHYTE 6 6 PHYSICIAN MI DEPARTMEN S, PLLC T VISIT MODERATE SEVERITY HOSPITAL TOM - 6 6 [facility] OUTPATIEN INC T EMERGENCY 75287 TOM 6 6 [facility] T VISIT LOW/MODER SEVERITY EMERGENCY 80191 LESLIE WHYTE 6 6 PHYSICIAN [facility] T VISIT MODERATE SEVERITY HOSPITAL TOM - 6 6 [facility] OUTPATIEN INC T EMERGENCY 63061 TOM 6 6 [facility] T VISIT LOW/MODER SEVERITY EMERGENCY 36568 LESLIE LEMUS 6 6 PHYSICIAN [facility] T VISIT MODERATE SEVERITY EMERGENCY 29867 LESLIE LEMUS 6 6 PHYSICIAN [facility] T VISIT HIGH/URGE NT SEVERITY EMERGENCY [id number] LESLIE WHYTE 6 6 PHYSICIAN [facility] S, [facility] T VISIT HIGH/URGE NT SEVERITY EMERGENCY 68713 TOM 6 6 [facility] T VISIT MODERATE [facility]VERITY HOSPITAL TOM - 6 6 [facility] OUTPATIEN [facility] TOM [facility] 6 6 [facility] OUTPATIEN [facility] T EMERGENCY 05264 TOM 6 6 [facility] T VISIT LOW/MODER SEVERITY OFFICE [id number] [facility] 6 6 PHYSICIAN JOHN T VISIT S GROUP 15 MINUTES EMERGENCY 32234 TOM 6 6 [facility] T VISIT LOW/MODER SEVERITY EMERGENCY 18732 LESLIE COLE DEPT 6 6 PHYSICIAN U ANAND VISIT S, [facility] HIGH [facility]VERITY& THREAT [facility] TOM - 6 6 [facility] OUTPATIEN [facility] TOM [facility] 6 6 [facility] OUTPATIEN INC T EMERGENCY 44469 LESLIE WHYTE 6 6 PHYSICIAN [facility] S [facility] T VISIT HIGH/URGE NT SEVERITY EMERGENCY 65366 TOM 6 6 [facility] T VISIT LOW/MODER SEVERITY EMERGENCY 70056 TOM 6 6 [facility] T [facility]ISIT LIMITED/M INOR PROB HOSPITAL TOM - 6 6 [facility] OUTPATIEN [facility] T EMERGENCY 25195 LESLIE WHYTE 6 6 PHYSICIAN [facility] S, [facility] T VISIT MODERATE SEVERITY EMERGENCY 23256 LESLIE WHYTE 6 6 PHYSICIAN [facility] S, [facility] T VISIT HIGH/URGE NT SEVERITY HOSPITAL TOM - 6 6 [facility] OUTPATIEN [facility] EMERGENCY 78740 TOM 6 6 [facility] T VISIT LIMITED/M INOR PROB EMERGENCY 76720 LESLIE BLOCK, 6 6 PHYSICIAN [facility] S, [facility] T VISIT HIGH/URGE NT SEVERITY HOSPITAL TOM - 6 6 [facility] OUTPATIEN [facility] EMERGENCY 61415 TOM 6 6 [facility] T VISIT LOW/MODER SEVERITY EMERGENCY 96710 LESLEI WHYTE 6 6 PHYSICIAN [facility] S, [facility] T VISIT MODERATE SEVERITY EMERGENCY 84004 TOM 6 6 [facility] T VISIT LOW/MODER SEVERITY HOSPITAL TOM - 6 6 [facility] OUTPATIEN [facility] TOM [facility] 6 6 [facility] INPATIENT INC OFFICE [id number] [facility] 6 6 PHYSICIAN JOHN T VISIT S GROUP 15 MINUTES HOSPITAL TOM [facility] 6 6 [facility] OUTPATIEN [facility] TOM - 6 6 [facility] OUTPATIEN [facility] TOM [facility] 6 6 [facility] OUTPATIEN [facility] T EMERGENCY 33200 LESLIE WHYTE 6 6 [facility]ICIAN [facility] T VISIT HIGH/URGE NT SEVERITY EMERGENCY 12749 TOM 6 6 [facility] T VISIT MODERATE SEVERITY HOSPITAL TOM - 6 6 [facility] OUTPATIEN INC T HOSPITAL TOM [facility] 6 6 [facility] OUTPATIEN INC T HOSPITAL TOM [facility] 5 5 [facility] OUTPATIEN INC T EMERGENCY 49332 LESLIE WHYTE 5 5 PHYSICIAN [facility] T VISIT HIGH/URGE NT SEVERITY EMERGENCY 05414 TOM 5 5 [facility] T VISIT LOW/MODER SEVERITY EMERGENCY 69055 LESLIE MCGOWAN 5 5 [facility] T VISIT HIGH/URGE NT SEVERITY EMERGENCY 29479 TOM 5 5 [facility] T VISIT MODERATE [facility]VERITY HOSPITAL TOM - 5 5 [facility] OUTPATIEN [facility] TOM [facility] 5 5 [facility] OUTPATIEN [facility] T EMERGENCY 01278 TOM 5 5 [facility] T VISIT LOW/MODER SEVERITY EMERGENCY 71414 LESLIE MENDEZ 5 5 [facility] T VISIT HIGH/URGE NT SEVERITY EMERGENCY 94632 TOM 5 5 [facility] T VISIT LOW/MODER SEVERITY HOSPITAL TOM - 5 5 [facility] OUT[facility] INC T
--- OUTSIDE RECORDS SUMMARY | 2017-07-10 01:12 | External Medical Summary Rpt | CCD ---
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 TOM - 6 6 [facility] OUTPATIEN [facility] T OFFICE 99113 A C [facility] OUTPATIEN 6 6 AIXA MACEDO T VISIT PSC 15 MINUTES OFFICE 11314 [facility] REECE MOORE 6 6 PHYSICIAN JOHN T VISIT S GROUP 25 MINUTES EMERGENCY 45587 LESLIE COLE 6 6 PHYSICIAN Bonita Urbina PLLC T VISIT HIGH/URGE NT SEVERITY HOSPITAL TOM - 6 6 [facility] OUTPAT[facility]EN [facility] T OFFICE 33241 [facility] [place] OUTPATIEN 6 6 PHYSICIAN KATHERINE STRANGE 20 S GROUP MINUTES EMERGENCY 94754 LESLIE WHYTE 6 6 PHYSICIAN MI HONGMEN S PLLC T VISIT HIGH/URGE NT SEVERITY EMERGENCY 92116 LESLIE LEMUS 6 6 PHYSICIAN FAIZA FILIPPO S PLLC T VISIT MODERATE SEVERITY EMERGENCY 22272 LESLIE COLE 6 6 PHYSICIAN Bonita MICHEL HONGMEN S PLLC T VISIT MODERATE SEVERITY OFFICE 55363 Pravin COLLAZO OUTPATIEN 6 6 [facility] Lakhani VISIT PSC 15 MINUTES HOSPITAL TOM - 6 6 [facility] OUTPATIEN INC T OFFICE 02002 Pravin GUERIN OUTPATIEN 6 6 A[facility] Lakhani NEW 45 PSC MINUTES EMERGENCY 49592 LESLIE WHYTE DEPT 6 6 PHYSICIAN MI VISIT S PLLC HIGH SEVERITY& THREAT FUNCJ EMERGENCY 81769 LESLIE WHYTE 6 6 PHYSICIAN MI HONGMEN S PLLC T VISIT MODERATE SEVERITY EMERGENCY 25513 TOM 6 6 [facility] V[facility]/M INOR PROB EMERGENCY 84934 LESLIE WHYTE 6 6 PHYSICIAN MI DEPARTMEN S PLLC T VISIT LOW/MODER SEVERITY HOSPITAL TOM - 6 6 [facility] OUTPATIEN INC T HOSPITAL TOM - 6 6 [facility] OUTPATIEN INC T EMERGENCY 65336 LESLIE WHYTE 6 6 PHYSICIAN MI DEPARTMEN S PLLC T VISIT MODERATE SEVERITY EMERGENCY 14961 TOM 6 6 [facility]ISIT LOW/MODER SEVERITY EMERGENCY 02341 LESLIE WHYTE 6 6 PHYSICIAN MI DEPARTMEN S, PLLC T VISIT MODERATE SEVERITY HOSPITAL TOM - 6 6 [facility] OUTPATIEN INC T EMERGENCY 78377 TOM 6 6 [facility]ISIT LOW/MODER SEVERITY EMERGENCY 37833 LESLIE WHYTE 6 6 PHYSICIAN [facility] T VISIT MODERATE SEVERITY HOSPITAL TOM - 6 6 [facility] OUTPATIEN INC T EMERGENCY 76971 TOM 6 6 [facility] T VISIT LOW/MODER SEVERITY EMERGENCY 63107 LESLIE LEMUS 6 6 [facility]YSICIAN [facility], [facility] T VISIT MODERATE SEVERITY EMERGENCY 08093 LESLIE LEMUS 6 6 PHYSICIAN [facility], [facility] T VISIT HIGH/URGE NT SEVERITY EMERGENCY 40255 LESLIE WHYTE 6 6 PHYSICIAN [facility] S, [facility] T VISIT HIGH/URGE NT SEVERITY EMERGENCY 32885 TOM 6 6 [facility] T VISIT MODERATE SEVERITY HOSPITAL TOM - 6 6 [facility] OUTPATIEN [facility] TOM - 6 6 [facility] OUTPATIEN [facility] T EMERGENCY 66510 TOM 6 6 [facility] T VISIT LOW/MODER SEVERITY OFFICE 74252 [facility] PHYSICIAN JOHN T VISIT S GROUP 15 MINUTES EMERGENCY 31688 TOM 6 6 [facility] T VISIT LOW/MODER SEVERITY EMERGENCY 13176 LESLIE COLE DEPT 6 6 PHYSICIAN U ANAND VISIT S, [facility] HIGH [facility]VERITY& THREAT [facility], [facility] TOM - 6 6 [facility] TOM - 6 6 [facility] OUTPATIEN INC T EMERGENCY 71953 LESLIE WHYTE 6 6 PHYSICIAN [facility] T VISIT HIGH/URGE NT SEVERITY EMERGENCY 15598 [facility] 6 [facility] T VISIT LOW/MODER SEVERITY EMERGENCY 92321 [facility] 6 6 [facility] T VISIT LIMITED/M INOR PROB HOSPITAL TOM - 6 6 [facility] OUTPATIEN [facility] T EMERGENCY 72183 LESLIE WHYTE 6 6 PHYSICIAN [facility] S, [facility] T VISIT MODERATE SEVERITY EMERGENCY 68071 LESLIE WHYTE 6 6 PHYSICIAN [facility] S, [facility] T VISIT HIGH/URGE NT SEVERITY HOSPITAL TOM - 6 6 [facility]PAT[facility]EN [facility] EMERGENCY 40061 TOM 6 6 [facility] T VISIT LIMITED/M INOR PROB EMERGENCY 10275 LESLIE BLOCK, 6 6 PHYSICIAN [facility] S, [facility] T VISIT HIGH/URGE NT SEVERITY HOSPITAL TOM - 6 6 [facility] OUTPATIEN [facility] EMERGENCY 09802 TOM 6 6 [facility] T VISIT LOW/MODER SEVERITY EMERGENCY 16241 LESLIE WHYTE 6 6 PHYSICIAN [facility] S, [facility] T VISIT MODERATE SEVERITY EMERGENCY 52610 TOM 6 6 [facility] T VISIT LOW/MODER SEVERITY HOSPITAL TOM - 6 6 [facility] OUT[facility]IEN [facility] TOM - 6 6 [facility] INPATIENT INC OFFICE [facility]3917 [facility] 6 6 PHYSICIAN JOHN T VISIT S GROUP 15 MINUTES HOSPITAL TOM - 6 6 [facility] TOM - 6 6 [facility] TOM - 6 6 [facility] OUTPATIEN [facility] T EMERGENCY 36226 LESLIE WHYTE 6 6 PHYSICIAN [facility] DEPARTMEN S, PLLC T VISIT HIGH/URGE NT SEVERITY EMERGENCY 27766 TOM 6 6 [facility] DEPART[facility] INC T VISIT MODERATE SEVERITY HOSPITAL TOM - 6 6 [facility] OUTPATIEN INC T HOSPITAL [facility]OM [facility] 6 6 [facility] OUTPATIEN INC T HOSPITAL [facility]OM - 5 5 [facility] OUTPATIEN INC T EMERGENCY 30189 LESLIE WHYTE 5 5 [facility]IC[facility] DEPART[facility], PLL[facility] T VISIT HIGH/URGE NT SEVERITY EMERGENCY 59175 TOM 5 5 [facility]IS[facility] LOW/MODER SEVERITY EMERGENCY 49690 LESLIE MCGOWAN 5 5 PHYSICIAN DEPARTMEN S, PLL[facility] T VISIT HIGH/URGE NT SEVERITY EMERGENCY 16164 TOM 5 5 [facility] DEPARTMEN INC T VISIT MODERATE SEVERITY HOSPITAL TOM - 5 5 [facility] TOM - 5 5 [facility] OUTPATIEN [facility] T EMERGENCY 89731 TOM 5 5 [facility]IS[facility] LOW/MODER SEVERITY EMERGENCY 17945 LESLIE MENDEZ 5 5 PHYSICIAN [facility]PART[facility] T VISIT HIGH/URGE NT SEVERITY EMERGENCY 28607 TOM 5 5 [facility] DEPART[facility] INC T VISIT LOW/MODER SEVERITY HOSPITAL TOM - 5 5 [facility] OUTPATIEN INC T
[2017-07-10 01:17] LABS: AMPHETAMINES/METAMPHETAMINES NEGATIVE ng/mL (<1000)
--- OUTSIDE RECORDS SUMMARY | 2017-07-10 01:18 | External Medical Summary Rpt | CCD ---
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 PHYSICIAN VISIT S, [facility] HIGH SEVERITY& THREAT [facility] TOM - 7 7 [facility] OUTPATIEN INC T EMERGENCY 19375 LESLIE WHYTE 7 7 PHYSICIAN DEPARTMEN S, [facility] T VISIT HIGH/URGE NT SEVERITY OFFICE 36928 Pravin MOORE 7 7 A[facility] SHAW T VISIT PSC 15 MINUTES EMERGENCY 44382 LESLIE COLE 7 7 PHYSICIAN U DEPARTMEN S, PLLC T VISIT HIGH/URGE NT SEVERITY OFFICE 36085 TOM OUTPATIEN 7 7 [facility] T VISIT 5 INC MINUTES HOSPITAL TOM - 7 7 [facility] OUTPATIEN INC T OFFICE 12111 A C KILPELA OUTPATIEN 7 7 [facility] SHAW T VISIT PSC 15 MINUTES OFFICE 59084 A C KILPELA OUTPATIEN 7 7 [facility] SHAW T VISIT PSC 15 MINUTES HOSPITAL TOM - 7 7 [facility] OUTPATIEN [facility] T HOSPITAL TOM - 7 7 [facility] OUTPATIEN INC T HOSPITAL TOM - 7 7 [facility] OUTPATIEN INC T OFFICE 71380 [facility] SAIGE CONSULTAT 7 7 PHYSICIAN ION S GROUP NEW/ESTAB PATIENT 30 MIN HOSPITAL TOM - 6 6 [facility] OUTPATIEN INC T EMERGENCY 16461 LESLIE WHYTE 6 6 PHYSICIAN [facility] T VISIT MODERATE SEVERITY EMERGENCY 28352 LESLIE WHYTE 6 6 PHYSICIAN [facility] T VISIT HIGH/URGE NT SEVERITY OFFICE 43120 [facility] REECE MOORE 6 6 PHYSICIAN JOHN T VISIT S GROUP 15 MINUTES HOSPITAL TOM - 6 6 [facility] OUTPATIEN INC T OFFICE 90523 A C KILPELA OUTPATIEN 6 6 AIXA MACEDO T VISIT PSC 15 MINUTES OFFICE 03524 [facility] REECE MOORE 6 6 PHYSICIAN JOHN T VISIT S GROUP 25 MINUTES EMERGENCY 87333 LESLIE COLE 6 6 PHYSICIAN U ANAND [facility] T VISIT HIGH/URGE NT SEVERITY OFFICE 46340 [facility] MATILDE MOORE 6 6 PHYSICIAN KATHERINE T NEW 20 S GROUP MINUTES HOSPITAL TOM - 6 6 [facility] [place] [place] [facility] OUTPATIEN INC T EMERGENCY 52838 LESLIE WHYTE 6 6 PHYSICIAN [place] [facility] T VISIT HIGH/URGE NT SEVERITY EMERGENCY 44180 LESLIE LEMUS 6 6 PHYSICIAN FAIZA [facility] T VISIT MODERATE SEVERITY EMERGENCY 25348 LESLIE COLE 6 6 PHYSICIAN Bonita MICHEL [facility] T VISIT MODERATE SEVERITY OFFICE 55838 Pravin COLLAZO OUTPATIFRANK 6 6 A[facility] Lakhani VISIT PSC 15 MINUTES HOSPITAL TOM - 6 6 [facility] OUTPATIEN [facility] T OFFICE 32018 Pravin GUERIN OUTPATIEN 6 6 [facility] Lakhani [facility] 45 PSC MINUTES EMERGENCY 18185 LESLIE WHYTE DEPT 6 6 PHYSICIAN [facility] VISIT S [facility] HIGH SEVERITY& THREAT FUNCJ EMERGENCY 53798 LESLIE WHYTE 6 6 PHYSICIAN [facility] T VISIT MODERATE SEVERITY EMERGENCY 34459 [facility] 6 6 [facility] T VISIT LIMITED/M INOR PROB EMERGENCY 05990 LESLIE WHYTE 6 6 PHYSICIAN [facility] T VISIT LOW/MODER SEVERITY HOSPITAL TOM - 6 6 [facility] [place] [place] [facility] OUTPATIEN INC T HOSPITAL TOM [facility] 6 6 [facility] [place] [place] [facility] OUTPATIEN INC T EMERGENCY 41925 TOM 6 6 [facility] [place] [place] [facility] DEPARTMEN INC T VISIT LOW/MODER SEVERITY EMERGENCY 74321 LESLIE WHYTE 6 6 PHYSICIAN [facility] T VISIT MODERATE SEVERITY EMERGENCY 11347 TOM 6 6 [facility] [place] [place] [facility] DEPARTMEN INC T VISIT LOW/MODER SEVERITY HOSPITAL TOM - 6 6 [facility] [place] [place] [facility] OUTPATIEN INC T EMERGENCY 65765 LESLIE WHYTE 6 6 [facility]ICIAN [facility] T VISIT MODERATE SEVERITY EMERGENCY 98997 LESLIE WHYTE 6 6 [facility] T VISIT MODERATE SEVERITY EMERGENCY 11617 LESLIE LEMUS 6 6 PHYSICIAN FAIZA [facility] S [facility] T VISIT MODERATE SEVERITY HOSPITAL TOM - 6 6 [facility] [place] [place] [facility] OUTPATIEN INC T EMERGENCY 81619 TOM 6 6 [facility] [place] [place] [facility] DEPARTMEN INC T VISIT LOW/MODER SEVERITY EMERGENCY 92929 LESLIE LEMUS 6 6 [facility]ICIAN [facility] T VISIT HIGH/URGE NT SEVERITY EMERGENCY 37795 TOM 6 6 [facility] [place] [place] [facility] DEPARTMEN INC T VISIT MODERATE SEVERITY EMERGENCY 36386 LESLIE WHYTE 6 6 PHYSICIAN [facility] T VISIT HIGH/URGE NT SEVERITY HOSPITAL TOM - 6 6 [facility] [place] [place] [facility] OUTPATIEN INC T EMERGENCY 74103 TOM 6 6 [facility] [place] [place] [facility] DEPARTMEN INC T VISIT LOW/MODER SEVERITY HOSPITAL TOM - 6 6 [facility] OUTPATIEN INC T OFFICE 95235 [facility] 6 6 PHYSICIAN JOHN T VISIT S GROUP 15 MINUTES EMERGENCY 53450 TOM 6 6 [facility] [place] [place] [facility] DEPARTMEN INC T VISIT LOW/MODER SEVERITY EMERGENCY 35628 LESLIE COLE DEPT 6 6 PHYSICIAN Bonita MICHEL [facility] HIGH [facility]VERITY& [facility] TOM - 6 6 [facility] [place] [place] [facility] OUTPATIEN INC T EMERGENCY 64199 TOM 6 6 [facility] [place] [place] [facility] DEPARTMEN INC T VISIT LOW/MODER SEVERITY EMERGENCY 53269 LESLIE WHYTE 6 6 PHYSICIAN [facility], [facility] T VISIT HIGH/URGE NT SEVERITY HOSPITAL TOM - 6 6 [facility] - 6 6 [facility] 05893 LESLIE WHYTE 6 6 PHYSICIAN [facility], [facility] T VISIT MODERATE SEVERITY EMERGENCY [address] TOM [address] [facility] T VISIT LIMITED/M INOR PROB EMERGENCY 34116 LESLIE WHYTE 6 6 PHYSICIAN [facility], [facility] T VISIT HIGH/URGE NT SEVERITY EMERGENCY [address] TOM [address] [facility] T VISIT LIMITED/M INOR PROB HOSPITAL TOM - 6 6 [facility] TOM - 6 6 [facility] 44408 LESLIE BLOCK, 6 6 PHYSICIAN [facility], [facility] T VISIT HIGH/URGE NT SEVERITY EMERGENCY 95801 TOM 6 6 [facility] VISIT LOW/MODER SEVERITY EMERGENCY 9[address]23 TOM [address] [facility] T VISIT LOW/MODER SEVERITY HOSPITAL TOM - 6 6 [facility] 64609 LESLIE WHYTE 6 6 PHYSICIAN [facility], [facility] T VISIT MODERATE SEVERITY HOSPITAL TOM - 6 6 [facility] INPATIENT [facility] HOSPITAL TOM - 6 6 [facility] OFF[facility] 14346 [facility] R[facility]CE [facility] 6 6 PHYSICIAN JOHN T VISIT S GROUP 15 MINUTES HOSPITAL TOM - 6 6 [facility] 18129 LESLIE WHYTE 6 6 PHYSICIAN [facility] T VISIT HIGH/URGE NT SEVERITY EMERGENCY 59020 TOM 6 6 [facility] [place] [place] [facility] T VISIT MODERATE [facility]VERITY HOSPITAL TOM - 6 6 [facility] [place] [place] [facility] OUTPATIEN [facility] HOSPITAL TOM [facility] 6 6 [facility] [place] [place] [facility] OUTPATIEN [facility] HOSPITAL TOM [facility] 6 6 [facility] [place] [place] [facility] OUTPATIEN [facility] HOSPITAL TOM [facility] 5 5 [facility] [place] [place] [facility] OUTPATIEN [facility] EMERGENCY 95022 LESLIE WHYTE 5 5 PHYSICIAN [facility], [facility] T VISIT HIGH/URGE NT SEVERITY EMERGENCY [address] TOM [address] [facility] T VISIT LOW/MODER SEVERITY HOSPITAL TOM - 5 5 [facility] EMERGENCY 58311 LESLIE MCGOWAN 5 5 PHYSICIAN [facility] T VISIT HIGH/URGE NT SEVERITY EMERGENCY [address] TOM [address] [facility] T VISIT MODERATE SEVERITY EMERGENCY [address] TOM [address] [facility] T VISIT LOW/MODER SEVERITY EMERGENCY 13242 LESLIE MENDEZ 5 5 [facility] T VISIT HIGH/URGE NT SEVERITY HOSPITAL TOM - 5 5 [facility] [place] [place] [facility] OUTPATIEN [facility] HOSPITAL TOM [facility] 5 5 [facility] [place] [place] [facility] OUTPATIEN [facility] T EMERGENCY [address] TOM [address] [facility] T VISIT LOW/MODER SEVERITY
--- OUTSIDE RECORDS SUMMARY | 2017-07-10 01:18 | External Medical Summary Rpt | CCD ---
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 [facility] OUTPATIEN INC T OFFICE [address] [facility] SAIGE CONSULTAT 7 7 PHYSICIAN ION S GROUP NEW/ESTAB PATIENT 30 MIN HOSPITAL TOM - 6 6 [facility] OUTPATIEN INC T EMERGENCY 57011 LESLIE WHYTE 6 6 PHYSICIAN [facility] T VISIT MODERATE SEVERITY EMERGENCY 51903 LESLIE WHYTE 6 6 PHYSICIAN [facility] S[facility] T VISIT HIGH/URGE NT SEVERITY OFFICE [address] [facility] REECE MOORE 6 6 PHYSICIAN JOHN T VISIT S GROUP 15 MINUTES HOSPITAL TOM - 6 6 MEM [facility] OUTPATIEN INC T OFFICE 29955 A C KILPELA OUTPATIEN 6 6 AIXA MACEDO T VISIT PSC 15 MINUTES OFFICE [address] [facility] REECE MOORE 6 6 PHYSICIAN JOHN T VISIT S GROUP 25 MINUTES EMERGENCY 63293 LESLIE COLE 6 6 PHYSICIAN U ANAND [facility] S, PLLC T VISIT HIGH/URGE NT SEVERITY OFFICE [address] [facility] MATILDE MOORE 6 6 PHYSICIAN KATHERINE T NEW 20 S GROUP MINUTES HOSPITAL TOM - 6 6 [facility] OUTPATIEN INC T EMERGENCY 16565 LESLIE WHYTE 6 6 PHYSICIAN MI [facility] S [facility] T VISIT HIGH/URGE NT SEVERITY EMERGENCY 60349 LESLIE LEMUS 6 6 PHYSICIAN FAIZA [facility] S [facility] T VISIT MODERATE SEVERITY EMERGENCY 16596 LESLIE COLE 6 6 PHYSICIAN Bonita MICHEL [facility] S [facility] T VISIT MODERATE SEVERITY OFFICE 08121 Pravin COLLAZO OUTPATIFRANK 6 6 A[place] Lakhani VISIT PSC 15 MINUTES HOSPITAL TOM - 6 6 [facility] OUTPATIEN [facility] T OFFICE 40596 Pravin GUERIN OUTPATIEN 6 6 [place] Lakhani [facility] 45 PSC MINUTES EMERGENCY 01057 LESLIE WHYTE DEPT [address] [facility] VISIT S [facility] HIGH SEVERITY& THREAT FUNCJ EMERGENCY 88252 LESLIE WHYTE 6 6 PHYSICIAN [facility] S [facility] T VISIT MODERATE SEVERITY EMERGENCY 82099 [facility] 6 [facility] T VISIT LIMITED/M INOR PROB EMERGENCY 89319 LESLIE WHYTE 6 6 PHYSICIAN [facility] S [facility] T VISIT LOW/MODER SEVERITY HOSPITAL TOM - 6 6 [facility] OUTPATIEN INC T HOSPITAL TOM - 6 6 [facility] OUTPATIEN INC T EMERGENCY 53306 TOM 6 6 [facility] DEPARTMEN INC T VISIT LOW/MODER SEVERITY EMERGENCY 77527 LESLIE WHYTE 6 6 PHYSICIAN [facility] S [facility] T VISIT MODERATE SEVERITY EMERGENCY 47937 TOM 6 6 [facility] DEPARTMEN INC T VISIT LOW/MODER SEVERITY HOSPITAL TOM - 6 6 [facility] OUTPATIEN INC T EMERGENCY 28101 LESLIE WHYTE 6 6 [facility]ICIAN [facility] T VISIT MODERATE SEVERITY EMERGENCY 19214 LESLIE WHYTE 6 6 [facility]IAN [facility] T VISIT MODERATE SEVERITY EMERGENCY 82999 LESLIE LEMUS 6 6 PHYSICIAN FAIZA BARKLEY [address] [facility] T VISIT MODERATE SEVERITY HOSPITAL TOM - 6 6 [facility] OUTPATIEN INC T EMERGENCY 13013 TOM 6 6 [facility] DEPARTMEN INC T VISIT LOW/MODER SEVERITY EMERGENCY 39597 LESLIE LEMUS 6 6 [facility]YSICIAN [facility] T VISIT HIGH/URGE NT SEVERITY EMERGENCY 84090 TOM 6 6 [facility] DEPARTMEN INC T VISIT MODERATE SEVERITY EMERGENCY 94144 LESLIE WHYTE 6 6 PHYSICIAN [facility] S [facility] T VISIT HIGH/URGE NT SEVERITY HOSPITAL TOM - 6 6 [facility] OUTPATIEN INC T EMERGENCY 94003 TOM 6 6 [facility] DEPARTMEN INC T VISIT LOW/MODER SEVERITY HOSPITAL TOM - 6 6 [facility] OUTPATIEN INC T [facility]ICE [facility]019 [facility] PH[facility]ICIAN JOHN T VISIT S GROUP 15 MINUTES EMERGENCY 79558 TOM 6 6 [facility] DEPARTMEN INC T VISIT LOW/MODER SEVERITY EMERGENCY 70159 LESLIE COLE DEPT 6 6 PHYSICIAN Bonita MICHEL [facility] HIGH SEVER[facility]& THREAT [facility] HOSP[facility] TOM - 6 6 [facility] OUTPATIEN INC T EMERGENCY 08972 TOM 6 6 [facility] DEPARTMEN INC T VISIT LOW/MODER SEVERITY EMERGENCY 11257 LESLIE WHYTE 6 6 PHYSICIAN [facility] S, [facility] T VISIT HIGH/URGE NT SEVERITY HOSPITAL TOM - 6 6 [facility] TOM - 6 6 [facility] EMERGENCY 28733 LESLIE WHYTE 6 6 PHYSICIAN [facility] S, [facility] T VISIT MODERATE SEVERITY EMERGENCY 76050 TOM 6 6 [facility] T VISIT LIMITED/M INOR PROB EMERGENCY 08325 LESLIE WHYTE 6 6 PHYSICIAN [facility], [facility] T VISIT HIGH/URGE NT SEVERITY EMERGENCY 19973 TOM 6 6 [facility] T VISIT LIMITED/M INOR PROB HOSPITAL TOM - 6 6 [facility] OUT[facility]CLAREN [facility] TOM - 6 6 [facility] EMERGENCY 52599 LESLIE BLOCK, 6 6 PHYSICIAN [facility], [facility] T VISIT HIGH/URGE NT SEVERITY EMERGENCY 66699 TOM 6 6 [facility] VISIT LOW/MODER SEVERITY EMERGENCY 61620 TOM 6 6 [facility] T VISIT LOW/MODER SEVERITY HOSPITAL TOM - 6 6 [facility] 08835 LESLIE WHYTE 6 6 PHYSICIAN [facility], [facility] T VISIT MODERATE SEVERITY HOSPITAL TOM - 6 6 [facility] INPATIENT [facility] HOSPITAL TOM - 6 6 [facility] OFFICE [address] [facility] REECE [facility]IANGJENNIE [facility] CENTERFRANK 6 6 PHYSICIAN JOHN T VISIT S GROUP 15 MINUTES HOSPITAL TOM - 6 6 [facility] 95266 LESLIE WHYTE 6 6 PHYSICIAN [facility] S[facility] T VISIT HIGH/URGE NT SEVERITY EMERGENCY 47077 TOM 6 6 [facility] T VISIT MODERATE SEVERITY HOSPITAL TOM - 6 6 [facility] OUTPATIEN [facility] HOSPITAL TOM [facility] 6 6 [facility] OUTPATIEN [facility] HOSPITAL TOM [facility] 6 6 [facility] OUTPATIEN [facility] HOSPITAL TOM - 5 5 [facility] OUTPATIEN [facility] EMERGENCY 88235 LESLIE WHYTE 5 5 PHYSICIAN [facility] S, [facility] T VISIT HIGH/URGE NT SEVERITY EMERGENCY 72483 TOM 5 5 [facility] T VISIT LOW/MODER SEVERITY HOSPITAL TOM - 5 5 [facility] EMERGENCY 84301 LESLIE MCGOWAN 5 5 PHYSICIAN [facility] S[facility] T VISIT HIGH/URGE NT SEVERITY EMERGENCY 66768 TOM 5 5 [facility] T VISIT MODERATE SEVERITY EMERGENCY 94276 TOM 5 5 [facility] T VISIT LOW/MODER SEVERITY EMERGENCY 10127 LESLIE MENDEZ 5 5 PHYSICIAN [facility] T VISIT HIGH/URGE NT SEVERITY HOSPITAL TOM - 5 5 [facility] OUTPATIEN [facility] HOSPITAL TOM - 5 5 [facility] OUTPATIEN [facility] T EMERGENCY 91029 TOM 5 5 [facility] T VISIT LOW/MODER SEVERITY
--- OUTSIDE RECORDS SUMMARY | 2017-07-10 01:19 | External Medical Summary Rpt | CCD ---
Demographics Preferred Language [place] Marital Status Unknown Mandaeism Affiliation Unknown Race Unknown Ethnic Group Unknown Author Author , JESUS LEE Address Unknown Phone Immunization Unable to retrieve immunization data due to connection failure with Immunization Registry. Please try again later.
--- OUTSIDE RECORDS SUMMARY | 2017-07-10 01:19 | External Medical Summary Rpt | CCD ---
Demographics Preferred Language Guamanian Marital Status Unknown Uatsdin Affiliation Unknown Race Unknown Ethnic Group Unknown Author Author , JESUS LEE Address Unknown Phone Immunization Unable to retrieve immunization data due to connection failure with Immunization Registry. Please try again later.
--- OUTSIDE RECORDS SUMMARY | 2017-07-10 01:20 | External Medical Summary Rpt ---
Author Author [employer], [employer] Organization [employer] Address Unknown Phone Unavailable Results Comprehensive metabolic 2000 panel in Serum or Plasma Observa Value Referen Units Interpr Notes Date tion ce etation Range Albumin/G 1.1 - 1.8 No Low No Oct 14 lobulin informati informati 2017 6:45 [Mass on in on in PM ratio] in source source Serum or data data Plasma Albumin 3.4 - 5.0 gm/dL Low No Oct 14 [Mass/vol informati 2017 6:45 ume] in on in PM Serum or source Plasma data Alkaline 46 - 116 U/L High No Oct 14 phosphata informati 2017 6:45 se on in PM [Enzymati source c data activity/ volume] in Serum or Plasma Bilirubin 0.2 - 1.0 mg/dL Low No Oct 14 .total informati 2017 6:45 [Mass/vol on in PM ume] in source Serum or data Plasma Urea 7 - 18 mg/dL Normal No Oct 14 nitrogen informati 2017 6:45 [Mass/vol on in PM ume] in source Serum or data Plasma Calcium 8.5 - mg/dL Low No Oct 14 [Mass/vol 10.1 informati 2017 6:45 ume] in on in PM Serum or source Plasma data Chloride 98 - 107 mmoL/L Normal No Oct 14 [Moles/vo informati 2017 6:45 lume] in on in PM Serum or source Plasma data Carbon 21.0 - mmoL/L Normal No Oct 14 dioxide, 32.0 informati 2017 6:45 total on in PM [Moles/vo source lume] in data Serum or Plasma Creatinin 0.55 - mg/dL Low No Oct 14 e 1.02 informati 2017 6:45 [Mass/vol on in PM ume] in source Serum or data Plasma Creatinin 50 - 200 ML/MIN High No Oct 14 e renal informati 2017 6:45 clearance on in PM source predicted data by Cockcroft -Gault formula Estimated 59- ML/MIN No REFERENCE Oct 14 informati RANGE: 2017 6:45 glomerula on in >60 PM r source ML/MIN/1. filtratio data 73 SQUARE n rate METERSIf (GF this patient is -A merican, then multiply theresult by 1.210. Globulin 1.3 - 3.2 gm/dL High No Jun 14 [Mass/vol informati 2016 6:45 ume] in on in PM Serum source data Glucose 74 - 106 mg/dL Normal No Jun 14 [Mass/vol informati 2016 6:45 ume] in on in PM Serum or source Plasma data Potassium 3.5 - 5.1 mmoL/L Normal MAY BE Jun 26 ELEVATED 2016 6:45 [Moles/vo DUE TO PM lume] in SLIGHT Serum or HEMOLYSIS Plasma Sodium 136 - 145 mmoL/L Normal No Jun 14 [Moles/vo informati 2017 6:45 lume] in on in PM Serum or source Plasma data Aspartate 15 - 37 U/L Normal MAY BE Jun 26 ELEVATED 2016 6:45 aminotran DUE TO PM sferase SLIGHT [Enzymati HEMOLYSIS c activity/ volume] in Serum or Plasma Alanine 12 - 78 U/L Normal 06/28/17 Jun 26 aminotran 1115:SGPT 2017 6:45 sferase PM [Enzymati previousl c y activity/ reported volume] as: 0 L in Serum U/L or Plasma Protein 6.4 - 8.2 gm/dL Low No Jun 14 [Mass/vol informati 2016 6:45 ume] in on in PM Serum or source Plasma data Comprehensive metabolic 2000 panel in Serum or Plasma Observa Value Referen Units Interpr Notes Date tion ce etation Range Albumin/G 1.1 - 1.8 No Low No Jun 26 lobulin informati informati 2016 6:45 [Mass on in on in PM ratio] in source source Serum or data data Plasma Albumin 3.4 - 5.0 gm/dL Low No Jun 26 [Mass/vol informati 2016 6:45 ume] in on in PM Serum or source Plasma data Alkaline 46 - 116 U/L High No Jun 14 phosphata informati 2017 6:45 se on in PM [Enzymati source c data activity/ volume] in Serum or Plasma Bilirubin 0.2 - 1.0 mg/dL Low No Jun 14 .total informati 2017 6:45 [Mass/vol on in PM ume] in source Serum or data Plasma Urea 7 - 18 mg/dL Normal No Oct 14 nitrogen informati 2017 6:45 [Mass/vol on in PM ume] in source Serum or data Plasma Calcium 8.5 - mg/dL Low No Oct 14 [Mass/vol 10.1 informati 2017 6:45 ume] in on in PM Serum or source Plasma data Chloride 98 - 107 mmoL/L Normal No Oct 14 [Moles/vo informati 2017 6:45 lume] in on in PM Serum or source Plasma data Carbon 21.0 - mmoL/L Normal No Oct 14 dioxide, 32.0 informati 2017 6:45 total on in PM [Moles/vo source lume] in data Serum or Plasma Creatinin 0.55 - mg/dL Low No Oct 14 e 1.02 informati 2017 6:45 [Mass/vol on in PM ume] in source Serum or data Plasma Creatinin 50 - 200 ML/MIN High No Oct 14 e renal informati 2017 6:45 clearance on in PM source predicted data by Cockcroft -Gault formula Estimated 59- ML/MIN No REFERENCE Oct 14 informati RANGE: 2017 6:45 glomerula on in >60 PM r source ML/MIN/1. filtratio data 73 SQUARE n rate METERSIf (GF this patient is -A merican, then multiply theresult by 1.210. Globulin 1.3 - 3.2 gm/dL High No Oct 14 [Mass/vol informati 2016 6:45 ume] in on in PM Serum source data Glucose 74 - 106 mg/dL Normal No Oct 14 [Mass/vol informati 2016 6:45 ume] in on in PM Serum or source Plasma data Potassium 3.5 - 5.1 mmoL/L Normal MAY BE Oct 14 ELEVATED 2016 6:45 [Moles/vo DUE TO PM lume] in SLIGHT Serum or HEMOLYSIS Plasma Sodium 136 - 145 mmoL/L Normal No Oct 14 [Moles/vo informati 2017 6:45 lume] in on in PM Serum or source Plasma data Aspartate 15 - 37 U/L Normal MAY BE Oct 14 ELEVATED 2016 6:45 aminotran DUE TO PM sferase SLIGHT [Enzymati HEMOLYSIS c activity/ volume] in Serum or Plasma Alanine 12 - 78 U/L Low No Oct 14 aminotran informati 2017 6:45 sferase on in PM [Enzymati source c data activity/ volume] in Serum or Plasma Protein 6.4 - 8.2 gm/dL Low No Jun 14 [Mass/vol informati 2016 6:45 ume] in on in PM Serum or source Plasma data CBC W Auto Differential panel in Blood Observa Value Referen Units Interpr Notes Date tion ce etation Range Basophils 0 - 0.2 K/MM3 Normal No Jun 26 informati 2016 6:45 [#/volume on in PM ] in source Blood by data Automated count Basophils 0.1 - 2.0 % Normal No Jun 14 /100 informati 2017 6:45 leukocyte on in PM s in source Blood by data Automated count Eosinophi 0.0 - 0.4 K/mm3 Normal No Jun 26 ls informati 2016 6:45 [#/volume on in PM ] in source Blood by data Automated count Eosinophi 0.1 - % Normal No Jun 26 ls/100 12.0 informati 2016 6:45 leukocyte on in PM s in source Blood by data Automated count Granulocy 1.8 - 7.8 K/mm3 High No Jun 26 gillian informati 2016 6:45 [#/volume on in PM ] in source Blood by data Automated count Granulocy 37.0 - % Normal No Jun 26 gillian/100 80.0 informati 2016 6:45 leukocyte on in PM s in source Blood by data Automated count Hematocri 37.0 - % Low No Jun 26 t [Volume 47.0 informati 2016 6:45 on in PM Fraction] source of Blood data Hemoglobi 12.2 - g/dL Low No Jun 26 n 16.2 informati 2016 6:45 [Mass/vol on in PM ume] in source Blood data Lymphocyt 0.7 - 4.5 K/mm3 Normal No Jun 26 es informati 2016 6:45 [#/volume on in PM ] in source Unspecifi data ed specimen by Automated count Lymphocyt 10 - 50.0 % Normal No Jun 26 es informati 2016 6:45 [#/volume on in PM ] in source Unspecifi data ed specimen by Automated count Erythrocy 27 - 31.2 pg Normal No Jun 26 te mean informati 2016 6:45 corpuscul on in PM ar source hemoglobi data n [Entitic mass] Erythrocy 31.8 - g/dl Normal No Jun 26 te mean 35.4 informati 2016 6:45 corpuscul on in PM ar source hemoglobi data n concentra tion [Mass/vol ume] by Automated count Erythrocy 82.2 - fl Normal No Jun 26 te mean 97.8 informati 2016 6:45 corpuscul on in PM ar volume source [Entitic data volume] by Automated count Monocytes 0.1 - 1.0 K/mm3 Normal No Jun 14 informati 2016 6:45 [#/volume on in PM ] in source Blood by data Automated count Monocytes 1.7 - 9.3 % Normal No Jun 14 /100 informati 2016 6:45 leukocyte on in PM s in source Blood by data Automated count Platelet 7.4 - fl High No Jun 26 mean 10.4 informati 2016 6:45 volume on in PM [Entitic source volume] data in Blood by Automated count Platelets 142 - 424 K/mm3 Normal No Jun 26 inform2016 6:45 [#/volume on in PM ] in source Blood data Erythrocy 4.2 - 5.4 M/mm3 Low No Jun 26 gillian informati 2016 6:45 [#/volume on in PM ] in source Amniotic data fluid Erythrocy 11.5 - % Normal No Jun 26 te 17.5 informati 2016 6:45 distribut on in PM ion width source [Entitic data volume] by Automated count Leukocyte 4.8 - K/MM3 Normal No Jun 26 s 10.8 informati 2016 6:45 [#/volume on in PM ] in source Blood data Urinalysis dipstick W Reflex Microscopic panel in Urine Observa Value Referen Units Interpr Notes Date tion ce etation Range Appeara CLOUDY CLEAR No No No Jun 26 nce of informa informa informa 2016 Urine tion in tion in tion in 6:35 PM source source source data data data Bacteri 2+ O No No No Jun 26 a informa informa informa 2016 [Presen tion in tion in tion in 6:35 PM ce] in source source source Urine data data data sedimen t by Light microsc opy Bilirub NEGATIV NEG No No No Jun 26 in E informa informa informa 2016 [Presen tion in tion in tion in 6:35 PM ce] in source source source Urine data data data by Test strip Erythro 3+ NEG No Abnorma No Jun 26 cytes informa l informa 2016 [Presen tion in tion in 6:35 PM ce] in source source Urine data data Color DK YELLOW No No No Jun 26 of YELLOW informa informa informa 2017 Urine tion in tion in tion in 6:35 PM source source source data data data Glucose NEG No No No Jun 26 [Mass/vol informati informati informati 2017 6:35 ume] in on in on in on in PM Urine by source source source Test data data data strip Ketones NEGATIV NEG mg/dL No No Jun 26 E informa informa 2016 [Presen tion in tion in 6:35 PM ce] in source source Urine data data by Automat ed test strip Mucus 1+ NEG No Abnorma No Jun 26 [Presen informa l informa 2016 ce] in tion in tion in 6:35 PM Urine source source sedimen data data t by Light microsc opy Nitrite NEGATIV NEG No No No Jun 26 E informa informa informa 2016 [Presen tion in tion in tion in 6:35 PM ce] in source source source Urine data data data by Test strip pH of 5.0 - 8.5 No Normal No Jun 26 Urine informati informati 2017 6:35 on in on in PM source source data data Protein NEG mg/dL High No Jun 26 [Mass/vol informati 2017 6:35 ume] in on in PM Urine by source Automated data test strip Erythro 20-50 0 rbc/hpf No No Jun 26 cytes informa informa 2016 [Presen tion in tion in 6:35 PM ce] in source source Urine data data sedimen t by Light microsc opy Specific 1.005 - No Normal No Jun 26 gravity 1.030 informati informati 2017 6:35 of Urine on in on in PM source source data data Epithel 10-20 0 - 5 #/hpf No No Jun 26 ial informa informa 2017 cells.s tion in tion in 6:35 PM quamous source source data data [Presen ce] in Urine sedimen t by Microsc opy high power field Urobili 1.0 NEG E.U./dL No No Jun 26 nogen informa informa 2016 [Presen tion in tion in 6:35 PM ce] in source source Urine data data by Test strip Leukocy [5 O wbc/hpf No No Jun 26 gillian wbc/hpf informa informa 2016 [#/volu ; 10 tion in tion in 6:35 PM me] in wbc/hpf source source Urine ] data data Drugs identified in Urine by Screen method Observa Value Referen Units Interpr Notes Date tion ce etation Range Positive urine drug screen samples are stored for 7 days. Contact the Lab if confirmation of positives is needed. Ampheta NEGATIV <1000 ng/mL No No Jun 26 mine E informa informa 2016 [Presen tion in tion in 6:35 PM ce] in source source Urine data data by Screen method Barbitura <200 ng/mL No No Jun 26 gillian informati informati 2016 6:35 [Mass/vol on in on in PM ume] in source source Urine by data data Screen method Benzodiaz 200 ng/mL ng/mL No No Jun 26 epines informati informati 2016 6:35 [Mass/vol on in on in PM ume] in source source Serum or data data Plasma by Screen method Cocaine <300 ng/g No No Jun 26 [Mass/vol informati informati 2016 6:35 ume] in on in on in PM Unspecifi source source ed data data specimen Methadone <300 ng/mL No No Jun 26 informati informati 2016 6:35 [Mass/vol on in on in PM ume] in source source Unspecifi data data ed specimen Opiates <300 ng/mL High This is Jun 26 [Mass/vol an 2017 6:35 ume] in UNCONFIRM PM Unspecifi ED ed result. specimen This result is for medicalpu rposes and/or treatment only. Phencycli <25 ng/mL No No Jun 26 dine informati informati 2016 6:35 [Mass/vol on in on in PM ume] in source source Unspecifi data data ed specimen 11-Hydr NEGATIV <50 ng/mL No No Jun 26 oxy E informa informa 2016 delta-9 tion in tion in 6:35 PM source source tetrahy data data drocann abinol [Presen ce] in Unspeci fied specime n Urinalysis dipstick W Reflex Microscopic panel in Urine Observa Value Referen Units Interpr Notes Date tion ce etation Range Appeara CLOUDY CLEAR No No No Jun 26 nce of informa informa informa 2017 Urine tion in tion in tion in 6:35 PM source source source data data data Bilirub NEGATIV NEG No No No Jun 26 in E informa informa informa 2016 [Presen tion in tion in tion in 6:35 PM ce] in source source source Urine data data data by Test strip Erythro 3+ NEG No Abnorma No Jun 26 cytes informa l informa 2016 [Presen tion in tion in 6:35 PM ce] in source source Urine data data Color DK YELLOW No No No Jun 26 of YELLOW informa informa informa 2016 Urine tion in tion in tion in 6:35 PM source source source data data data Glucose NEG No No No Jun 26 [Mass/vol informati informati informati 2016 6:35 ume] in on in on in on in PM Urine by source source source Test data data data strip Ketones NEGATIV NEG mg/dL No No Jun 26 E informa informa 2016 [Presen tion in tion in 6:35 PM ce] in source source Urine data data by Automat ed test strip Mucus 1+ NEG No Abnorma No Jun 26 [Presen informa l informa 2016 ce] in tion in tion in 6:35 PM Urine source source sedimen data data t by Light microsc opy Nitrite NEGATIV NEG No No No Jun 26 E informa informa informa 2016 [Presen tion in tion in tion in 6:35 PM ce] in source source source Urine data data data by Test strip pH of 5.0 - 8.5 No Normal No Jun 26 Urine informati informati 2016 6:35 on in on in PM source source data data Protein NEG mg/dL High No Jun 26 [Mass/vol informati 2016 6:35 ume] in on in PM Urine by source Automated data test strip Specific 1.005 - No Normal No Jun 26 gravity 1.030 informati informati 2016 6:35 of Urine on in on in PM source source data data Urobili 1.0 NEG E.U./dL No No Jun 26 nogen informa informa 2016 [Presen tion in tion in 6:35 PM ce] in source source Urine data data by Test strip Hemoglobin & Hematocrit panel in Blood Observa Value Referen Units Interpr Notes Date tion ce etation Range Hematocri 37.0 - % Low No Jun 25 t [Volume 47.0 ati 2016 6:00 on in AM Fraction] source of Blood data Hemoglobi 12.2 - g/dL Low No Jun 25 n 16.2 ati 2016 6:00 [Mass/vol on in AM ume] in source Blood data pH of Cord blood Observa Value Referen Units Interpr Notes Date tion ce etation Range pH of 7.35 - No Low No Jun 24 Cord 7.45 informati informati 2016 blood on in on in 12:20 PM source source data data Urinalysis dipstick W Reflex Microscopic panel in Urine Observa Value Referen Units Interpr Notes Date tion ce etation Range SPECIMEN COMMENT: [employer] Collected by nurse? Y Hold specimen in OE? N Appeara CLEAR CLEAR No No No Jun 24 nce of informa informa informa 2016 Urine tion in tion in tion in 10:20 source source source AM data data data Bacteri OCC O No No No Jun 24 a informa informa informa 2016 [Presen tion in tion in tion in 10:20 ce] in source source source AM Urine data data data sedimen t by Light microsc opy Bilirub NEGATIV NEG No No No Jun 24 in E informa informa informa 2016 [Presen tion in tion in tion in 10:20 ce] in source source source AM Urine data data data by Test strip Erythro NEGATIV NEG No No No Jun 24 cytes E informa informa informa 2016 [Presen tion in tion in tion in 10:20 ce] in source source source AM Urine data data data Color YELLOW YELLOW No No No Jun 24 of informa informa informa 2016 Urine tion in tion in tion in 10:20 source source source AM data data data Glucose NEG No No No Jun 24 [Mass/vol informati informati informati 2016 ume] in on in on in on in 10:20 AM Urine by source source source Test data data data strip Ketones NEGATIV NEG mg/dL No No Jun 24 E informa informa 2016 [Presen tion in tion in 10:20 ce] in source source AM Urine data data by Automat ed test strip Mucus NEGATIV NEG No No No Jun 24 [Presen E informa informa informa 2017 ce] in tion in tion in tion in 10:20 Urine source source source AM sedimen data data data t by Light microsc opy Mucus 1+ OCC No No No Jun 24 [Presen informa informa informa 2016 ce] in tion in tion in tion in 10:20 Urine source source source AM sedimen data data data t by Light microsc opy Nitrite NEGATIV NEG No No No Jun 24 E informa informa informa 2016 [Presen tion in tion in tion in 10:20 ce] in source source source AM Urine data data data by Test strip pH of 5.0 - 8.5 No Normal No Jun 24 Urine informati informati 2017 on in on in 10:20 AM source source data data Protein NEG mg/dL No No Jun 24 [Mass/vol informati informati 2016 ume] in on in on in 10:20 AM Urine by source source Automated data data test strip Erythro NONE 0 rbc/hpf No No Jun 24 cytes informa informa 2016 [Presen tion in tion in 10:20 ce] in source source AM Urine data data sedimen t by Light microsc opy Specific 1.005 - No Normal No Jun 24 gravity 1.030 informati informati 2016 of Urine on in on in 10:20 AM source source data data Epithel OCC 0 - 5 #/hpf No No Jun 24 ial informa informa 2017 cells.s tion in tion in 10:20 quamous source source AM data data [Presen ce] in Urine sedimen t by Microsc opy high power field Urobili 0.2 NEG E.U./dL No No Jun 24 nogen informa informa 2016 [Presen tion in tion in 10:20 ce] in source source AM Urine data data by Test strip Leukocyte O wbc/hpf No No Jun 24 s informati informati 2016 [#/volume on in on in 10:20 AM ] in source source Urine data data Urinalysis dipstick W Reflex Microscopic panel in Urine Observa Value Referen Units Interpr Notes Date tion ce etation Range SPECIMEN COMMENT: [employer] Collected by nurse? Y Hold specimen in OE? N Appeara CLEAR CLEAR No No No Jun 24 nce of informa informa informa 2017 Urine tion in tion in tion in 10:20 source source source AM data data data Bilirub NEGATIV NEG No No No Jun 24 in E informa informa informa 2016 [Presen tion in tion in tion in 10:20 ce] in source source source AM Urine data data data by Test strip Erythro NEGATIV NEG No No No Jun 24 cytes E informa informa informa 2016 [Presen tion in tion in tion in 10:20 ce] in source source source AM Urine data data data Color YELLOW YELLOW No No No Jun 24 of informa informa informa 2017 Urine tion in tion in tion in 10:20 source source source AM data data data Glucose NEG No No No Jun 24 [Mass/vol informati informati informati 2016 ume] in on in on in on in 10:20 AM Urine by source source source Test data data data strip Ketones NEGATIV NEG mg/dL No No Jun 24 E informa informa 2016 [Presen tion in tion in 10:20 ce] in source source AM Urine data data by Automat ed test strip Mucus NEGATIV NEG No No No Jun 24 [Presen E informa informa informa 2016 ce] in tion in tion in tion in 10:20 Urine source source source AM sedimen data data data t by Light microsc opy Nitrite NEGATIV NEG No No No Jun 24 E informa informa informa 2016 [Presen tion in tion in tion in 10:20 ce] in source source source AM Urine data data data by Test strip pH of 5.0 - 8.5 No Normal No Jun 24 Urine informati informati 2016 on in on in 10:20 AM source source data data Protein NEG mg/dL No No Jun 24 [Mass/vol informati informati 2016 ume] in on in on in 10:20 AM Urine by source source Automated data data test strip Specific 1.005 - No Normal No Jun 24 gravity 1.030 informati informati 2016 of Urine on in on in 10:20 AM source source data data Urobili 0.2 NEG E.U./dL No No Jun 24 nogen informa informa 2016 [Presen tion in tion in 10:20 ce] in source source AM Urine data data by Test strip Blood type & Indirect antibody screen panel in Blood Observa Value Referen Units Interpr Notes Date tion ce etation Range Blood NEGATIV NEGATIV No No No Jun 23 group E E informa informa informa 2016 antibod tion in tion in tion in 5:44 PM y source source source screen data data data [Presen ce] in Serum or Plasma Rh POSITIV No No No No Jun 23 [Type] E informa informa informa informa 2017 in tion in tion in tion in tion in 5:44 PM Blood source source source source data data data data ABO A No No No Jun 23 group informa informa informa 2016 [Type] tion in tion in tion in 5:44 PM in source source source Blood data data data CBC W Auto Differential panel in Blood Observa Value Referen Units Interpr Notes Date tion ce etation Range Basophils 0 - 0.2 K/MM3 Normal No Jun 23 informati 2016 5:44 [#/volume on in PM ] in source Blood by data Automated count Basophils 0.1 - 2.0 % Normal No Jun 23 informati 2016 5:44 leukocyte on in PM s in source Blood by data Automated count Eosinophi 0.0 - 0.4 K/mm3 Normal No Jun 23 ls informati 2016 5:44 [#/volume on in PM ] in source Blood by data Automated count Eosinophi 0.1 - % Normal No Jun 23 ls/100 12.0 informati 2016 5:44 leukocyte on in PM s in source Blood by data Automated count Granulocy 1.8 - 7.8 K/mm3 High No Jun 23 gillian informati 2016 5:44 [#/volume on in PM ] in source Blood by data Automated count Granulocy 37.0 - % Normal No Jun 23 gillian/100 80.0 informati 2016 5:44 leukocyte on in PM s in source Blood by data Automated count Hematocri 37.0 - % Low No Jun 23 t [Volume 47.0 informati 2016 5:44 on in PM Fraction] source of Blood data Hemoglobi 12.2 - g/dL Low No Jun 23 n 16.2 informati 2016 5:44 [Mass/vol on in PM ume] in source Blood data Lymphocyt 0.7 - 4.5 K/mm3 Normal No Jun 23 es informati 2016 5:44 [#/volume on in PM ] in source Unspecifi data ed specimen by Automated count Lymphocyt 10 - 50.0 % Normal No Jun 23 es informati 2016 5:44 [#/volume on in PM ] in source Unspecifi data ed specimen by Automated count Erythrocy 27 - 31.2 pg Normal No Jun 23 te mean inform2016 5:44 corpuscul on in PM ar source hemoglobi data n [Entitic mass] Erythrocy 31.8 - g/dl Normal No Jun 23 te mean 35.4 informati 2016 5:44 corpuscul on in PM ar source hemoglobi data n concentra tion [Mass/vol ume] by Automated count Erythrocy 82.2 - fl Normal No Jun 23 te mean 97.8 informati 2016 5:44 corpuscul on in PM ar volume source [Entitic data volume] by Automated count Monocytes 0.1 - 1.0 K/mm3 Normal No Jun [id number] 5:44 [#/volume on in PM ] in source Blood by data Automated count Monocytes 1.7 - 9.3 % Normal No Jun 23 /100 informati 2016 5:44 leukocyte on in PM s in source Blood by data Automated count Platelet 7.4 - fl High No Jun 23 mean 10.4 informati 2016 5:44 volume on in PM [Entitic source volume] data in Blood by Automated count Platelets 142 - 424 K/mm3 Normal No Jun [id number] 5:44 [#/volume on in PM ] in source Blood data Erythrocy 4.2 - 5.4 M/mm3 Low No Jun 23 gillian informati 2016 5:44 [#/volume on in PM ] in source Amniotic data fluid Erythrocy 11.5 - % Normal No Jun 23 te 17.5 informati 2016 5:44 distribut on in PM ion width source [Entitic data volume] by Automated count Leukocyte 4.8 - K/MM3 Normal No Jun 23 s 10.8 informati 2016 5:44 [#/volume on in PM ] in source Blood data Drugs identified in Urine by Screen method Observa Value Referen Units Interpr Notes Date tion ce etation Range Collected by nurse? Y Hold specimen in OE? N Positive urine drug screen samples are stored for 7 days. Contact the Lab if confirmation of positives is needed. Ampheta NEGATIV <1000 ng/mL No No Jun 23 mine E informa informa 2016 [Presen tion in tion in 5:20 PM ce] in source source Urine data data by Screen method Barbitura <200 ng/mL No No Jun 23 gillian informati informati 2016 5:20 [Mass/vol on in on in PM ume] in source source Urine by data data Screen method Benzodiaz 200 ng/mL ng/mL No No Jun 23 epines informati informati 2016 5:20 [Mass/vol on in on in PM ume] in source source Serum or data data Plasma by Screen method Cocaine <300 ng/g No No Jun 23 [Mass/vol informati informati 2016 5:20 ume] in on in on in PM Unspecifi source source ed data data specimen Methadone <300 ng/mL No No Jun 23 informati informati 2016 5:20 [Mass/vol on in on in PM ume] in source source Unspecifi data data ed specimen Opiates <300 ng/mL No No Jun 23 [Mass/vol informati informati 2016 5:20 ume] in on in on in PM Unspecifi source source ed data data specimen Phencycli <25 ng/mL No No Jun 23 dine informati informati 2016 5:20 [Mass/vol on in on in PM ume] in source source Unspecifi data data ed specimen 11-Hydr NEGATIV <50 ng/mL No No Jun 23 oxy E informa informa 2017 delta-9 tion in tion in 5:20 PM source source tetrahy data data drocann abinol [Presen ce] in Unspeci fied specime n [id number].placental [Presence] in Vaginal fluid Observa Value Referen Units Interpr Notes Date tion ce etation Range Alpha-1 POSITIV No No No No Jun 11 -Microg E- informa informa informa informa 2017 lobulin RUPTURE tion in tion in tion in tion in 4:00 PM .placen D source source source source gino data data data data [Presen ce] in Vaginal fluid Urinalysis dipstick W Reflex Microscopic panel in Urine Observa Value Referen Units Interpr Notes Date tion ce etation Range Collected by nurse? Y Hold specimen in OE? N Appeara CLEAR CLEAR No No No May 18 nce of informa informa informa 2017 Urine tion in tion in tion in 11:55 source source source PM data data data Bacteri 1+ O No No No Sep 18 a informa informa informa 2017 [Presen tion in tion in tion in 11:55 ce] in source source source PM Urine data data data sedimen t by Light microsc opy Bilirub NEGATIV NEG No No BILIRUB Sep 18 in E informa informa IN 2017 [Presen tion in tion in CONFIRM 11:55 ce] in source source ED WITH PM Urine data data by Test ICTOTES strip T Erythro NEGATIV NEG No No No Sep 18 cytes E informa informa informa 2017 [Presen tion in tion in tion in 11:55 ce] in source source source PM Urine data data data Calcium 1+ NONE #/hpf No No Sep 18 informa informa 2017 oxalate tion in tion in 11:55 source source PM crystal data data s [Presen ce] in Urine sedimen t by Light microsc opy Color YELLOW YELLOW No No No Sep 18 of informa informa informa 2017 Urine tion in tion in tion in 11:55 source source source PM data data data Glucose NEG No No No Sep 18 [Mass/vol informati informati informati 2017 ume] in on in on in on in 11:55 PM Urine by source source source Test data data data strip Ketones NEGATIV NEG mg/dL No No Sep 18 E informa informa 2016 [Presen tion in tion in 11:55 ce] in source source PM Urine data data by Automat ed test strip Mucus 2+ NEG No Abnorma No Sep 18 [Presen informa l informa 2017 ce] in tion in tion in 11:55 Urine source source PM sedimen data data t by Light microsc opy Mucus 1+ OCC No No No Sep 18 [Presen informa informa informa 2017 ce] in tion in tion in tion in 11:55 Urine source source source PM sedimen data data data t by Light microsc opy Nitrite NEGATIV NEG No No No Sep 18 E informa informa informa 2017 [Presen tion in tion in tion in 11:55 ce] in source source source PM Urine data data data by Test strip pH of 5.0 - 8.5 No Normal No Sep 18 Urine informati informati 2017 on in on in 11:55 PM source source data data Protein NEG mg/dL No No Sep 18 [Mass/vol informati informati 2016 ume] in on in on in 11:55 PM Urine by source source Automated data data test strip Specific 1.005 - No Normal No May 18 gravity 1.030 informati informati 2016 of Urine on in on in 11:55 PM source source data data Epithel 5-10 0 - 5 #/hpf No No Sep 18 ial informa informa 2017 cells.s tion in tion in 11:55 quamous source source PM data data [Presen ce] in Urine sedimen t by Microsc opy high power field Trichom 1+ NONE No No No Sep 18 onas sp informa informa informa 2017 tion in tion in tion in 11:55 [Presen source source source PM ce] in data data data Urine by Light microsc opy Urobili 4.0 NEG E.U./dL No No Sep 18 nogen informa informa 2016 [Presen tion in tion in 11:55 ce] in source source PM Urine data data by Test strip Leukocy [10 O wbc/hpf No No Sep 18 gillian wbc/hpf informa informa 2016 [#/volu ; 20 tion in tion in 11:55 me] in wbc/hpf source source PM Urine ] data data Drugs identified in Urine by Screen method Observa Value Referen Units Interpr Notes Date tion ce etation Range Collected by nurse? Y Hold specimen in OE? N Positive urine drug screen samples are stored for 7 days. Contact the Lab if confirmation of positives is needed. Ampheta NEGATIV <1000 ng/mL No No Sep 18 mine E informa informa 2016 [Presen tion in tion in 11:55 ce] in source source PM Urine data data by Screen method Barbitura <200 ng/mL No No Sep 18 gillian informati informati 2016 [Mass/vol on in on in 11:55 PM ume] in source source Urine by data data Screen method Benzodiaz 200 ng/mL ng/mL No No Sep 18 epines informati informati 2017 [Mass/vol on in on in 11:55 PM ume] in source source Serum or data data Plasma by Screen method Cocaine <300 ng/g No No Sep 18 [Mass/vol informati informati 2016 ume] in on in on in 11:55 PM Unspecifi source source ed data data specimen Methadone <300 ng/mL No No Sep 18 informati informati 2017 [Mass/vol on in on in 11:55 PM ume] in source source Unspecifi data data ed specimen Opiates <300 ng/mL No No Sep 18 [Mass/vol informati informati 2016 ume] in on in on in 11:55 PM Unspecifi source source ed data data specimen Phencycli <25 ng/mL No No Sep 18 dine informati informati 2017 [Mass/vol on in on in 11:55 PM ume] in source source Unspecifi data data ed specimen 11-Hydr NEGATIV <50 ng/mL No No Sep 18 oxy E informa informa 2017 delta-9 tion in tion in 11:55 source source PM tetrahy data data drocann abinol [Presen ce] in Unspeci fied specime n Urinalysis dipstick W Reflex Microscopic panel in Urine Observa Value Referen Units Interpr Notes Date tion ce etation Range Collected by nurse? Y Hold specimen in OE? N Appeara CLEAR CLEAR No No No Sep 18 nce of informa informa informa 2017 Urine tion in tion in tion in 11:55 source source source PM data data data Bilirub NEGATIV NEG No No BILIRUB Sep 18 in E informa informa IN 2017 [Presen tion in tion in CONFIRM 11:55 ce] in source source ED WITH PM Urine data data by Test ICTOTES strip T Erythro NEGATIV NEG No No No Sep 18 cytes E informa informa informa 2017 [Presen tion in tion in tion in 11:55 ce] in source source source PM Urine data data data Color YELLOW YELLOW No No No Sep 18 of informa informa informa 2017 Urine tion in tion in tion in 11:55 source source source PM data data data Glucose NEG No No No Sep 18 [Mass/vol informati informati informati 2016 ume] in on in on in on in 11:55 PM Urine by source source source Test data data data strip Ketones NEGATIV NEG mg/dL No No Sep 18 E informa informa 2017 [Presen tion in tion in 11:55 ce] in source source PM Urine data data by Automat ed test strip Mucus 2+ NEG No Abnorma No Sep 18 [Presen informa l informa 2017 ce] in tion in tion in 11:55 Urine source source PM sedimen data data t by Light microsc opy Nitrite NEGATIV NEG No No No Sep 18 E informa informa informa 2017 [Presen tion in tion in tion in 11:55 ce] in source source source PM Urine data data data by Test strip pH of 5.0 - 8.5 No Normal No Sep 18 Urine informati informati 2017 on in on in 11:55 PM source source data data Protein NEG mg/dL No No Sep 18 [Mass/vol informati informati 2017 ume] in on in on in 11:55 PM Urine by source source Automated data data test strip Specific 1.005 - No Normal No Sep 18 gravity 1.030 informati informati 2017 of Urine on in on in 11:55 PM source source data data Urobili 4.0 NEG E.U./dL No No Sep 18 nogen informa informa 2016 [Presen tion in tion in 11:55 ce] in source source PM Urine data data by Test strip Streptococcus pyogenes Ag [Presence] in Unspecified specimen Observa Value Referen Units Interpr Notes Date tion ce etation Range Strepto NOT NOTDETE No No LOT # N Sep 14 coccus DETECTE CTED informa informa A EXP 2017 pyogene D tion in tion in DATE N 5:10 PM s Ag source source A [Presen data data ce] in Unspeci fied specime n Drugs identified in Urine by Screen method Observa Value Referen Units Interpr Notes Date tion ce etation Range Collected by nurse? N Hold specimen in OE? Y Positive urine drug screen samples are stored for 7 days. Contact the Lab if confirmation of positives is needed. Ampheta NEGATIV <1000 ng/mL No No Sep 1 mine E informa informa 2017 [Presen tion in tion in 5:41 PM ce] in source source Urine data data by Screen method Barbitura <200 ng/mL No No Sep 1 gillian informati informati 2017 5:41 [Mass/vol on in on in PM ume] in source source Urine by data data Screen method Benzodiaz 200 ng/mL ng/mL No No Sep 1 epines informati informati 2017 5:41 [Mass/vol on in on in PM ume] in source source Serum or data data Plasma by Screen method Cocaine <300 ng/g No No Sep 1 [Mass/vol informati informati 2017 5:41 ume] in on in on in PM Unspecifi source source ed data data specimen Methadone <300 ng/mL No No Sep 1 informati informati 2017 5:41 [Mass/vol on in on in PM ume] in source source Unspecifi data data ed specimen Opiates <300 ng/mL No No Sep 1 [Mass/vol informati informati 2017 5:41 ume] in on in on in PM Unspecifi source source ed data data specimen Phencycli <25 ng/mL No No Sep 1 dine informati informati 2017 5:41 [Mass/vol on in on in PM ume] in source source Unspecifi data data ed specimen 11-Hydr NEGATIV <50 ng/mL No No Sep 1 oxy E informa informa 2017 delta-9 tion in tion in 5:41 PM source source tetrahy data data drocann abinol [Presen ce] in Unspeci fied specime n Urinalysis dipstick W Reflex Microscopic panel in Urine Observa Value Referen Units Interpr Notes Date tion ce etation Range Collected by nurse? N Hold specimen in OE? Y Appeara CLEAR CLEAR No No No Sep 1 nce of informa informa informa 2017 Urine tion in tion in tion in 5:41 PM source source source data data data Bacteri 1+ O No No No Sep 1 a informa informa informa 2017 [Presen tion in tion in tion in 5:41 PM ce] in source source source Urine data data data sedimen t by Light microsc opy Bilirub NEGATIV NEG No No No Sep 1 in E informa informa informa 2017 [Presen tion in tion in tion in 5:41 PM ce] in source source source Urine data data data by Test strip Erythro NEGATIV NEG No No No Sep 1 cytes E informa informa informa 2017 [Presen tion in tion in tion in 5:41 PM ce] in source source source Urine data data data Color DK YELLOW No No No Sep 1 of YELLOW informa informa informa 2017 Urine tion in tion in tion in 5:41 PM source source source data data data Glucose NEG No No No Sep 1 [Mass/vol informati informati informati 2017 5:41 ume] in on in on in on in PM Urine by source source source Test data data data strip Ketones NEGATIV NEG mg/dL No No Sep 1 E informa informa 2017 [Presen tion in tion in 5:41 PM ce] in source source Urine data data by Automat ed test strip Mucus TRACE NEG No Abnorma No Sep 1 [Presen informa l informa 2017 ce] in tion in tion in 5:41 PM Urine source source sedimen data data t by Light microsc opy Mucus 1+ OCC No No No Sep 1 [Presen informa informa informa 2017 ce] in tion in tion in tion in 5:41 PM Urine source source source sedimen data data data t by Light microsc opy Nitrite NEGATIV NEG No No No Sep 1 E informa informa informa 2017 [Presen tion in tion in tion in 5:41 PM ce] in source source source Urine data data data by Test strip pH of 5.0 - 8.5 No Normal No Sep 1 Urine informati informati 2017 5:41 on in on in PM source source data data Protein NEG mg/dL No No Sep 1 [Mass/vol informati informati 2017 5:41 ume] in on in on in PM Urine by source source Automated data data test strip Specific 1.005 - No Normal No Sep 1 gravity 1.030 informati informati 2017 5:41 of Urine on in on in PM source source data data Epithel OCC 0 - 5 #/hpf No No Sep 1 ial informa informa 2017 cells.s tion in tion in 5:41 PM quamous source source data data [Presen ce] in Urine sedimen t by Microsc opy high power field Urobili 1.0 NEG E.U./dL No No Sep 1 nogen informa informa 2017 [Presen tion in tion in 5:41 PM ce] in source source Urine data data by Test strip Leukocy [3 O wbc/hpf No No Sep 1 gillian wbc/hpf informa informa 2017 [#/volu ; 5 tion in tion in 5:41 PM me] in wbc/hpf source source Urine ] data data Urinalysis dipstick W Reflex Microscopic panel in Urine Observa Value Referen Units Interpr Notes Date tion ce etation Range Collected by nurse? N Hold specimen in OE? Y Appeara CLEAR CLEAR No No No Sep 1 nce of informa informa informa 2017 Urine tion in tion in tion in 5:41 PM source source source data data data Bilirub NEGATIV NEG No No No Sep 1 in E informa informa informa 2017 [Presen tion in tion in tion in 5:41 PM ce] in source source source Urine data data data by Test strip Erythro NEGATIV NEG No No No Sep 1 cytes E informa informa informa 2017 [Presen tion in tion in tion in 5:41 PM ce] in source source source Urine data data data Color DK YELLOW No No No Sep 1 of YELLOW informa informa informa 2016 Urine tion in tion in tion in 5:41 PM source source source data data data Glucose NEG No No No Sep 1 [Mass/vol informati informati informati 2017 5:41 ume] in on in on in on in PM Urine by source source source Test data data data strip Ketones NEGATIV NEG mg/dL No No Sep 1 E informa informa 2016 [Presen tion in tion in 5:41 PM ce] in source source Urine data data by Automat ed test strip Mucus TRACE NEG No Abnorma No Sep 1 [Presen informa l informa 2016 ce] in tion in tion in 5:41 PM Urine source source sedimen data data t by Light microsc opy Nitrite NEGATIV NEG No No No Sep 1 E informa informa informa 2016 [Presen tion in tion in tion in 5:41 PM ce] in source source source Urine data data data by Test strip pH of 5.0 - 8.5 No Normal No Sep 1 Urine informati informati 2017 5:41 on in on in PM source source data data Protein NEG mg/dL No No Sep 1 [Mass/vol informati informati 2017 5:41 ume] in on in on in PM Urine by source source Automated data data test strip Specific 1.005 - No Normal No Sep 1 gravity 1.030 informati informati 2017 5:41 of Urine on in on in PM source source data data Urobili 1.0 NEG E.U./dL No No May 14 nogen informa informa 2017 [Presen tion in tion in 5:41 PM ce] in source source Urine data data by Test strip Glucose [Presence] in Urine by Test strip --1 hour post 75 g glucose PO Observa Value Referen Units Interpr Notes Date ti ce etation Range Glucose No mg/dL No No Apr 05 [Mass/vol informati informati informati 2016 2:05 ume] in on in on in [...] ume] in source Serum or data Plasma HBsAg Screen Observa Value Referen Units Interpr Notes ti ce etation Range Hepatit Negativ Negativ No No Perform Apr 05 is B e e informa informa ed at: 2017 virus tion in tion in CB - 1:58 PM surface source source [facility] Ag data data [Presen lin6 ce] in 370 Serum [place] by [facility] [id number] Directo r: Davy aquino PhD, Phone: [phone] Reagin Ab [Titer] in Serum by RPR Observa Value Referen Units Interpr Notes Date tion ce etation Range Reagin Ab NonRea<1: No No Performed Apr 05 [Titer] 1 informati informati at: CB 2017 1:58 in Serum on in on in - [facility] PM by RPR source source data data [id number] [place], [place] [id number] Pre Press Proofer: Davy Eng PhD, Phone: [phone] Rubella virus IgG Ab [Units/volume] in Serum by Immunoassay Observa Value Referen Units Interpr Notes Date tion ce etation Range Rubella Immune index No Non-immun Apr 05 virus IgG >0.99 informati e 2016 1:58 Ab on in <0.90Equi PM [Units/vo source vocal lume] in data 0.90 - Serum by 0.99Immun Immunoass e ay >0.99Perf ormed at: [facility] [address] [address] [id number] [address] [place], [place] [id number] Pre Press Proofer: Davy Eng PhD, Phone: [phone] Blood group antibody screen [Presence] in Serum or Plasma Observa Value Referen Units Interpr Notes Date ti ce etation Range Blood NEGATIV NEGATIV No No No Apr 05 group E E informa informa informa 2016 antibod tion in ti in ti in 1:58 PM y source source source screen data data data [Presen ce] in Serum or Plasma Rh [Type] in Blood Observa Value Referen Units Interpr Notes Date ce etation Range Rh POSITIV No No No No Apr 05 [Type] E informa informa informa informa 2016 in tion in tion in tion in tion in 1:58 PM Blood source source source source data data data data ABO group [Type] in Blood Observa Value Referen Units Interpr Notes ce etation Range ABO A No No No No Apr 05 group informa informa informa informa 2016 [Type] tion in ti in ti in tion in 1:58 PM in source source source source Blood data data data data CBC W Auto Differential panel in Blood Observa Value Referen Units Interpr Notes Date ti ce etation Range Basophils 0 - 0.2 K/MM3 Normal No Apr 05 informati 2016 1:58 [...] K/mm3 High No Apr 05 gillian informati 2017 1:58 [#/volume on in PM ] in source Blood by data Automated count Granulocy 37.0 - % High No Apr 05 gillian/100 80.0 informati 2017 1:58 leukocyte on in PM s in source Blood by data Automated count Hematocri 37.0 - % Low Apr 05 t [Volume 47.0 informati 2016 [...] Automated count Erythrocy 82.2 - fl High Apr 05 te mean 97.8 informati 2016 1:58 corpuscul on in PM ar volume source [Entitic data volume] by Automated count Monocytes 0.1 - 1.0 K/mm3 Normal No Apr 05 informati 2016 1:58 [#/volume on in PM ] in source Blood by data Automated count Monocytes 1.7 - 9.3 % Normal No Apr 05 / informati 2017 1:58 leukocyte on in PM s in source Blood by data Automated count Platelet 7.4 - fl Normal Apr 05 mean 10.4 informati 2017 1:58 volume on in PM [Entitic source [...] Notes Date tion ce etation Range Choriog 64908.3 No mIU/ML No NON-PRE February 10 informa informa [email or web address] opin.be tion in tion in FEMALES 9:03 [...] Notes Date tion ce etation Range Choriog 37918.5 No mIU/ML No NON-PRE February 04 informa informa [email or web address] opin.be tion in tion in FEMALES 9:50 [...] Interpr Notes Date tion ce etation Range Amylase 25 - 115 [...] Normal No February 04 [Mass/vol 10.1 informati 2016 9:50 ume] in on in [...] 3.5 - 5.1 mmoL/L Normal No February 042016 9:50 [Moles/vo on in PM lume] in source Serum or data Plasma Sodium 136 - 145 mmoL/L Normal No February 04 [Moles/vo 2016 9:50 lume] in on in PM Serum or source Plasma data Aspartate 15 - 37 U/L Low No February 042016 9:50 aminotran on in PM sferase source [Enzymati data c activity/ volume] in Serum or Plasma Alanine 12 - 78 U/L Normal February 04 aminotran 2016 9:50 sferase on in PM [Enzymati [...] 393 U/L Normal No February 04 [Enzymati ati 2016 9:50 c on in PM activity/ source volume] data in Serum or Plasma CBC W Auto Differential panel in Blood Observa Value Referen Units Interpr Notes Date tion ce etation Range Basophils 0 - 0.2 K/MM3 Normal No February 042016 9:50 [#/volume on in PM ] in source Blood by data Automated count Basophils 0.1 - 2.0 % Normal No February 04 / informati 2016 9:50 leukocyte on in PM s in source Blood by data Automated count Eosinophi 0.0 - 0.4 K/mm3 Normal No February 04 ls ati 2016 9:50 [#/volume on in PM ] in source Blood by data Automated count Eosinophi 0.1 - % Normal No February 04 ls/100 12.0 inform2016 9:50 leukocyte on in PM s in source Blood by data Automated count Granulocy 1.8 - 7.8 K/mm3 Normal No February 04 gillian 2016 9:50 [#/volume on in PM ] [...] 50.0 % Normal No February 04 es inform2016 9:50 [#/volume on in PM ] [...] 0.1 - 1.0 K/mm3 Normal No February 04 informati 2016 9:50 [#/volume on in PM ] in source Blood by data Automated count Monocytes 1.7 - 9.3 % Normal No February 04 / informati 2016 9:50 leukocyte on in PM [...] 5.4 M/mm3 Low No February 04 gillian informati 2016 9:50 [#/volume on in PM ] in source Amniotic data fluid Erythrocy 11.5 - % Normal No February 04 te 17.5 informati 2016 9:50 distribut on in PM ion width source [Entitic data volume] by Automated count Leukocyte 4.8 - K/MM3 Normal No February 04 s 10.8 informati 2016 9:50 [#/volume on in PM [...] Abnorma No February 04 [Presen informa l inform2016 ce] in tion in tion in 9:35 [...] February 04 onas sp informa informa informa 2016 tion in tion in tion in 9:35 [...]
--- OUTSIDE RECORDS SUMMARY | 2017-07-10 01:20 | External Medical Summary Rpt ---
[...] [Presen ce] in Unspeci fied specime n [id number].placental [Presence] in Vaginal fluid Observa Value Referen [...] data [Presen lin6 ce] in 370 Serum [place] by [facility] [id number] 69Lab Directo r: Davy aquino PhD, Phone: [phone] Reagin Ab [Titer] in Serum by RPR Observa Value Referen Units Interpr Notes Date tion ce etation Range Reagin Ab NonRea<1: No No Performed Apr 05 [Titer] 1 informati informati at: CB 2017 1:58 in Serum on in on in - [facility] PM by RPR source source data data [id number] [place], [place] [id number] Bleacher Operator: Davy Eng PhD, Phone: [phone] Rubella virus IgG Ab [Units/volume] in Serum by Immunoassay Observa Value Referen Units Interpr Notes Date tion ce etation Range Rubella Immune index No Non-immun Apr 05 virus IgG >0.99 informati e 2016 1:58 Ab on in <0.90Equi PM [Units/vo source vocal lume] in data 0.90 - Serum by 0.99Immun Immunoass e ay >0.99Perf ormed at: [facility] [address] [address] [place], [place] [id number] Bleacher Operator: Davy Eng PhD, Phone: [phone] Blood group antibody screen [Presence] in [...] Notes Date tion ce etation Range Choriog 70970.3 No mIU/ML No NON-PRE February 10 informa [...] Notes Date tion ce etation Range Choriog 78268.5 No mIU/ML No NON-PRE February 04 informa [...] - 7.8 K/mm3 Normal No February 04 gillain 2016 9:50 [#/volume on in PM ] [...]
--- NOTE | 2017-07-10 02:07 | Emergency Room Report ---
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 C/O DIZZINESS. 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 N Clinical Suspician of Infection? N Mental Status: 1 - Regular (Normal Baseline) Sepsis Risk:Low Sepsis Risk Have you (or family members/close friends) recently traveled outside the [place]? N If Yes, where/when: Have you had exposure to infectious disease within the past month? N TB? Other? Specify: Source patient, RN notes reviewed, family, old records Exam Limitations no limitations Comment pt with reported brief episode of slurred speech and questionable facial drooping lasted less than 1 minute with assoc mild caballero - at baseline at this time - Cardiac Chest Pain Chest pain indicative of cardiac No Timing/Duration this evening Severity moderate ALLERGIES Coded Allergies: adhesive tape (-- 05/13/17) Home Medications Reported Medications Furosemide (Furosemide) 20 MG FT DAILY #10 Bupropion Hcl (Bupropion XL) 150 MG PO DAILY #30 History Medical History General CAD? No Angina: No [place]: No Hypertension? No Hyperlipidemia? No CHF? No DVT? No PE? No COPD? No Asthma? Yes Anemia? No GERD? No Gastric ulcers? No GI Bleed? No Hernia? No Thyroid Problems? Yes Hypothyroidism? No CVA? No Seizures? Yes Diabetes? No Insulin Dependent: No Insulin Pump: No Home FSBS? No Renal Insuffiency? No End Stage Renal Disease? No UTI? Yes Stones? Yes BPH? No GB Disease: Yes Nephritic Syndrome? No Asplenia? No Hepatitis? No Sickle Cell Disease? No Arthritis? No Migraines? Yes Cataracts? No Glaucoma? No MRSA? No HIV? No TB? No Anxiety? Yes Depression? Yes Cancer? No More? 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 Respiratory denies cough, denies shortness of breath, denies wheezing Cardiovascular denies chest pain, denies syncope Gastrointestinal see HPI, denies abdominal pain, nausea, denies vomiting Genitourinary denies: dysuria, frequency, hesitancy, hematuria. Musculoskeletal denies back pain, denies joint pain, denies joint swelling, denies neck pain Skin denies rash Psychiatric/Neurological see HPI, headache, denies seizure, denies weakness, other Physical Exam Vital Signs Vital Signs Date Time Temp Pulse Resp B/P Pulse O2 O2 Flow FiO2 Ox Delivery Rate 07/10 0154 98.7 73 20 109/57 97 07/10 0038 98.4 75 20 154/100 99 - WBC >12,000 or <4,000 or 10% bands? 2 or more SIRS Criteria Met? B/P:109/57 MAP:118 Creatinine >2.0? UA output<0.5ml/kg/hr for 2 hrs? Platelet count >100,000? Lactate >2.0mmol/1? INR >1.2 or PTT > than 60 sec? Evidence of Organ Dysfunction? Provider documented clinical suspician of infection? N Sepsis Criteria Count: 1 Sepsis Risk: Low Sepsis Risk General Appearance no apparent distress Eye Exam - bilateral eye PERRL, bilateral eye EOMI Ear, Nose, Throat normal ENT inspection Neck supple Respiratory Status No: respiratory distress. Lung Sounds bilateral: lungs clear. Cardiovascular regular rate/rhythm, no peripheral edema, no gallop, no JVD, no murmur, no rub Peripheral Pulses Pulses normal Yes Gastrointestinal soft Extremities normal inspection Strength 4 Upper Ext (L), 4 Upper Ext (R), 4 Lower Ext (L), 4 Lower Ext (R) Neurologic alert, heading pinner II-XII nml as tested, no motor/sensory deficits Reflexes Reflexes normal No Mental status normal mood/affect Skin intact Medical Decision Making LABS/Meds/Orders Pt receiving controlled substance in ED? No Results/Orders Laboratory Tests 07/10/17 0050: Sodium 142, Potassium 3.6, Chloride 106, Carbon Dioxide 29, BUN 10, Creatinine 0.6, Estimated Creat Clear 190, Estimated GFR (MDRD) 125, Glucose 72 L, Calcium 9.0, Total Bilirubin 0.2, AST 15, ALT 29, Alkaline Phosphatase 160 H, Total Protein 6.4, Albumin 3.3 L, Globulin 3.1, Albumin/Globulin Ratio 1.1, WBC 7.7, RBC 4.10 L, Hgb 12.4, Hct 38.8, MCV 94.7, RDW 13.6, Plt Count 229, MPV 9.1, Gran % 52.9, Gran # 4.1, Lymphocytes % 38.7, Monocytes % 5.5, Eosinophils % 2.2, Basophils % 0.8, Lymphocytes # 3.0, Monocytes # 0.4, Eosinophils # 0.2, Basophils # 0.1, PUBS MCHC 32.0, MCH 30.3, Opiates Screen NEGATIVE, Urine Methadone Screen NEGATIVE, Barbiturates NEGATIVE, Phencyclidine Screen NEGATIVE, Amphetamines Screen NEGATIVE, Benzodiazepines Screen NEGATIVE, Cocaine Screen NEGATIVE, Marijuana (THC) Screen NEGATIVE, Urine Color YELLOW, Urine Appearance CLEAR, Urine pH 6.5, Ur Specific [place] 1.010, Urine Protein NEGATIVE, Urine Ketones NEGATIVE, Urine Blood 3+ H, Urine Nitrate NEGATIVE, Urine Bilirubin NEGATIVE, Urine Urobilinogen 0.2, Ur Leukocyte Esterase 1+ H, Urine RBC 5-10, Urine WBC 5-10, Ur Squamous Epith Cells 5-10, Urine Glucose NEGATIVE Current Medication Orders Sig/Manju Start time Last Medication Dose Route Stop Time Status Admin Sodium Chloride 10 ML PRN PRN 07/10 100 AC IV 07/11 49 Orders Procedure Date/time Status DIET-NOTHING BY MOUTH 07/10 B Active FSBS REQUEST BY CARE AREA 07/[address] HEAD W/O CONTRAST 07/10 57 Active CULTURE, URINE 07/10 50 Active URINE 07/[address] HEAD REQ 07/10 49 Active IV SALINE LOCK 07/10 49 Active URINALYSIS/COMPLETE 07/10 49 Complete DRUG ABUSE SCREEN (10) 07/10 49 Complete CBC WITH AUTO DIFF 07/10 49 Complete CHEM 12 PROFILE 07/10 49 Complete XRAY/CT/US XRAY/CT/US CT head CT interpretation by discussed w/radiologist Time results known: 0209 CT Results normal/NAD Departure Departure Time of Disposition 215 Disposition DC Home or Self Care(routine) Clinical Impression Primary Impression: Episode of transient neurologic symptoms Condition STABLE Referrals Álvaro Mckinnon MD Patient Instructions DI for Transient Ischemic Attack Additional Instructions see pcp for follow up Discharge Counseling Counseled pt/family regarding diagnosis, test results, medications/RX, follow up needs ED Critical Care Critical Care No at 0220
--- NOTE | 2017-07-10 02:07 | Emergency Room Report ---
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 C/O DIZZINESS. 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 N Clinical Suspician of Infection? N Mental Status: 1 - Regular (Normal Baseline) Sepsis Risk:Low Sepsis Risk Have you (or family members/close friends) recently traveled outside the [place]? N If Yes, where/when: Have you had exposure to infectious disease within the past month? N TB? Other? Specify: Source patient, RN notes reviewed, family, old records Exam Limitations no limitations Comment pt with reported brief episode of slurred speech and questionable facial drooping lasted less than 1 minute with assoc mild caballero - at baseline at this time - Cardiac Chest Pain Chest pain indicative of cardiac No Timing/Duration this evening Severity moderate ALLERGIES Coded Allergies: adhesive tape (-- 05/13/17) Home Medications Reported Medications Furosemide (Furosemide) 20 MG FT DAILY #10 Bupropion Hcl (Bupropion XL) 150 MG PO DAILY #30 History Medical History General CAD? No Angina: No [place]: No Hypertension? No Hyperlipidemia? No CHF? No DVT? No PE? No COPD? No Asthma? Yes Anemia? No GERD? No Gastric ulcers? No GI Bleed? No Hernia? No Thyroid Problems? Yes Hypothyroidism? No CVA? No Seizures? Yes Diabetes? No Insulin Dependent: No Insulin Pump: No Home FSBS? No Renal Insuffiency? No End Stage Renal Disease? No UTI? Yes Stones? Yes BPH? No GB Disease: Yes Nephritic Syndrome? No Asplenia? No Hepatitis? No Sickle Cell Disease? No Arthritis? No Migraines? Yes Cataracts? No Glaucoma? No MRSA? No HIV? No TB? No Anxiety? Yes Depression? Yes Cancer? No More? 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 Respiratory denies cough, denies shortness of breath, denies wheezing Cardiovascular denies chest pain, denies syncope Gastrointestinal see HPI, denies abdominal pain, nausea, denies vomiting Genitourinary denies: dysuria, frequency, hesitancy, hematuria. Musculoskeletal denies back pain, denies joint pain, denies joint swelling, denies neck pain Skin denies rash Psychiatric/Neurological see HPI, headache, denies seizure, denies weakness, other Physical Exam Vital Signs Vital Signs Date Time Temp Pulse Resp B/P Pulse O2 O2 Flow FiO2 Ox Delivery Rate 07/10 0154 98.7 73 20 109/57 97 07/10 0038 98.4 75 20 154/100 99 - WBC >12,000 or <4,000 or 10% bands? 2 or more SIRS Criteria Met? B/P:109/57 MAP:118 Creatinine >2.0? UA output<0.5ml/kg/hr for 2 hrs? Platelet count >100,000? Lactate >2.0mmol/1? INR >1.2 or PTT > than 60 sec? Evidence of Organ Dysfunction? Provider documented clinical suspician of infection? N Sepsis Criteria Count: 1 Sepsis Risk: Low Sepsis Risk General Appearance no apparent distress Eye Exam - bilateral eye PERRL, bilateral eye EOMI Ear, Nose, Throat normal ENT inspection Neck supple Respiratory Status No: respiratory distress. Lung Sounds bilateral: lungs clear. Cardiovascular regular rate/rhythm, no peripheral edema, no gallop, no JVD, no murmur, no rub Peripheral Pulses Pulses normal Yes Gastrointestinal soft Extremities normal inspection Strength 4 Upper Ext (L), 4 Upper Ext (R), 4 Lower Ext (L), 4 Lower Ext (R) Neurologic alert, tape calender II-XII nml as tested, no motor/sensory deficits Reflexes Reflexes normal No Mental status normal mood/affect Skin intact Medical Decision Making LABS/Meds/Orders Pt receiving controlled substance in ED? No Results/Orders Laboratory Tests 07/10/17 0050: Sodium 142, Potassium 3.6, Chloride 106, Carbon Dioxide 29, BUN 10, Creatinine 0.6, Estimated Creat Clear 190, Estimated GFR (MDRD) 125, Glucose 72 L, Calcium 9.0, Total Bilirubin 0.2, AST 15, ALT 29, Alkaline Phosphatase 160 H, Total Protein 6.4, Albumin 3.3 L, Globulin 3.1, Albumin/Globulin Ratio 1.1, WBC 7.7, RBC 4.10 L, Hgb 12.4, Hct 38.8, MCV 94.7, RDW 13.6, Plt Count 229, MPV 9.1, Gran % 52.9, Gran # 4.1, Lymphocytes % 38.7, Monocytes % 5.5, Eosinophils % 2.2, Basophils % 0.8, Lymphocytes # 3.0, Monocytes # 0.4, Eosinophils # 0.2, Basophils # 0.1, PUBS MCHC 32.0, MCH 30.3, Opiates Screen NEGATIVE, Urine Methadone Screen NEGATIVE, Barbiturates NEGATIVE, Phencyclidine Screen NEGATIVE, Amphetamines Screen NEGATIVE, Benzodiazepines Screen NEGATIVE, Cocaine Screen NEGATIVE, Marijuana (THC) Screen NEGATIVE, Urine Color YELLOW, Urine Appearance CLEAR, Urine pH 6.5, Ur Specific [place] 1.010, Urine Protein NEGATIVE, Urine Ketones NEGATIVE, Urine Blood 3+ H, Urine Nitrate NEGATIVE, Urine Bilirubin NEGATIVE, Urine Urobilinogen 0.2, Ur Leukocyte Esterase 1+ H, Urine RBC 5-10, Urine WBC 5-10, Ur Squamous Epith Cells 5-10, Urine Glucose NEGATIVE Current Medication Orders Sig/Manju Start time Last Medication Dose Route Stop Time Status Admin Sodium Chloride 10 ML PRN PRN 07/10 100 AC IV 07/11 49 Orders Procedure Date/time Status DIET-NOTHING BY MOUTH 07/10 B Active FSBS REQUEST BY CARE AREA 07/[address] HEAD W/O CONTRAST 07/10 57 Active CULTURE, URINE 07/10 50 Active URINE 07/[address] HEAD REQ 07/10 49 Active IV SALINE LOCK 07/10 49 Active URINALYSIS/COMPLETE 07/10 49 Complete DRUG ABUSE SCREEN (10) 07/10 49 Complete CBC WITH AUTO DIFF 07/10 49 Complete CHEM 12 PROFILE 07/10 49 Complete XRAY/CT/US XRAY/CT/US CT head CT interpretation by discussed w/radiologist Time results known: 0209 CT Results normal/NAD Departure Departure Time of Disposition 215 Disposition DC Home or Self Care(routine) Clinical Impression Primary Impression: Episode of transient neurologic symptoms Condition STABLE Referrals Álvaro Mckinnon MD Patient Instructions DI for Transient Ischemic Attack Additional Instructions see pcp for follow up Discharge Counseling Counseled pt/family regarding diagnosis, test results, medications/RX, follow up needs ED Critical Care Critical Care No at 0220
[2017-07-10 02:20] VITALS: BP 109/57
--- NOTE | 2017-07-10 07:07 | RADIOLOGY REPORT PS360 ---
CT HEAD W/O CONTRAST HISTORY: Dizziness, vertigo, confusion, altered mental status, altered level of consciousness VERTIGO / CONFUSION ORDERING PHYSICIAN: Omar Zheng MD PATIENT AGE: 22 years COMPARISON: None TECHNIQUE: Axial images obtained without contrast. Brain and bone windows reviewed. FINDINGS: No midline shift, mass effect, intracranial hemorrhage, hydrocephalus, or extra-axial fluid collection is evident. The calvarium has an unremarkable appearance. Small amount fluid in left mastoid sinus.. The visualized paranasal sinuses are unremarkable. IMPRESSION: 1. No acute intracranial findings. 2. Small amount fluid in left mastoid sinus.
[2017-07-12] MEDS ORDERED: MECLIZINE 25MG25 MG PO (00:25)
== END 2017-07-10 02:25 | disposition home or self-care (01) ==
LOC: ER 00:36
PROVIDERS: Emergency Medicine
DX: G45.8 Other transient cerebral ischemic attacks and related syndromes (principal); F17.210 Nicotine dependence, cigarettes, uncomplicated; F41.8 Other specified anxiety disorders